=== PATIENT | female | born 1955 | race Caucasian/White ===

== ENCOUNTER → 2017-02-15 | Outpatient (CLI) | payer BC ==
[~2017-02-15] MED LIST: ASPI-586 PO; ASPI-999 PO; CARV3.122 PO; FURO20TA4 PO; FURO40TA4 PO; LISI-552 PO; METO-352 PO; SACU1TAB PO; SPIR25TA3 PO
[2017-02-15 08:55] LABS: ANION GAP 8 MMOL/L (5-14); BLOOD UREA NITROGEN 24 MG/DL (7-18); BUN/CREATININE RATIO 31; CARBON DIOXIDE 25 MMOL/L (21-32); CHLORIDE 101 MMOL/L (98-107); CREATININE SERUM 0.78 MG/DL (0.60-1.30); GFR ESTIMATED > 60; GLUCOSE 87 MG/DL (70-105); MAGNESIUM 1.9 MG/DL (1.8-2.4); POTASSIUM 4.5 MMOL/L (3.6-5.0); SODIUM 134 MMOL/L (135-145)
== END ==
LOC: LAB 08:13
PROVIDERS: ATTEND Internal Medicine Cardiovascular Disease
DX: I42.0 Dilated cardiomyopathy (principal)
CPT/HCPCS: 36415; 80048; 83735

== ENCOUNTER → 2017-02-18 | Outpatient (CLI) | payer BC ==
[2017-02-18 15:27] LABS: ANION GAP 9 MMOL/L (5-14); BLOOD UREA NITROGEN 34 MG/DL (7-18); BUN/CREATININE RATIO 40; CALCIUM 10.1 MG/DL (8.5-10.1); CARBON DIOXIDE 25 MMOL/L (21-32); CHLORIDE 106 MMOL/L (98-107); CREATININE SERUM 0.84 MG/DL (0.60-1.30); GFR ESTIMATED > 60; GLUCOSE 72 MG/DL (70-105); POTASSIUM 4.4 MMOL/L (3.6-5.0); SODIUM 140 MMOL/L (135-145)
== END ==
LOC: LAB 14:32
PROVIDERS: ATTEND Nurse Practitioner Family
DX: I50.21 Acute systolic (congestive) heart failure (principal); I42.0 Dilated cardiomyopathy; R06.00 Dyspnea, unspecified; I34.0 Nonrheumatic mitral (valve) insufficiency; E66.8 Other obesity
CPT/HCPCS: 36415; 80048; 83735

== ENCOUNTER 2017-02-27 20:52 | Outpatient (CLI) | payer BC | END 2017-02-28 06:04 | disposition home or self-care (01) | LOC: SLEEP 20:52 | PROVIDERS: ATTEND Nurse Practitioner Family | DX: G47.33 Obstructive sleep apnea (adult) (pediatric) (principal) | CPT/HCPCS: 95810 ==

== ENCOUNTER → 2017-03-24 | Outpatient (CLI) | payer BC ==
[2017-03-24 17:02] LABS: BASOPHILS # (AUTO) 0.1 10^3/uL (0.0-0.1); BASOPHILS % (AUTO) 1 % (0-10); EOSINOPHILS # (AUTO) 0.4 10^3/uL (0.0-0.3); EOSINOPHILS % (AUTO) 4 % (0-10); LYMPHOCYTES # (AUTO) 3.3 X 10^3 (1.0-4.0); LYMPHOCYTES % (AUTO) 40 % (12-44); MEAN CORPUSCULAR HEMOGLOBIN 23 PG (25-34); MEAN CORPUSCULAR HGB CONC 32 G/DL (32-36); MEAN CORPUSCULAR VOLUME 73 FL (80-99); MEAN PLATELET VOLUME 9.2 FL (7.4-10.4); MONOCYTES # (AUTO) 0.8 X 10^3 (0.0-1.0); MONOCYTES % (AUTO) 9 % (0-12); NEUTROPHILS # (AUTO) 3.9 X 10^3 (1.8-7.8); NEUTROPHILS % (AUTO) 47 % (42-75); PLATELET COUNT 443 10^3/uL (130-400); RED BLOOD COUNT 4.86 10^6/uL (4.35-5.85); RED CELL DISTRIBUTION WIDTH 19.6 % (10.0-14.5); WHITE BLOOD COUNT 8.4 10^3/uL (4.3-11.0)
[2017-03-24 17:16] LABS: ANION GAP 8 MMOL/L (5-14); BLOOD UREA NITROGEN 23 MG/DL (7-18); BUN/CREATININE RATIO 33; CALCIUM 9.8 MG/DL (8.5-10.1); CARBON DIOXIDE 25 MMOL/L (21-32); CHLORIDE 104 MMOL/L (98-107); GFR ESTIMATED > 60; GLUCOSE 78 MG/DL (70-105); MAGNESIUM 1.9 MG/DL (1.8-2.4); POTASSIUM 4.3 MMOL/L (3.6-5.0); SODIUM 137 MMOL/L (135-145)
== END ==
LOC: LAB 16:45
PROVIDERS: ATTEND Internal Medicine Cardiovascular Disease
DX: I50.22 Chronic systolic (congestive) heart failure (principal); I42.0 Dilated cardiomyopathy
CPT/HCPCS: 36415; 80048; 83735; 85025

== ENCOUNTER → 2017-05-06 | Outpatient (CLI) | payer BC | LOC: CARD 09:58 | PROVIDERS: ATTEND Internal Medicine Cardiovascular Disease | DX: I50.22 Chronic systolic (congestive) heart failure (principal); I42.0 Dilated cardiomyopathy; E66.8 Other obesity; G47.33 Obstructive sleep apnea (adult) (pediatric) | CPT/HCPCS: 93306 ==

== ENCOUNTER → 2018-02-18 | Outpatient (CLI) | payer BC ==
[~2018-02-18] MED LIST changes: -SPIR25TA3 PO; +SPIR25TA5 PO
[2018-02-18 08:10] LABS: BUN/CREATININE RATIO 37; CALCIUM 9.8 MG/DL (8.5-10.1); CARBON DIOXIDE 25 MMOL/L (21-32); CHLORIDE 105 MMOL/L (98-107); GFR ESTIMATED > 60; GLUCOSE 92 MG/DL (70-105); MAGNESIUM 1.9 MG/DL (1.8-2.4); SODIUM 138 MMOL/L (135-145)
== END ==
LOC: LAB 07:39
PROVIDERS: ATTEND Nurse Practitioner Family
DX: I42.0 Dilated cardiomyopathy (principal); I34.0 Nonrheumatic mitral (valve) insufficiency; I50.22 Chronic systolic (congestive) heart failure; G47.33 Obstructive sleep apnea (adult) (pediatric)
CPT/HCPCS: 36415; 80048; 83735

== ENCOUNTER → 2018-07-05 | Outpatient (CLI) | payer BC | LOC: CARD 09:07 | PROVIDERS: ATTEND Nurse Practitioner Family | DX: I42.0 Dilated cardiomyopathy (principal); G47.33 Obstructive sleep apnea (adult) (pediatric); I34.0 Nonrheumatic mitral (valve) insufficiency; I50.22 Chronic systolic (congestive) heart failure | CPT/HCPCS: 93306 ==

== ENCOUNTER 2018-11-06 20:04 | Emergency (ER) | payer BC ==
[~2018-11-06] VITALS: Ht 157.5 cm; Wt 81.6 kg
--- NOTE | 2018-11-06 20:07 | NUR ---
SEE TRAUMA FLOW SHEET
[2018-11-06] MEDS ORDERED: NS IV 500 ML 500 ML IV ONE (20:08)
--- OUTSIDE RECORDS SUMMARY | 2018-11-06 20:09 | XMS REPORT | Continuity of Care Document ---
Author Organization Unknown Address Unknown Phone Unavailable Allergies Active Description Code Type Severity Reaction Onset Reported/Identified Relationship to Patient Clinical Status Yes No Known Allergies [id number] Drug Allergy Unknown N/A 02/09/2017 Medications There is no data. Problems Date Dx Coded Attending Type Code Diagnosis Diagnosed By 04/02/2014 PAULA CANTU DO Ot 786.50 08/06/2016 PAULA CANTU DO Ot 786.50 CHEST PAIN NOS 02/05/2017 PAULA CANTU DO Ot 786.50 CHEST PAIN NOS 02/05/2017 PAULA CANTU DO Ot 786.50 CHEST PAIN NOS 02/10/2017 IGNACIO CAN MD, FACCP CCDS Ot E66.9 OBESITY, UNSPECIFIED 02/10/2017 IGNACIO CAN MD, FACCP CCDS Ot I27.20 PULMONARY HYPERTENSION, UNSPECIFIED 02/10/2017 IGNACIO CAN MD, FACCP CCDS Ot I34.0 NONRHEUMATIC MITRAL (VALVE) INSUFFICIENC 02/10/2017 IGNACIO CAN MD, FACC, FACP CCDS Ot I42.0 DILATED CARDIOMYOPATHY 02/10/2017 IGNACIO CAN MD, FACCP CCDS Ot I50.21 ACUTE SYSTOLIC (CONGESTIVE) HEART FAILUR 02/10/2017 IGNACIO CAN MD, FACCP CCDS Ot K21.9 GASTRO-ESOPHAGEAL REFLUX DISEASE WITHOUT 02/10/2017 IGNACIO CAN MD, FACCP CCDS Ot Z68.33 BODY MASS INDEX (BMI) 33.0-33.9, ADULT 02/10/2017 IGNACIO CNA MD, FACC, FACP CCDS Ot 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.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 02/10/2017 IGNACIO CAN MD, FACCP CCDS Ot Z79.899 OTHER INSTRUCTIONAL TECHNOLOGY TEACHER (CURRENT) DRUG THERAPY 02/10/2017 IGNACIO CAN MD, FACCP CCDS Ot Z87.891 PERSONAL HISTORY OF NICOTINE DEPENDENCE 02/24/2017 PAMELLA MD FACC, ALI FACP CCDS Ot I42.0 DILATED CARDIOMYOPATHY 02/28/2017 MERI GODDARD APRN Ot G47.10 HYPERSOMNIA, UNSPECIFIED 02/28/2017 MERI GODDARD APRN Ot G47.33 OBSTRUCTIVE SLEEP APNEA (ADULT) (PEDIATR 03/03/2017 MARCO NATHAN MARKETING PRODUCTION SPECIALIST Ot E66.8 OTHER OBESITY 03/03/2017 BAIMARCO ALEXIS MARKETING PRODUCTION SPECIALIST Ot I34.0 NONRHEUMATIC MITRAL (VALVE) INSUFFICIENC 03/03/2017 BAIMARCO ALEXIS L MARKETING PRODUCTION SPECIALIST Ot I42.0 DILATED CARDIOMYOPATHY 03/03/2017 BAIMARCO ALEXIS L MARKETING PRODUCTION SPECIALIST Ot I50.21 ACUTE SYSTOLIC (CONGESTIVE) HEART FAILUR 03/03/2017 SELVINMARCO ALEXIS MARKETING PRODUCTION SPECIALIST Ot R06.00 DYSPNEA, UNSPECIFIED 03/15/2017 PAMELLA ACKERMAN FACC, ALI FACP CCDS Ot E66.9 OBESITY, UNSPECIFIED 03/15/2017 PAMELLA ACKERMAN FACC, IGNACIO FACP CCDS Ot I27.20 PULMONARY HYPERTENSION, UNSPECIFIED 03/15/2017 PAMELLA ACKERMAN FACC, ALI FACP CCDS Ot I34.0 NONRHEUMATIC MITRAL (VALVE) INSUFFICIENC 03/15/2017 PAMELLA ACKERMAN FACC, IGNACIO FACP CCDS Ot I42.0 DILATED CARDIOMYOPATHY 03/15/2017 PAMELLA ACKERMAN FACC, ALI FACP CCDS Ot I50.21 ACUTE SYSTOLIC (CONGESTIVE) HEART FAILUR 03/15/2017 PAMELLA ACKERMAN FACC, IGNACIO FACP CCDS Ot K21.9 GASTRO-ESOPHAGEAL REFLUX DISEASE WITHOUT 03/15/2017 PAMELLA ACKERMAN FACC, ALI FACP CCDS Ot Z68.33 BODY MASS INDEX (BMI) 33.0-33.9, ADULT 03/15/2017 PAMELLA ACKERMAN FACC, IGNACIO FACP CCDS Ot Z79.82 PRISON (CURRENT) USE OF ASPIRIN 03/15/2017 IGNACIO CAN MD, FACC FACP CCDS Ot Z79.899 OTHER INSTRUCTIONAL TECHNOLOGY TEACHER (CURRENT) DRUG THERAPY 03/15/2017 PAMELLA ACKERMAN FACC, ALI FACP CCDS Ot Z87.891 PERSONAL HISTORY OF NICOTINE DEPENDENCE 04/07/2017 PAMELLA ACKERMAN FACC, IGNACIO FACP CCDS Ot I42.0 DILATED CARDIOMYOPATHY 04/07/2017 PAMELLA ACKERMAN FACC, ALI FACP CCDS Ot I50.22 CHRONIC SYSTOLIC (CONGESTIVE) HEART FAIL 05/07/2017 PAMELLA ACKERMAN FACC, ALI FACP CCDS Ot E66.8 OTHER OBESITY 05/07/2017 PAMELLA ACKERMAN FACC, ALI FACP CCDS Ot G47.33 OBSTRUCTIVE SLEEP APNEA (ADULT) (PEDIATR 05/07/2017 PAMELLA ACKERMAN FACC, ALI FACP CCDS Ot I42.0 DILATED CARDIOMYOPATHY 05/07/2017 PAMELLA ACKERMAN FACC, ALI FACP CCDS Ot I50.22 CHRONIC SYSTOLIC (CONGESTIVE) HEART FAIL 05/19/2017 PAMELLA ACKERMAN FACC, ALI FACP CCDS Ot E66.8 OTHER OBESITY 05/19/2017 PAMELLA ACKERMAN FACC, ALI FACP CCDS Ot G47.33 OBSTRUCTIVE SLEEP APNEA (ADULT) (PEDIATR 05/19/2017 PAMELLA ACKERMAN FACC, ALI FACP CCDS Ot I42.0 DILATED CARDIOMYOPATHY 05/19/2017 PAMELLA ACKERMAN FACC, ALI FACP CCDS Ot I50.22 CHRONIC SYSTOLIC (CONGESTIVE) HEART FAIL 09/21/2017 MERI GODDARD WELLHEAD PUMPER Ot G47.10 HYPERSOMNIA, UNSPECIFIED 09/21/2017 RUPESHMERI CLAYTON E WELLHEAD PUMPER Ot G47.33 OBSTRUCTIVE SLEEP APNEA (ADULT) (PEDIATR 09/23/2017 RUPESHMERI CLAYTON WELLHEAD PUMPER Ot G47.10 HYPERSOMNIA, UNSPECIFIED 09/23/2017 RUPESHMARIFER CLAYTONINE E WELLHEAD PUMPER Ot G47.33 OBSTRUCTIVE SLEEP APNEA (ADULT) (PEDIATR 02/18/2018 PAULA CANTU DO Ot 786.50 CHEST PAIN NOS 02/18/2018 PAMELLA ACKERMAN FACC, IGNACIO FACP CCDS Ot I42.0 DILATED CARDIOMYOPATHY 02/18/2018 MARCO NATHAN MARKETING PRODUCTION SPECIALIST Ot E66.8 OTHER OBESITY 02/18/2018 MARCO NATHAN MARKETING PRODUCTION SPECIALIST Ot I34.0 NONRHEUMATIC MITRAL (VALVE) INSUFFICIENC 02/18/2018 MARCO NATHAN MARKETING PRODUCTION SPECIALIST Ot I42.0 DILATED CARDIOMYOPATHY 02/18/2018 MARCO NATHAN L MARKETING PRODUCTION SPECIALIST Ot I50.21 ACUTE SYSTOLIC (CONGESTIVE) HEART FAILUR 02/18/2018 MARCO NATHAN MARKETING PRODUCTION SPECIALIST Ot R06.00 DYSPNEA, UNSPECIFIED 02/18/2018 PAMELLA ACKERMAN FACC, ALI FACP CCDS Ot I42.0 DILATED CARDIOMYOPATHY 02/18/2018 PAMELLA ACKERMAN FACC, IGNACIO FACP CCDS Ot I50.22 CHRONIC SYSTOLIC (CONGESTIVE) HEART FAIL 02/18/2018 PAMELLA ACKERMAN FACC, ALI FACP CCDS Ot E66.8 OTHER OBESITY 02/18/2018 PAMELLA ACKERMAN FACC, ALI FACP CCDS Ot G47.33 OBSTRUCTIVE SLEEP APNEA (ADULT) (PEDIATR 02/18/2018 PAMELLA ACKERMAN FACC, IGNACIO FACP CCDS Ot I42.0 DILATED CARDIOMYOPATHY 02/18/2018 PAMELLA ACKERMAN FACC, ALI FACP CCDS Ot I50.22 CHRONIC SYSTOLIC (CONGESTIVE) HEART FAIL 02/21/2018 BAIMA MARCO L MARKETING PRODUCTION SPECIALIST Ot G47.33 OBSTRUCTIVE SLEEP APNEA (ADULT) (PEDIATR 02/21/2018 BAIMA, MARCO L MARKETING PRODUCTION SPECIALIST Ot I34.0 NONRHEUMATIC MITRAL (VALVE) INSUFFICIENC 02/21/2018 BAIMA, MARCO L MARKETING PRODUCTION SPECIALIST Ot I42.0 DILATED CARDIOMYOPATHY 02/21/2018 BAIMA MARCO L MARKETING PRODUCTION SPECIALIST Ot I50.22 CHRONIC SYSTOLIC (CONGESTIVE) HEART FAIL 03/25/2018 BAIMA MARCO L MARKETING PRODUCTION SPECIALIST Ot G47.33 OBSTRUCTIVE SLEEP APNEA (ADULT) (PEDIATR 03/25/2018 BAIMA, MARCO L MARKETING PRODUCTION SPECIALIST Ot I34.0 NONRHEUMATIC MITRAL (VALVE) INSUFFICIENC 03/25/2018 BAIMA, MARCO L MARKETING PRODUCTION SPECIALIST Ot I42.0 DILATED CARDIOMYOPATHY 03/25/2018 BAIMA, MARCO L MARKETING PRODUCTION SPECIALIST Ot I50.22 CHRONIC SYSTOLIC (CONGESTIVE) HEART FAIL 06/27/2018 PAULA CANTU DO Ot 786.50 CHEST PAIN NOS 06/27/2018 PAMELLA ACKERMAN FACC, IGNACIO FACP CCDS Ot I42.0 DILATED CARDIOMYOPATHY 06/27/2018 BAIMAMARCO L MARKETING PRODUCTION SPECIALIST Ot E66.8 OTHER OBESITY 06/27/2018 BAIMA, MARCO L MARKETING PRODUCTION SPECIALIST Ot I34.0 NONRHEUMATIC MITRAL (VALVE) INSUFFICIENC 06/27/2018 BAIMA MARCO L MARKETING PRODUCTION SPECIALIST Ot I42.0 DILATED CARDIOMYOPATHY 06/27/2018 BAIMA, MARCO L MARKETING PRODUCTION SPECIALIST Ot I50.21 ACUTE SYSTOLIC (CONGESTIVE) HEART FAILUR 06/27/2018 JUAN NATHANHER L MARKETING PRODUCTION SPECIALIST Ot R06.00 DYSPNEA, UNSPECIFIED 06/27/2018 PAMELLA ACKERMAN FACC, ALI FACP CCDS Ot I42.0 DILATED CARDIOMYOPATHY 06/27/2018 PAMELLA ACKERMAN FACC, ALI FACP CCDS Ot I50.22 CHRONIC SYSTOLIC (CONGESTIVE) HEART FAIL 06/27/2018 PAMELLA ACKERMAN FACC, ALI FACP CCDS Ot E66.8 OTHER OBESITY 06/27/2018 PAMELLA ACKERMAN FACC, ALI FACP CCDS Ot G47.33 OBSTRUCTIVE SLEEP APNEA (ADULT) (PEDIATR 06/27/2018 PAMELLA ACKERMAN FACC, ALI FACP CCDS Ot I42.0 DILATED CARDIOMYOPATHY 06/27/2018 PAMELLA ACKERMAN FACC, ALI FACP CCDS Ot I50.22 CHRONIC SYSTOLIC (CONGESTIVE) HEART FAIL 06/27/2018 MARCO NATHAN MARKETING PRODUCTION SPECIALIST Ot G47.33 OBSTRUCTIVE SLEEP APNEA (ADULT) (PEDIATR 06/27/2018 MARCO NATHAN MARKETING PRODUCTION SPECIALIST Ot I34.0 NONRHEUMATIC MITRAL (VALVE) INSUFFICIENC 06/27/2018 SELVINMAMARCO MARKETING PRODUCTION SPECIALIST Ot I42.0 DILATED CARDIOMYOPATHY 06/27/2018 BAIMAMARCO L MARKETING PRODUCTION SPECIALIST Ot I50.22 CHRONIC SYSTOLIC (CONGESTIVE) HEART FAIL 07/05/2018 PAULA CANTU DO Ot 786.50 CHEST PAIN NOS 07/05/2018 PAMELLA ACKERMAN FACC, ALI FACP CCDS Ot I42.0 DILATED CARDIOMYOPATHY 07/05/2018 MARCO NATHAN MARKETING PRODUCTION SPECIALIST Ot E66.8 OTHER OBESITY 07/05/2018 MARCO NATHAN L MARKETING PRODUCTION SPECIALIST Ot I34.0 NONRHEUMATIC MITRAL (VALVE) INSUFFICIENC 07/05/2018 MARCO NATHAN MARKETING PRODUCTION SPECIALIST Ot I42.0 DILATED CARDIOMYOPATHY 07/05/2018 SELVINMAMARCO L MARKETING PRODUCTION SPECIALIST Ot I50.21 ACUTE SYSTOLIC (CONGESTIVE) HEART FAILUR 07/05/2018 MARCO NATHAN MARKETING PRODUCTION SPECIALIST Ot R06.00 DYSPNEA, UNSPECIFIED 07/05/2018 PAMELLA ACKERMAN FACC, IGNACIO FACP CCDS Ot I42.0 DILATED CARDIOMYOPATHY 07/05/2018 PAMELLA ACKERMAN FACC, ALI FACP CCDS Ot I50.22 CHRONIC SYSTOLIC (CONGESTIVE) HEART FAIL 07/05/2018 PAMELLA ACKERMAN FACC, ALI FACP CCDS Ot E66.8 OTHER OBESITY 07/05/2018 PAMELLA ACKERMAN FACC, ALI FACP CCDS Ot G47.33 OBSTRUCTIVE SLEEP APNEA (ADULT) (PEDIATR 07/05/2018 PAMELLA ACKERMAN FACC, ALI FACMatthew CCDS Ot I42.0 DILATED CARDIOMYOPATHY 07/05/2018 PAMELLA ACKERMAN FACC, ALI FACP CCDS Ot I50.22 CHRONIC SYSTOLIC (CONGESTIVE) HEART FAIL 07/05/2018 BAIMA, MARCO L MARKETING PRODUCTION SPECIALIST Ot G47.33 OBSTRUCTIVE SLEEP APNEA (ADULT) (PEDIATR 07/05/2018 BAIMA, MARCO L MARKETING PRODUCTION SPECIALIST Ot I34.0 NONRHEUMATIC MITRAL (VALVE) INSUFFICIENC 07/05/2018 BAIMA, MACRO L MARKETING PRODUCTION SPECIALIST Ot I42.0 DILATED CARDIOMYOPATHY 07/05/2018 BAIMA, MARCO L MARKETING PRODUCTION SPECIALIST Ot I50.22 CHRONIC SYSTOLIC (CONGESTIVE) HEART FAIL 08/31/2018 SELVINMA, MARCO L MARKETING PRODUCTION SPECIALIST Ot G47.33 OBSTRUCTIVE SLEEP APNEA (ADULT) (PEDIATR 08/31/2018 BAIMA, MARCO L MARKETING PRODUCTION SPECIALIST Ot I34.0 NONRHEUMATIC MITRAL (VALVE) INSUFFICIENC 08/31/2018 BAIMA, MARCO L MARKETING PRODUCTION SPECIALIST Ot I42.0 DILATED CARDIOMYOPATHY 08/31/2018 BAIMA, MARCO L MARKETING PRODUCTION SPECIALIST Ot I50.22 CHRONIC SYSTOLIC (CONGESTIVE) HEART FAIL 10/10/2018 SELVINMA, MARCO L MARKETING PRODUCTION SPECIALIST Ot G47.33 OBSTRUCTIVE SLEEP APNEA (ADULT) (PEDIATR 10/10/2018 BAIMA, MARCO L MARKETING PRODUCTION SPECIALIST Ot I34.0 NONRHEUMATIC MITRAL (VALVE) INSUFFICIENC 10/10/2018 BAIMA, MARCO L MARKETING PRODUCTION SPECIALIST Ot I42.0 DILATED CARDIOMYOPATHY 10/10/2018 BAIMA, MACRO L MARKETING PRODUCTION SPECIALIST Ot I50.22 CHRONIC SYSTOLIC (CONGESTIVE) HEART FAIL 10/10/2018 BAIMA, MARCO L MARKETING PRODUCTION SPECIALIST Ot G47.33 OBSTRUCTIVE SLEEP APNEA (ADULT) (PEDIATR 10/10/2018 BAIMA, MARCO L MARKETING PRODUCTION SPECIALIST Ot I34.0 NONRHEUMATIC MITRAL (VALVE) INSUFFICIENC 10/10/2018 BAIMA, MARCO L MARKETING PRODUCTION SPECIALIST Ot I42.0 DILATED CARDIOMYOPATHY 10/10/2018 BAIMA, MARCO L MARKETING PRODUCTION SPECIALIST Ot I50.22 CHRONIC SYSTOLIC (CONGESTIVE) HEART FAIL Procedures There is no data. Results Test Result Range Automated blood complete blood count (hemogram) panel - 02/09/17 07:40 Blood leukocytes automated count (number/volume) 9.0 10*3/uL 4.3-11.0 Blood erythrocytes automated count (number/volume) 4.73 10*6/uL 4.35-5.85 Venous blood hemoglobin measurement (mass/volume) 10.4 g/dL 11.5-16.0 Blood hematocrit (volume fraction) 34 % 35-52 Automated erythrocyte mean corpuscular volume 72 [foz_us] 80-99 Automated erythrocyte mean corpuscular hemoglobin (mass per erythrocyte) 22 pg 25-34 Automated erythrocyte mean corpuscular hemoglobin concentration measurement (mass/volume) 31 g/dL 32-36 Automated erythrocyte distribution width ratio 17.2 % 10.0- 14.5 Automated blood platelet count (count/volume) 434 10*3/uL 130-400 Automated blood platelet mean volume measurement 9.6 [foz_us] 7.4-10.4 PT panel in platelet poor plasma by coagulation assay - 02/09/17 07:40 Prothrombin time (PT) in platelet poor plasma by coagulation assay 12.8 s 12.2-14.7 INR in platelet poor plasma or blood by coagulation assay 1.0 0.8-1.4 Activated partial thromboplastin time (aPTT) in platelet poor plasma bycoagulation assay - 02/09/17 07:40 Activated partial thromboplastin time (aPTT) in platelet poor plasma bycoagulation assay 27 s 24-35 Comprehensive metabolic panel - 02/09/17 07:40 Serum or plasma sodium measurement (moles/volume) 141 mmol/L 135-145 Serum or plasma potassium measurement (moles/volume) 3.7 mmol/L 3.6-5.0 Serum or plasma chloride measurement (moles/volume) 107 mmol/L 98-107 Carbon dioxide 25 mmol/L 21-32 Serum or plasma anion gap determination (moles/volume) 9 mmol/L 5-14 Serum or plasma urea nitrogen measurement (mass/volume) 26 mg/dL 7-18 Serum or plasma creatinine measurement (mass/volume) 0.72 mg/dL 0.60-1.30 Serum or plasma urea nitrogen/creatinine mass ratio 36 NRG Serum or plasma creatinine measurement with calculation of estimated glomerular filtration rate > NRG Serum or plasma glucose measurement (mass/volume) 84 mg/dL 70-105 Serum or plasma calcium measurement (mass/volume) 9.4 mg/dL 8.5-10.1 Serum or plasma total bilirubin measurement (mass/volume) 0.4 mg/dL 0.1-1.0 Serum or plasma alkaline phosphatase measurement (enzymatic activity/volume) 68 U/L 40-136 Serum or plasma aspartate aminotransferase measurement (enzymatic activity/volume) 16 U/L 5-34 Serum or plasma alanine aminotransferase measurement (enzymatic activity/volume) 16 U/L 0-55 Serum or plasma protein measurement (mass/volume) 7.4 g/dL 6.4-8.2 Serum or plasma albumin measurement (mass/volume) 3.8 g/dL 3.2-4.5 Lipid 1996 panel - 02/09/17 07:40 Serum or plasma triglyceride measurement (mass/volume) 69 mg/dL <150 Serum or plasma cholesterol measurement (mass/volume) 176 mg/dL < 200 Serum or plasma cholesterol in HDL measurement (mass/volume) 72 mg/dL 40-60 Cholesterol in LDL [mass/volume] in serum or plasma by direct assay 98 mg/dL 1-129 Serum or plasma cholesterol in VLDL measurement (mass/volume) 14 mg/dL 5-40 THYROID STIMULATING HORMONE - 02/09/17 07:40 THYROID STIMULATING HORMONE 1.27 u[iU]/mL 0.35-4.94 Methicillin resistant Staphylococcus aureus (MRSA) screening culture - 02/09/17 07:40 Methicillin resistant Staphylococcus aureus (MRSA) screening culture NEG NRG Arterial blood oxygen saturation measurement - 02/09/17 09:06 Arterial blood oxygen saturation measurement 68 % 94-100 Arterial blood oxygen saturation measurement - 02/09/17 09:08 Arterial blood oxygen saturation measurement 66 % 94-100 Arterial blood oxygen saturation measurement - 02/09/17 09:10 Arterial blood oxygen saturation measurement 95 % 94-100 Arterial blood oxygen saturation measurement - 02/09/17 09:13 Arterial blood oxygen saturation measurement 66 % 94-100 Arterial blood oxygen saturation measurement - 02/09/17 09:14 Arterial blood oxygen saturation measurement 64 % 94-100 Automated blood complete blood count (hemogram) panel - 02/10/17 04:20 Blood leukocytes automated count (number/volume) 7.9 10*3/uL 4.3-11.0 Blood erythrocytes automated count (number/volume) 4.78 10*6/uL 4.35-5.85 Venous blood hemoglobin measurement (mass/volume) 10.4 g/dL 11.5-16.0 Blood hematocrit (volume fraction) 34 % 35-52 Automated erythrocyte mean corpuscular volume 71 [foz_us] 80-99 Automated erythrocyte mean corpuscular hemoglobin (mass per erythrocyte) 22 pg 25-34 Automated erythrocyte mean corpuscular hemoglobin concentration measurement (mass/volume) 31 g/dL 32-36 Automated erythrocyte distribution width ratio 17.2 % 10.0- 14.5 Automated blood platelet count (count/volume) 397 10*3/uL 130-400 Automated blood platelet mean volume measurement 10.2 [foz_us] 7.4-10.4 Whole blood basic metabolic panel - 02/10/17 04:20 Serum or plasma sodium measurement (moles/volume) 137 mmol/L 135-145 Serum or plasma potassium measurement (moles/volume) 3.9 mmol/L 3.6-5.0 Serum or plasma chloride measurement (moles/volume) 106 mmol/L 98-107 Carbon dioxide 23 mmol/L 21-32 Serum or plasma anion gap determination (moles/volume) 8 mmol/L 5-14 Serum or plasma urea nitrogen measurement (mass/volume) 23 mg/dL 7-18 Serum or plasma creatinine measurement (mass/volume) 0.63 mg/dL 0.60-1.30 Serum or plasma urea nitrogen/creatinine mass ratio 37 NRG Serum or plasma creatinine measurement with calculation of estimated glomerular filtration rate > NRG Serum or plasma glucose measurement (mass/volume) 91 mg/dL 70-105 Serum or plasma calcium measurement (mass/volume) 9.2 mg/dL 8.5-10.1 Magnesium - 02/10/17 04:20 Magnesium 2.0 mg/dL 1.8-2.4 Complete blood count (CBC) with automated white blood cell (WBC) differential - 03/24/17 16:58 Blood leukocytes automated count (number/volume) 8.4 10*3/uL 4.3-11.0 Blood erythrocytes automated count (number/volume) 4.86 10*6/uL 4.35-5.85 Venous blood hemoglobin measurement (mass/volume) 11.3 g/dL 11.5-16.0 Blood hematocrit (volume fraction) 35 % 35-52 Automated erythrocyte mean corpuscular volume 73 [foz_us] 80-99 Automated erythrocyte mean corpuscular hemoglobin (mass per erythrocyte) 23 pg 25-34 Automated erythrocyte mean corpuscular hemoglobin concentration measurement (mass/volume) 32 g/dL 32-36 Automated erythrocyte distribution width ratio 19.6 % 10.0- 14.5 Automated blood platelet count (count/volume) 443 10*3/uL 130-400 Automated blood platelet mean volume measurement 9.2 [foz_us] 7.4-10.4 Automated blood neutrophils/100 leukocytes 47 % 42-75 Automated blood lymphocytes/100 leukocytes 40 % 12-44 Blood monocytes/100 leukocytes 9 % 0-12 Automated blood eosinophils/100 leukocytes 4 % 0-10 Automated blood basophils/100 leukocytes 1 % 0-10 Blood neutrophils automated count (number/volume) 3.9 10*3 1.8-7.8 Blood lymphocytes automated count (number/volume) 3.3 10*3 1.0-4.0 Blood monocytes automated count (number/volume) 0.8 10*3 0.0- 1.0 Automated eosinophil count 0.4 10*3/uL 0.0-0.3 Automated blood basophil count (count/volume) 0.1 10*3/uL 0.0-0.1 Whole blood basic metabolic panel - 03/24/17 16:58 Serum or plasma sodium measurement (moles/volume) 137 mmol/L 135-145 Serum or plasma potassium measurement (moles/volume) 4.3 mmol/L 3.6-5.0 Serum or plasma chloride measurement (moles/volume) 104 mmol/L 98-107 Carbon dioxide 25 mmol/L 21-32 Serum or plasma anion gap determination (moles/volume) 8 mmol/L 5-14 Serum or plasma urea nitrogen measurement (mass/volume) 23 mg/dL 7-18 Serum or plasma creatinine measurement (mass/volume) 0.70 mg/dL 0.60-1.30 Serum or plasma urea nitrogen/creatinine mass ratio 33 NRG Serum or plasma creatinine measurement with calculation of estimated glomerular filtration rate > NRG Serum or plasma glucose measurement (mass/volume) 78 mg/dL 70-105 Serum or plasma calcium measurement (mass/volume) 9.8 mg/dL 8.5-10.1 Magnesium - 03/24/17 16:58 Magnesium 1.9 mg/dL 1.8-2.4 Encounters ACCT No. Visit Date/Time Discharge Status Pt. Type Provider Facility Loc./Unit Complaint [id number] 07/05/2018 09:07:00 07/05/2018 23:59:59 CLS Outpatient JACMARCO MARKETING PRODUCTION SPECIALIST [facility] CARD DILATED CARDIOMYOPATHY [id number] 02/18/2018 07:39:00 02/18/2018 23:59:59 CLS Outpatient SELVINMARCO ALEXISP [facility] LAB I42.0,G47.33,I34.0 [id number] 05/06/2017 09:58:00 05/06/2017 23:59:59 CLS Outpatient PAMELLA ACKERMAN FACC, ALI FACP CCDS [facility] CARD CHF-CONGESTIVE HEART FAILURE [id number] 03/24/2017 16:45:00 03/24/2017 23:59:59 CLS Outpatient PAMELLA ACKERMAN FACC, ALI FACP CCDS [facility] LAB I50.22 I42.10 [id number] 02/27/2017 20:52:00 02/28/2017 06:04:00 DIS Outpatient MERI GODDARD APRN [facility] SLEEP G47.33,G47.10,G47.50,G47.9,R53.83 [id number] 02/18/2017 14:32:00 02/18/2017 23:59:59 CLS Outpatient JACMARCO MARKETING PRODUCTION SPECIALIST [facility] LAB I50.21, I42.0, R06.00, I34.0, E66.8 [id number] 02/15/2017 08:13:00 02/15/2017 23:59:59 CLS Outpatient PAMELLA ACKERMAN FACC, ALI FACP CCDS [facility] LAB I42.0 [id number] 02/09/2017 07:16:00 02/10/2017 17:00:00 DIS Outpatient PAMELLA ACKERMAN FACC, ALI FACP CCDS [facility] CATH CHF,MITRAL REGURIGITATION,OBESITY [id number] 09/29/2013 07:02:00 09/29/2013 23:59:59 CLS Outpatient PAULA CANTU DO [facility] CARD CHEST PAIN 786.50
[2018-11-06] MEDS ORDERED: fentaNYL INJECTION 100 MCG/2 ML AMP IVP ONE ×2 (20:15→20:45)
[2018-11-06 20:20] LABS: BASOPHILS # (AUTO) 0.1 10^3/uL (0.0-0.1); BASOPHILS % (AUTO) 1 % (0-10); EOSINOPHILS # (AUTO) 0.4 10^3/uL (0.0-0.3); EOSINOPHILS % (AUTO) 4 % (0-10); HEMATOCRIT 34 % (35-52); HEMOGLOBIN 10.6 G/DL (11.5-16.0); LYMPHOCYTES # (AUTO) 3.4 X 10^3 (1.0-4.0); LYMPHOCYTES % (AUTO) 35 % (12-44); MEAN CORPUSCULAR HEMOGLOBIN 22 PG (25-34); MEAN CORPUSCULAR HGB CONC 31 G/DL (32-36); MEAN CORPUSCULAR VOLUME 71 FL (80-99); MEAN PLATELET VOLUME 9.1 FL (7.4-10.4); MONOCYTES # (AUTO) 0.8 X 10^3 (0.0-1.0); MONOCYTES % (AUTO) 8 % (0-12); NEUTROPHILS # (AUTO) 5.1 X 10^3 (1.8-7.8); NEUTROPHILS % (AUTO) 53 % (42-75); PLATELET COUNT 510 10^3/uL (130-400); RED CELL DISTRIBUTION WIDTH 18.3 % (10.0-14.5); WHITE BLOOD COUNT 9.8 10^3/uL (4.3-11.0)
--- NOTE | 2018-11-06 20:23 | ED Trauma-Vehiclar ---
General Stated Complaint: POSSIBLE BROKEN LEG Time Seen by MD: 20:08 Source: patient, family Exam Limitations: no limitations History of Present Illness Date Seen by Provider: Nov 06, 2018 Time Seen by Provider: 20:06 Initial Comments Patient presents to the ER by private conveyance with chief complaint that just prior to arrival she was helping her family get a trailer and fell off the hanna and pinned her left thigh against the vehicle. The remainder get a trailer off her bring her in. She has obvious fracture deformity and superficial abrasion/laceration of her anterior distal one third of her femur. She has feeling in her toes. She is not able to put any weight on that foot. No previous history of fracture in the knee or hip. She has had a gallbladder in the past. Has a history of heart failure but no other significant medical problems. Followed by Dr. Hurt and Dr. Sandoval. She had something to drink about an hour prior to arrival at 1900 and something to eat at 1500. She is over 10 years since her last tetanus shot. Allergies and Home Medications Allergies Coded Allergies: No Known Allergies (Unverified Allergy, Unknown, 02/09/17) Home Medications Aspirin 81 Mg Tab.chew, 81 MG PO DAILY Prescribed by: IGNACIO SANDOVAL on 02/10/17720 Carvedilol 3.125 Mg Tablet, 60 MG PO BID Prescribed by: TISHA CEDILLO on 02/10/17 1017 Furosemide 40 Mg Tablet, 40 MG PO DAILY Prescribed by: IGNACIO SANDOVAL on 02/10/17720 Sacubitril/Valsartan 1 Each Tablet, 1 EACH PO BID Prescribed by: IGNACIO SANDOVAL on 02/10/17720 Spironolactone 25 Mg Tablet, 25 MG PO DAILY Prescribed by: IGNACIO SANDOVAL on 02/10/17720 Patient Home Medication List Home Medication List Reviewed: Yes Review of Systems Review of Systems Constitutional: No chills, No diaphoresis Eyes: Denies Blindness, Denies Blurred Vision Ears: Denies Dizziness, Denies Pain Nose: No Bloody Discharge, No Clear Discharge Mouth: No Bloody Discharge, No Clear Discharge Throat: No Aphonia, No Discharge Respiratory: No cough, No wheezing Cardiovascular: Denies Chest Pain, Denies Edema Past Hooufry-Jmndln-Yrzmow Hx Patient Social History Alcohol Use: Rarely Uses Recreational Drug Use: No Smoking Status: Never a Smoker Past Medical History Chronic Bronchitis Physical Exam Vital Signs Vital Signs - First Documented 11/06/18 20:07 Temp 98.9 Pulse 82 Resp 24 B/P (MAP) 144/80 (101) Pulse Ox 95 O2 Delivery Room Air Capillary Refill : Height, Weight, BMI Height: 5'2.00" Weight: 180lbs. 0.0oz. 81.006212cx; 32.9 BMI Method: General Appearance: WD/WN, moderate distress HEENT: PERRL/EOMI, pharynx normal Neck: full range of motion, normal inspection Cardiovascular: normal peripheral pulses, regular rate, rhythm Respiratory: lungs clear, normal breath sounds, no respiratory distress, no accessory muscle use Peripheral Pulses: 2+ Dorsalis Pedis (R); 1+ Left Dors-Pedis (L); 2+ Radial Pulses (R), 2+ Radial Pulses (L) Gastrointestinal: normal bowel sounds, non tender, soft Neurologic/Psychiatric: no motor/sensory deficits, alert, normal mood/affect, oriented x 3 Procedures/Interventions Progress Lesley splint was placed after giving additional 75 g of fentanyl, end-tidal CO2 monitoring and 60 mg of Norflex. Patient tolerated placement at 15 pounds pressure. Pulse was still dopplerable on the dorsal pedal and oxygen sat probe was placed. Capillary refill right eye 3 seconds. Sensation intact. Patient is comfortable pain 3 out of [address] Progress/Results/Core Measures Results/Orders Lab Results Laboratory Tests Test 11/06/18 20:11 11/06/18 20:27 Range/Units White Blood Count 9.8 4.3-11.0 10^3/uL Red Blood Count 4.75 4.35-5.85 10^6/uL Hemoglobin 10.6 L 11.5-16.0 G/DL Hematocrit 34 L 35-52 % Mean Corpuscular Volume 71 L 80-99 FL Mean Corpuscular Hemoglobin 22 L 25-34 PG Mean Corpuscular Hemoglobin Concent 31 L 32-36 G/DL Red Cell Distribution Width 18.3 H 10.0-14.5 % Platelet Count 510 H 130-400 10^3/uL Mean Platelet Volume 9.1 7.4-10.4 FL Neutrophils (%) (Auto) 53 42-75 % Lymphocytes (%) (Auto) 35 12-44 % Monocytes (%) (Auto) 8 0-12 % Eosinophils (%) (Auto) 4 0-10 % Basophils (%) (Auto) 1 0-10 % Neutrophils # (Auto) 5.1 1.8-7.8 X 10^3 Lymphocytes # (Auto) 3.4 1.0-4.0 X 10^3 Monocytes # (Auto) 0.8 0.0-1.0 X 10^3 Eosinophils # (Auto) 0.4 H 0.0-0.3 10^3/uL Basophils # (Auto) 0.1 0.0-0.1 10^3/uL Sodium Level 140 135-145 MMOL/L Potassium Level 4.3 3.6-5.0 MMOL/L Chloride Level 105 98-107 MMOL/L Carbon Dioxide Level 20 L 21-32 MMOL/L Anion Gap 15 H 5-14 MMOL/L Blood Urea Nitrogen 26 H 7-18 MG/DL Creatinine 0.93 0.60-1.30 MG/DL Estimat Glomerular Filtration Rate > 60 BUN/Creatinine Ratio 28 Glucose Level 110 H 70-105 MG/DL Calcium Level 9.8 8.5-10.1 MG/DL Corrected Calcium 9.9 8.5-10.1 MG/DL Total Bilirubin 0.2 0.1-1.0 MG/DL Aspartate Amino Transf (AST/SGOT) 17 5-34 U/L Alanine Aminotransferase (ALT/SGPT) 18 0-55 U/L Alkaline Phosphatase 74 40-136 U/L Total Creatine Kinase 55 29-168 U/L B-Type Natriuretic Peptide 84.1 <100.0 PG/ML Total Protein 7.7 6.4-8.2 GM/DL Albumin 3.9 3.2-4.5 GM/DL Serum Alcohol < 10 <10 MG/DL Urine Color YELLOW Urine Clarity CLEAR Urine pH 5 5-9 Urine Specific [place] 1.030 H 1.016-1.022 Urine Protein 1+ H NEGATIVE Urine Glucose (UA) NEGATIVE NEGATIVE Urine Ketones 1+ H NEGATIVE Urine Nitrite NEGATIVE NEGATIVE Urine Bilirubin NEGATIVE NEGATIVE Urine Urobilinogen NORMAL NORMAL MG/DL Urine Leukocyte Esterase 1+ H NEGATIVE Urine RBC (Auto) 2+ H NEGATIVE Urine RBC 0-2 /HPF Urine WBC 0-2 /HPF Urine Squamous Epithelial Cells 10-25 H /HPF Urine Renal Epithelial Cells 0-2 /HPF Urine Crystals PRESENT H /LPF Urine Calcium Oxalate Crystals FEW H /LPF Urine Bacteria TRACE /HPF Urine Casts NONE /LPF Urine Mucus MODERATE H /LPF Urine Culture Indicated NO Urine Opiates Screen NEGATIVE NEGATIVE Urine Oxycodone Screen NEGATIVE NEGATIVE Urine Methadone Screen NEGATIVE NEGATIVE Urine Propoxyphene Screen NEGATIVE NEGATIVE Urine Barbiturates Screen NEGATIVE NEGATIVE Ur Tricyclic Antidepressants Screen NEGATIVE NEGATIVE Urine Phencyclidine Screen NEGATIVE NEGATIVE Urine Amphetamines Screen NEGATIVE NEGATIVE Urine Methamphetamines Screen NEGATIVE NEGATIVE Urine Benzodiazepines Screen NEGATIVE NEGATIVE Urine Cocaine Screen NEGATIVE NEGATIVE Urine Cannabinoids Screen NEGATIVE NEGATIVE My Orders Orders - GOPAL CEDEÑO Alcohol (11/06/18 20:08) Cbc With Automated Diff (11/06/18 20:08) Comprehensive Metabolic Panel (11/06/18 20:08) Creatine Kinase (11/06/18 20:08) Drug Screen Stat (Urine) (11/06/18 20:08) Ua Culture If Indicated (11/06/18 20:08) Ed Iv/Invasive Line Start (11/06/18 20:08) Ns Iv 500 Ml (Sodium Chloride 0.9%) (11/06/18 20:08) Fentanyl Injection (Sublimaze Injection (11/06/18 20:15) End Tidal Co2 (11/06/18 20:08) Catheter(Urinary) Insert & Ass 03,15 (11/06/18 20:08) Type And Screen (11/06/18 20:08) Dipht,Pertuss(Acell),Tet Adult (Boostrix (11/06/18 20:30) Fentanyl Injection (Sublimaze Injection (11/06/18 20:45) Orphenadrine Injection (Norflex Injectio (11/06/18 20:45) Orphenadrine Injection (Norflex Injectio (11/06/18 20:31) Cefazolin Injection (Ancef Injection) (11/06/18 20:45) BNP (11/06/18 20:53) Medications Given in ED Current Medications Medications Dose Ordered Sig/Emmy Route Start Time Stop Time Status Last Admin Dose Admin Cefazolin Sodium 1000 mg/Sterile Water 10 ml @ 200 mls/hr ONCE ONCE IV 11/06/18 20:45 11/06/18 20:47 DC 11/06/18 20:49 200 MLS/HR Diphtheria/ Tetanus/Acell Pertussis 0.5 ml ONCE ONCE IM 11/06/18 20:30 11/06/18 20:31 DC 11/06/18 20:50 0.5 ML Fentanyl Citrate 75 mcg ONCE ONCE IVP 11/06/18 20:15 11/06/18 20:16 DC 11/06/18 20:18 75 MCG Fentanyl Citrate 75 mcg ONCE ONCE IVP 11/06/18 20:45 11/06/18 20:46 DC 11/06/18 20:40 75 MCG Orphenadrine Citrate 60 mg ONCE ONCE IV 11/06/18 20:45 11/06/18 20:46 DC 11/06/18 20:41 60 MG Sodium Chloride 500 ml @ 0 mls/hr Q0M ONCE IV 11/06/18 20:08 11/06/18 20:12 DC 11/06/18 20:18 0 MLS/HR Vital Signs/I&O 11/06/18 11/06/18 20:07 20:28 Temp 98.9 Pulse 82 Resp 24 B/P (MAP) 144/80 (101) Pulse Ox 95 94 O2 Delivery Room Air Room Air Progress Progress Note : Time: 20:34 Progress Note X-ray, positioning and a Lesley traction splint placed. Then 75 mcg of fentanyl. Patient says the pains 10 out of 10 with movement or 2 out of 10 at rest in a comfortable position. Diagnostic Imaging Diagonstic Imaging: Xray Plain Films/CT/US/NM/MRI: femur (l) Comments NAME: SAMUEL WHITING [facility] REC#: [id number] PT STATUS: REG ER : 1955 PHYSICIAN: ESTEPHANIE MIGUEL APRN ADMIT DATE: 11/06/18/ER Draft Date of Exam:11/06/18 FEMUR, LEFT, 2 VIEWS EXAMINATION: Left femur, 2 views. 3 images. COMPARISON: None. HISTORY: 63-year-old female, injury. FINDINGS: There is a displaced fracture involving the distal femoral diaphysis. The distal fracture fragment is displaced posteriorly by approximately 7.6 cm. There is override of fracture fragments by an estimated 5.3 cm. The distal femur fracture fragment is abnormally anteriorly angulated. There is prominent lucency within the anterior soft tissues near the level of the fracture site likely relating to soft tissue injury and potentially a penetrating injury. The distal fracture fragment is also laterally angulated. The left hip is not obviously dislocated. IMPRESSION: 1. Displaced and abnormally angulated fracture of the distal left femoral diaphysis. 2. Prominent areas of lucency in the anterior soft tissues near the fracture site which may relate to penetrating type injury and soft tissue injury. Dictated on workstation # [id number] Dict: 11/06/182024 Trans: 11/06/182034 PJSiri [id number] Interpreted by: RAJANI GILL MD Electronically signed by: Reviewed: Reviewed by Me Diagonstic Imaging: Xray Plain Films/CT/US/NM/MRI: femur Comments NAME: SAMUEL WHITING [facility] REC#: [id number] PT STATUS: REG ER : 1955 PHYSICIAN: ESTEPHANIE MIGUEL APRN ADMIT DATE: 11/06/18/ER Signed Date of Exam:11/06/18 FEMUR, LEFT, 2 VIEWS EXAMINATION: Left femur, 2 views. COMPARISON: November 06, 2018 at 2014 hours. HISTORY: 63-year-old female, reduction of left femur fracture. FINDINGS: There is a redemonstrated comminuted displaced fracture of the distal femoral diaphysis. The distal fracture fragment is displaced posteriorly by approximately 3.2 cm. There is no significant override of the fracture fragments. There is significantly less angulation of the fracture site and interval improved bone alignment since the comparison exam. There are areas of abnormal lucency within the soft tissues which may relate to a penetrating type injury. IMPRESSION: Interval improved alignment of the comminuted displaced left distal femoral diaphyseal fracture. Dictated by: Dictated on workstation # [id number] Dict: 11/06/182056 Trans: 11/06/182101 PJE [id number] Interpreted by: RAJANI GILL MD Electronically signed by: RAJANI GILL MD 11/06/182101 Reviewed: Reviewed by Me Departure Impression Primary Impression: Femur fracture, left Disposition: 02 XFER SHT-TRM HOSP Condition: Stable Transfer Time Spoke to Accepting Phy: 20:40 Transfer Progress Notes 2020: Discussed the case with orthopedic surgeon Dr. Bianchi from [facility] who recommended that the fracture looked more complicated than he felt comfortable treating. He recommended transfer to or [place]. 2029: Discussed the case with Dr. Bajwa, orthopedic surgery at [place], [place] and he recommends that he would accept the patient if we transfer them. 2039: Discussed the case with Dr. Cramer, ER and he recommended splint traction and agreed with Ancef for possible open fracture and that he would accept the patient to the ER directly. Transfer Time: 21:41 Transfer Facility: [place], [place]. ER Method of Transfer: EMS Departure-Patient Inst. Referrals: JASMYNE HURT MD (PCP/Family) Primary Care Physician Copy Copies To 1: JASMYNE HURT MD, TITUS J Nov 06, 2018 20:23
[2018-11-06] MEDS ORDERED: TETANUS,DIPTH,PERTUSS P/F (BOOSTRIX) 0.5 ML VIAL IM ONE (20:30)
[2018-11-06] MEDS ORDERED: ORPHENADRINE 60 MG/2 ML (NORFLEX) AMP ONE (20:31)
--- NOTE | 2018-11-06 20:36 | Diagnostic Imaging Report ---
EXAMINATION: Left femur, 2 views. 3 images. COMPARISON: None. HISTORY: 63-year-old female, injury. FINDINGS: There is a displaced fracture involving the distal femoral diaphysis. The distal fracture fragment is displaced posteriorly by approximately 7.6 cm. There is override of fracture fragments by an estimated 5.3 cm. The distal femur fracture fragment is abnormally anteriorly angulated. There is prominent lucency within the anterior soft tissues near the level of the fracture site likely relating to soft tissue injury and potentially a penetrating injury. The distal fracture fragment is also laterally angulated. The left hip is not obviously dislocated. IMPRESSION: 1. Displaced and abnormally angulated fracture of the distal left femoral diaphysis. 2. Prominent areas of lucency in the anterior soft tissues near the fracture site which may relate to penetrating type injury and soft tissue injury. Dictated by: Dictated on workstation # [id number]
[2018-11-06 20:37] LABS: ALANINE AMINOTRANSFERASE 18 U/L (0-55); ALBUMIN 3.9 GM/DL (3.2-4.5); ALKALINE PHOSPHATASE 74 U/L (40-136); BILIRUBIN,TOTAL 0.2 MG/DL (0.1-1.0); BUN/CREATININE RATIO 28; CALCIUM 9.8 MG/DL (8.5-10.1); CARBON DIOXIDE 20 MMOL/L (21-32); CHLORIDE 105 MMOL/L (98-107); CREATINE KINASE 55 U/L (29-168); CREATININE SERUM 0.93 MG/DL (0.60-1.30); GFR ESTIMATED > 60; GLUCOSE 110 MG/DL (70-105); POTASSIUM 4.3 MMOL/L (3.6-5.0); SODIUM 140 MMOL/L (135-145); TOTAL PROTEIN 7.7 GM/DL (6.4-8.2)
[2018-11-06 20:37] LABS: BILIRUBIN,URINE NEGATIVE (NEGATIVE); CLARITY,URINE CLEAR; COLOR,URINE YELLOW; GLUCOSE, URINE (UA) NEGATIVE (NEGATIVE); KETONES,URINE 1+ (NEGATIVE); LEUKOCYTE ESTERASE ,URINE 1+ (NEGATIVE); NITRITE,URINE NEGATIVE (NEGATIVE); PH,URINE 5 (5-9); PROTEIN,URINE 1+ (NEGATIVE); UROBILINOGEN,URINE NORMAL (NORMAL)
[2018-11-06] MEDS ORDERED: ceFAZolin INJECTION 1,000 MG in WATER (STERILE) FOR INJECTION 10 ML IV ONE (20:45)
[2018-11-06] MEDS ORDERED: ORPHENADRINE 60 MG/2 ML (NORFLEX) AMP IV ONE (20:45)
[2018-11-06 20:48] LABS: BACTERIA,URINE TRACE /HPF; CALCIUM OXALATE CRYSTALS,UR FEW /LPF; RBC,URINE 0-2 /HPF; RENAL EPITHELIAL CELLS,URINE 0-2 /HPF; WBC,URINE 0-2 /HPF
[2018-11-06 20:49] LABS: AMPHETAMINE SCREEN, URINE NEGATIVE (NEGATIVE); BARBITURATE SCREEN URINE NEGATIVE (NEGATIVE); BENZODIAZEPINES SCREEN URINE NEGATIVE (NEGATIVE); CANNABINOID SCREEN, URINE NEGATIVE (NEGATIVE); COCAINE SCREEN URINE NEGATIVE (NEGATIVE); METHADONE STAT NEGATIVE (NEGATIVE); METHAMPHETAMINE SCREEN URINE S NEGATIVE (NEGATIVE); OPIATE SCREEN URINE NEGATIVE (NEGATIVE); OXYCODONE STAT NEGATIVE (NEGATIVE); PROPOXYPHENE STAT NEGATIVE (NEGATIVE); TRICYCLIC ANTIDEPRESSANTS SCRE NEGATIVE (NEGATIVE)
--- NOTE | 2018-11-06 21:00 | Diagnostic Imaging Report ---
EXAMINATION: Left femur, 2 views. COMPARISON: November 06, 2018 at 2014 hours. HISTORY: 63-year-old female, reduction of left femur fracture. FINDINGS: There is a redemonstrated comminuted displaced fracture of the distal femoral diaphysis. The distal fracture fragment is displaced posteriorly by approximately 3.2 cm. There is no significant override of the fracture fragments. There is significantly less angulation of the fracture site and interval improved bone alignment since the comparison exam. There are areas of abnormal lucency within the soft tissues which may relate to a penetrating type injury. IMPRESSION: Interval improved alignment of the comminuted displaced left distal femoral diaphyseal fracture. Dictated by: Dictated on workstation # [id number]
--- NOTE | 2018-11-06 21:33 | NUR ---
[facility] HERE FOR PT
[2018-11-06 21:40] VITALS: BP 119/69
== END 2018-11-06 21:42 | disposition short-term general hospital (02) ==
LOC: EDUNIT# 20:04 → ER 20:05
DX: S72.402A Unspecified fracture of lower end of left femur, initial encounter for closed fracture (principal); W23.0XXA Caught, crushed, jammed, or pinched between moving objects, initial encounter
CPT/HCPCS: 36415; 51702; 73552; 80053; 80306; 80320; 81000; 82550; 83880; 85025; 86850; 86900; 86901; 90471; 90715; 96374; 96375

== ENCOUNTER 2018-11-10 09:09 | Inpatient (IN) | payer BC ==
[~2018-11-10] VITALS: Ht 157.5 cm; Wt 90.3 kg
[2018-11-10] MEDS ORDERED: HYDR-3816 PO (09:55)
[2018-11-10] MEDS ORDERED: CARV12.53 PO (09:55)
[2018-11-10] MEDS ORDERED: ASPI-983 PO (09:55)
[2018-11-10] MEDS ORDERED: LOSA50TA63 PO (09:55)
[2018-11-10] MEDS ORDERED: FURO40TA4 PO (09:55)
[2018-11-10] MEDS ORDERED: POTA10CA43 PO (09:55)
--- NOTE | 2018-11-10 09:56 | NUR ---
UPDATED THE MED REC TO THE LIST OF MEDICATIONS ORDERED UPON DISCHARGE FROM [facility]. NOTE THE FOLLOWING CHANGES WERE MADE AT THAT DISCHARGE: START TAKING: HYDROCODONE 7.5-325MG 1-2 TAB PO Q4-6H PRN Addendum: 11/10/18 at 1029 by JESSIE HARMON CPhT RECEIVED ANOTHER DISCHARGE MEDICATION LIST FROM [facility] AT THIS TIME THAT ALSO INCLUDED TO START TAKING LOVENOX 0.4ML DAILY. I ADDED IT TO THE MED REC NOW. I WILL UPDATE THE LIST TO WHAT THE PATIENT WAS TAKING AT HOME PRIOR TO DISCHARGE FROM [facility] AT A LATER TIME FOR PROPER DISCHARGE HOME ORDERS. Addendum: 11/11/18 at 0950 by JESSIE HARMON CPhT REMOVED THE TWO NEW MEDICATIONS ORDERED AT DISCHARGE, HYDROCODONE AND LOVENOX. THE LIST IS NOW BACK TO WHAT THE PATIENT WAS TAKING PRIOR TO DISCHARGE FROM [facility].
[2018-11-10] MEDS ORDERED: ENOX40DI13 SQ (10:23)
[2018-11-10 12:30] VITALS: BP 117/81
--- NOTE | 2018-11-10 12:38 | NUR ---
SAMUEL WHITING admitted to room 223-1, with an admitting diagnosis of LEFT OPEN FEMORAL FX, on 11/10/18 from [facility] via PRIVATE VEHICLE, accompanied by FAMILY. SAMUEL WHITING introduced to surroundings, call light, bed controls, phone, TV, temperature control, lights, meal times, smoking policy, visitor policy, side rail policy, bathrooms and showers. Patient Rights given to patient in the handbook. SAMUEL WHTIING verbalizes understanding that [facility] is not responsible for the loss or damage to any personal effects or valuables that are kept in the patient's possession during their hospitalization. The following Patient Care Plans were discussed with the PATIENT: Discharge Planning, PAIN, IMPAIRED MOBILITY, HIGH RISK: INFECTION, HIGH RISK: IMPAIRED SKIN INTEGRITY, and KNOWLEDGE DEFICIT. SAMUEL WHITING verbalizes understanding of Interdisciplinary Patient Education. Patient received Patient Rights Booklet, which includes Privacy Act Statement and Data Collection Information Summary.
--- NOTE | 2018-11-10 13:18 | Occupational Therapy Eval ---
OT Evaluation-General/PLF Medical Diagnosis Admission Date Nov 10, 2018 at 12:25 Medical Diagnosis: IM Nail left femur Onset Date: Nov 06, 2018 Therapy Diagnosis Therapy Diagnosis: Decreased ADL skills Height/Weight Height (Feet): 5 Height (Inches): 2.00 Weight (Pounds): 180 Weight (Ounces): 0.0 Weight Bear Status Weight Bearing Restriction: Weight Bearing/Tolerated Referral Physician: Dr. Medina Referral Reason: Activity Tolerance, Self Care, Evaluation/Treatment, Strengthening/ROM Medical History Additional Medical History CHF Current History Pt. was changing hitch on tractor trailer. It snapped and fx her left femur. Reviewed History: Yes Social History Home: Single Level Current Living Status: Children Entry Into Home: Stairs Without Railing Steps Into Home: 2 ADL-Prior Level of Function Therapy Code Descriptions/Definitions Functional [place] Measure: 0=Not Assessed/NA 4=Minimal Assistance 1=Total Assistance 5=Supervision or Setup 2=Maximal Assistance 6=Modified [place] 3=Moderate Assistance 7=Complete [place]ingo Therapy Quality Codes: 6 Independent with activity with or without an assistive device 5 Patient requires set up or clean up by helper. Patient completes activity by themselves 4 Supervision or touching assist (CGA). [place] provide cues , steadying assist 3 The helper provides less than half the effort to complete the activity 2 The helper provides more than half the effort to complete the activity 1 Dependent. The helper does all the effort to complete an activity 7 Patient refused to complete or attempt activity 9 The patient did not perform the activity before the current illness or injury 88 Not attempted due to Medical conditions or safety concerns Functional Abilities and Goals: Independent: Patient completed the activities by him/herself, with or without an assistive device, with no assistance from a helper. Needed Some Help: Patient needed partial assistance from another person to complete activities. Dependent: A helper completed the activities for the patient. Unknown: Not Applicable: ADL PLOF Comments Pt. was independent with all basic self care skills. 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 Drive Self: Yes OT Current Status Subjective Pt. does not verbalize pain level. Appearance Pt. up in chair. Agrees to OT eval. Mental Status/Objective Patient Orientation: Person, Place, Time, Situation Current Glasses/Contacts: Yes Upper Extremity ROM WFL ADL-Treatment Lower Body Dressing (FIM): 2 Lower Body Dressing (QC): 2 On/Off Footwear (QC): 2 Transfers (B, C, W/C) (FIM): 3 (Sit-stand) Education OT Patient Education: Correct positioning, Progress toward Goal/Update tx plan, Purpose of tx/functional activities, Reviewed precautions, Rehab process, Transfer techniques Teaching Recipient: Patient Teaching Methods: Demonstration, Discussion Response to Teaching: Verbalize Understanding, Return Demonstration OT Short Term Goals Short Term Goals Time Frame: Nov 17, 2018 Eating(FIM): 7 Grooming(FIM): 5 Bathing(FIM): 4 Upper Body Dressing(FIM): 5 Lower Body Dressing(FIM): 4 Toileting(FIM): 4 Transfers (B,C,W/C) (FIM): 4 Toilet/Commode Transfer(FIM): 4 Shower Transfer(FIM): 4 Additional Short Term Goals: 1-Demonstrate ADL Tasks, 2-Verbalize Understanding, 3-ImproveStrength/Lefty 1=Demonstrate adherence to instructed precautions during ADL tasks. 2=Patient will verbalize/demonstrate understanding of assistive devices/modifications for ADL. 3=Patient will improve strength/tolerance for activity to enable patient to perform ADL's. OT Jail Goals Retail Advisor Goals Time Frame: Nov 24, 2018 Eating (FIM): 7 Eating (QC): 6 Groomin Oral Hygiene (QC): 6 Bathing(FIM): 5 Shower/Bathe Self (QC): 5 Upper Body Dressing(FIM): 6 Upper Body Dressing (QC): 6 Lower Body Dressing(FIM): 6 Lower Body Dressing (QC): 6 On/Off Footwear (QC): 6 Toileting(FIM): 6 Toileting Hygiene (QC): 6 Transfers (B,C,W/C) (FIM): 6 Toilet/Commode Transfer(FIM): 6 Toilet/Commode Transfer (QC): 6 Shower Transfer(FIM): 6 Additional Goals: 1-Demonstrate ADL Tasks, 2-Verbalize Understanding, 3- ImproveStrength/Lefty 1=Demonstrate adherence to instructed precautions during ADL tasks. 2=Patient will verbalize/demonstrate understanding of assistive dev ices/modifications for ADL. 3=Patient will improve strength/tolerance for activity to enable patient to perform ADL's. OT Education/Plan Problem List/Assessment Assessment: Decreased Activ Tolerance, Dependent Transfers, Impaired Bed Mobility, Impaired Funct Balance, Impaired I ADL's, Impaired Self-Care Skills Discharge Recommendations Plan/Recommendations: Continue POC Therapy D/C Recommendations: Home w/ Family Support, Occupational Therapy Home Care Equpiment Recommendations-D/C: Hip Kit Treatment Plan/Plan of Care Treatment,Training & Education: Yes Patient would benefit from OT for education, treatment and training to promote independence in ADL's, mobility, safety and/or upper extremity function for ADL's. Plan of Care: ADL Retraining, Functional Mobility, UE Funct Exercise/Act Treatment Duration: Nov 24, 2018 Frequency: At least 5 of 7 days/Wk (IRF) Estimated Hrs Per Day: 1.5 hours per day Agreement: Yes Rehab Potential: Good Time/GCodes Start Time: 12:35 Stop Time: 12:45 Total Time Billed (hr/min): 10 Billed Treatment Time 1, EDIL HAYDEN OT Nov 10, 2018 13:18
--- NOTE | 2018-11-10 13:38 | Consultation-Cardiology ---
HPI-Cardiology Cardiology Consultation Date of Consultation 11/10/18 Date of Admission Time Seen by Provider: 13:33 Indication: History of CHF HPI Patient is a 63 y/o female, history of nonischemic cardiomyopathy, HTN. Transferred from [place] to [facility] after having open femur fracture and undergoing OR last week. Complaining of some dizziness/lightheadedness upon standing. Denies any chest pain, dyspnea, or syncope. Has not taken any blood pressure medications yet today. 63-year-old lady with history of coronary artery disease, mild nonobstructive disease, nonischemic cardiomyopathy, hypertension, sustained an injury to her femur, had surgery. Still having orthostatic hypotension. No chest pain. No palpitation. Home Medications & Allergies Allergies: Coded Allergies: No Known Allergies (Unverified Allergy, Unknown, 02/09/17) Home Medication List Reviewed: Yes [id number] Hx Patient Social History Alcohol Use: Denies Use Smoking Status: Never a Smoker Recent Hopitalizations: No Past Medical History CHF, MARIO, HTN Family Medical History Significant Family History: No Pertinent Family Hx Review of Systems-General Review of Systems Constitutional: see HPI; No chills, No diaphoresis; dizziness; No fever, No malaise EENTM: see HPI; No blurred vision, No double vision, No vision loss Respiratory: see HPI; No cough, No dyspnea on exertion Cardiovascular: see HPI; No chest pain, No edema, No Hx of Intervention, No palpitations, No vascular heart diseas Gastrointestinal: see HPI; No abdominal pain, No constipation, No diarrhea Genitourinary: see HPI; No dysuria, No frequency, No hematuria Musculoskeletal: see HPI; No back pain, No joint pain Skin: see HPI; No lesions, No lumps Psychiatric/Neurological: See HPI; Denies Anxiety, Denies Depressed Physical Exam Physical Exam Vital Signs Capillary Refill : Height, Weight, BMI Height: 5'2.00" Weight: 180lbs. 0.0oz. [id number]; 28.12 BMI Method:Stated General Appearance: No Apparent Distress, WD/WN HEENT: PERRL/EOMI, Normal ENT Inspection Neck: Non Tender, Supple Respiratory: Chest Non Tender, Lungs Clear, Normal Breath Sounds, No Accessory Muscle Use, No Respiratory Distress Cardiovascular: Regular Rate, Rhythm, No Edema, No Gallop, No JVD, No Murmur Gastrointestinal: Non Tender, Soft Rectal: Deferred Back: No CVA Tenderness Extremity: Non Tender, No Calf Tenderness, Pedal Edema Neurologic/Psychiatric: Alert, Oriented x3, clerical assistant II-XII Norm as Tested Skin: Normal Color, Warm/Dry Lymphatic: No Adenopathy A/P-Cardiology Admission Diagnosis Femur fracture CHF Dizziness HTN Assessment/Plan open femur fracture occurred 11/06/18, s/p repair. Recovering slowly Dizziness/lightheadedness upon standing, I will obtain orthostatic BP's, adjust medications as needed. Instructed to increase fluids. CHF, Dilated cardiomyopathy of undetermined etiology. Echo of 01/28/17 is reported have shown diff hypokinesia of the LV, LVEF 30-35%, dilated LA, mod to severe MR, AoV sclerosis w/o stenosis, PASP approx 25 mmhg. Echocardiogram of July 05, 2018 showed 40-45%. Mild to mod hyokinesis of the interventricular septum. Grade 1 diastolic dysfunction. LA dilated. Mild MR. PASP approx 25- 30mmHg. Maintained on Coreg 12.5mg BID and Losartan 50mg daily. Continue on current medications. History of intolerance to HELENA-I secondary to cough. Obesity with BMI approx 34 Quit smoking in 1984 GERD Sleep apnea - uses CPAP H/O Vertigo Thank you for allowing us to participate in the management of Ms. Fernandez. This is Missy Barrera PA-C, as a scribe for Dr. Erazo. Patient was seen and evaluated with Missy, examined the patient and interviewed the patient, discussed the management plan agree with the current scribed note. In summary 63-year-old lady admitted with femur fracture status post surgical repair, still having orthostatic dizziness and lightheadedness. Continue to monitor blood pressure at this time, restart medication on transfer after reconsideration from [facility], patient has been following with Dr. Sandoval. Continue to monitor. I made few modifications to the note using Italic font MISSY CONTRERAS Nov 10, 2018 13:38 NIDHI ERAZO MD Nov 10, 2018 14:29
--- NOTE | 2018-11-10 13:56 | Physical Therapy Evaluation ---
PT Evaluation-General Medical Diagnosis Admission Date Nov 10, 2018 at 12:25 Medical Diagnosis: IM Nail left femur Onset Date: Nov 06, 2018 Therapy Diagnosis Therapy Diagnosis: abnormal gait Height/Weight Height (Feet): 5 Height (Inches): 2.00 Weight (Pounds): 180 Weight (Ounces): 0.0 Precautions Precautions/Isolations: Standard Precautions Weight Bear Status Right Lower Extremity: Right Full Weight Bearing Left Lower Extremity: Left Weight Bearing/Tolerated Referral Physician: Dr. Medina Reason for Referral: Evaluation/Treatment Medical History Additional Medical History CHF Current History Pt sustained an open femur fx on 11/06/18, she was pinned between a trailer hitch and a bumper. It was repaired with an IM kristie. She was tranferred from [place] to this facility for skilled therapy rehabilitation. Reviewed History: Yes Social History Home: Single Level Current Living Status: Children Entry Into Home: Stairs Without Railing PT Steps Into Home: 2 Prior/Core FIM Prior Level of Function Therapy Code Descriptions/Definitions Functional [place] Measure: 0=Not Assessed/NA 4=Minimal Assistance 1=Total Assistance 5=Supervision or Setup 2=Maximal Assistance 6=Modified [place] 3=Moderate Assistance 7=Complete [place] Therapy Quality Codes: 6 Independent with activity with or without an assistive device 5 Patient requires set up or clean up by helper. Patient completes activity by themselves 4 Supervision or touching assist (CGA). [place] provide cues , steadying assist 3 The helper provides less than half the effort to complete the activity 2 The helper provides more than half the effort to complete the activity 1 Dependent. The helper does all the effort to complete an activity 7 Patient refused to complete or attempt activity 9 The patient did not perform the activity before the current illness or injury 88 Not attempted due to Medical conditions or safety concerns Functional Abilities and Goals: Independent: Patient completed the activities by him/herself, with or without an assistive device, with no assistance from a helper. Needed Some Help: Patient needed partial assistance from another person to complete activities. Dependent: A helper completed the activities for the patient. 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 Independent and active PLOF. PT Evaluation-Current Subjective Agrees to PT. Reports she has had some issues with orthostatic hypotension. Expresses concern when transitioning to a stand. Objective Patient Orientation: Person, Place, Time, Situation Problem Solving: Good ROM/Strength ROM Lower Extremities WFL; left LE moves "stiffly"through ROM Strenght Lower Extremities right LE Strength is 5/5 Left LE strength is grossly 4-/5 Integumentary/Posture Integumentary Intact Bowel Incontinence: No Bladder Incontinence: No Posture normal and symmetrical Neuromuscular (Tone, Coordination, Reflexes) intact and without noted deficit Sensory Vision: Wears Glasses Hearing: Functional Hand Dominance: Right Sensation Right Lower Extremit: Intact Sensation Left Lower Extremity: Intact Transfers Therapy Code Descriptions/Definitions Functional [place] Measure: 0=Not Assessed/NA 4=Minimal Assistance 1=Total Assistance 5=Supervision or Setup 2=Maximal Assistance 6=Modified [place] 3=Moderate Assistance 7=Complete [place] Therapy Quality Codes: 6 Independent with activity with or without an assistive device 5 Patient requires set up or clean up by helper. Patient completes activity by themselves 4 Supervision or touching assist (CGA). [place] provide cues , steadying assist 3 The helper provides less than half the effort to complete the activity 2 The helper provides more than half the effort to complete the activity 1 Dependent. The helper does all the effort to complete an activity 7 Patient refused to complete or attempt activity 9 The patient did not perform the activity before the current illness or injury 88 Not attempted due to Medical conditions or safety concerns Transfers (B, C, W/C) (FIM): 3 Scootin Roll Left to Right (QC): 4 Supine to/from Sit: 3 (assist with both legs; HOB elevated) Sit to/from Stand: 3 (mod assist with come to a stand) Sit to Lying (QC): 3 Lying to Sitting/Side of Bed(Q: 4 (assist to unweight left LE) Sit to Stand (QC): 3 (mod assist with skilled cues for hand placement) Chair/Kqc-ha-Vqzyv Xfer(QC): 4 Car Transfer (QC): 3 pt is guarded when moving her left LE; seems stiff and difficult to move Gait Does the Patient Walk?: Yes Mode of Locomotion: Walk Anticipated Mode of Locomotion: Walk Gait (FIM): 2 Distance (FIM): 1=up to 49 ft Walk 10 feet (QC): 4 Walk 50 ft with 2 Turns(QC): 88 (pt unable to walk this distance) Walk 150 ft (QC): 88 Walking 10ft/uneven surface-QC: 4 Distance: 20 ft x 2 Gait Level of Assist: 4 (close CGA for safety) Gait Assistive Device: FWW Comments/Gait Description slow gait with short steps, guarded with WB on the left LE; decreased speed and decreased foot clearance. Unsafe to ambulate without assist and distance is limited. Wheelchair Training Does the Pt Use a Wheelchair?: No Stairs Stairs (FIM): 1 #of Steps: 1 Level of Assist: 3 1 Step (curb) (QC): 3 (mod assist to step up and to control to lower) 4 Steps (QC): 88 Assistive Device: Walker 12 Steps (QC): 88 Pt required assist to step up safely as well as step down. Balance Sitting Static: Fair Sitting Dynamic: Fair (impaired with functional activities) Standing Static: Fair Standing Dynamic: Fair Picking up an Object (QC): 88 Treatment Functional gait and tranfer training performed for sequencing, task segmentation and completion of task for transfers and gait; skilled cues provided on correct technique as well as assist with the transfer and with ambulation. Co treat with OT performed for parts of the treatment. Skill of 2 clinician required due to the extensive need for care. OT addressed self care tasks such as bathing and dressing as PT addressed functinal balance in sitting and standing; transitional movements such as sit to stand as she was performing self care or transitioning into the shower. OT addressed the skills required to bathe or dress as PT addressed sequencing and hand placement as well as balance while performing the task. Multiple sit to stand transfers performed, static and dynamic balance in sitting and standing addressed and transitions from room to/from bathroom performed. Addressed toileting transfers and technique as welll Assessment/Needs Pt presents post repair of a left femur fracture with noted decreased functional strength and balance that impairs her ability to safely and effectively perform bed mobility, sit to stand or gait without extensive assist. She is unable to care for herself at this time. She will benefit from skilled PT to address her mobility to allow her to discharge home at a mod indep level. Rehab Potential: Good PT Short Term Goals Short Term Goals Time Frame: Nov 17, 2018 Transfers (B,C,W/C) (FIM): 4 Gait (FIM): 4 PT Prison Goals Prison Goals PT Ems Director Goals Time Frame: Nov 24, 2018 Transfers (B,C,W/C) (FIM): 7 Sit to Lying (QC): 6 Lying-Sitting on Side/Bed(QC): 6 Sit to Stand (QC): 6 Roll Left to Right (QC): 6 Chair/Phc-ad-Okitk Xfer(QC): 6 Car Transfer (QC): 6 Does the Patient Walk: Yes Gait (FIM): 6 Gait distance (FIM): 3=150 ft Walk 10 feet (QC): 6 Walk 10ft-Uneven Surface(QC): 6 Walk 50ft with 2 Turns (QC): 6 Walk 150 ft (QC): 6 Gait Assistive Device: FWW Does the Pt use WC or Scooter?: No Stairs (FIM): 5 (household) # of Steps: 4 1 Step (curb) (QC): 6 4 Steps (QC): 6 12 Steps (QC): 88 Stairs Level Of Assist: 6 Picking up an Object (QC): 88 PT Plan Problem List Problem List: Activity Tolerance, Functional Strength, Safety, Balance, Gait, Transfer, Bed Mobility, ROM Treatment/Plan Treatment Plan: Continue Plan of Care Treatment Plan: Bed Mobility, Education, Functional Activity Lefty, Functional Strength, Group Therapy, Gait, Safety, Therapeutic Exercise, Transfers Treatment Duration: Nov 24, 2018 Frequency: At least 5 of 7 days/Wk (IRF) Estimated Hrs Per Day: 1.5 hours per day Patient and/or Family Agrees t: Yes Safety Risks/Education Patient Education: Gait Training, Transfer Techniques Teaching Recipient: Patient Teaching Methods: Demonstration, Discussion Response to Teaching: Reinforcement Needed Discharge Recommendations Therapy D/C Recommendations: Physical Therapy Home Care Equpiment Recommendations-D/C: Front Wheeled Walker Time/GCodes Time In: 1225 Time Out: 1235 ([id number] co [id number] co treat) Total Billed Treatment Time: 80 Total Billed Treatment visit x 3 EVM 10 FA 25 FA 45 DAVINA GIBBS PT Nov 10, 2018 13:56
[2018-11-10 14:15] VITALS: BP 126/71
[2018-11-10 14:16] VITALS: BP 119/77
[2018-11-10 14:17] VITALS: BP 110/76
[2018-11-10] MEDS ORDERED: ENOXAPARIN 40 MG/0.4 ML (LOVENOX) SYR SC SCH (15:00)
--- NOTE | 2018-11-10 15:16 | Occupational Ther Daily Note ---
OT Current Status-Daily Note Subjective Pt alert, sitting in w/c. Pt agrees to therapy. Pt c/o pain, nrsg working on getting pt pain pills. Mental Status/Objective Patient Orientation: Person, Place, Time, Situation Therapy Code Descriptions/Definitions Functional [place] Measure: 0=Not Assessed/NA 4=Minimal Assistance 1=Total Assistance 5=Supervision or Setup 2=Maximal Assistance 6=Modified [place] 3=Moderate Assistance 7=Complete [place] ADL-Treatment Co-treat with PT, skills of 2 clinicians required for positioning body properly for functional transfers and ambulation, decreased mobility due to increased pain and positioning body during tom care. Pt able to set own self up to eat and uses regular utensils to eat. Mod A for sit <--> stand and supine <--> EOB. Assist x2 to scoot up in bed, pt able to roll with min A using bed rails. Mod A for toilet transfer using FWW and grabbars. Max A for toileting, assist to manipulate clothing and pt unable to reach buttocks to cleanse self after BM. Mod A using FWW, grabbars and shower bench to transfer into shower. Min A for bathing, assist to bathe and dry L lower leg and buttocks. Max A for lower body dressing, AE placed in room to use for lower body dressing. Pt wanted to don hospital gown, gown was tied at neck to pt could don gown as a shirt, completed by self. Pt stated that she has used sock aide to don socks and irrigation system operator to don lower body clothing at previous hospital. Pt able to brush hair though due to increase pain and decreased activity tolerance pt declined to complete grooming at this time. After therapy, pt lying in bed with call light/phone in reach. All needs met in room. Therapy Code Descriptions/Definitions Functional [place] Measure: 0=Not Assessed/NA 4=Minimal Assistance 1=Total Assistance 5=Supervision or Setup 2=Maximal Assistance 6=Modified [place] 3=Moderate Assistance 7=Complete [place] Therapy Quality Codes: 6 Independent with activity with or without an assistive device 5 Patient requires set up or clean up by helper. Patient completes activity by themselves 4 Supervision or touching assist (CGA). [place] provide cues , steadying assist 3 The helper provides less than half the effort to complete the activity 2 The helper provides more than half the effort to complete the activity 1 Dependent. The helper does all the effort to complete an activity 7 Patient refused to complete or attempt activity 9 The patient did not perform the activity before the current illness or injury 88 Not attempted due to Medical conditions or safety concerns Eating (FIM): 7 Eating (QC): 6 Bathing (FIM): 4 Bathing Location: L Arm, R Arm, L Upper Leg, R Upper Leg, R Lower Leg (including foot), Chest, Abdomen, Perineal Area Shower/Bathe Self (QC): 3 Lower Body Dressing (FIM): 2 Lower Body Dressing (QC): 2 On/Off Footwear (QC): 2 Toileting (FIM): 2 Toileting Hygiene (QC): 2 Transfers (B, C, W/C) (FIM): 3 Toilet/Commode Transfer (FIM): 3 Toilet Transfer (QC): 3 Shower Transfer(FIM): 3 OT Short Term Goals Short Term Goals Time Frame: Nov 17, 2018 Eating(FIM): 7 Grooming(FIM): 5 Bathing(FIM): 4 Upper Body Dressing(FIM): 5 Lower Body Dressing(FIM): 4 Toileting(FIM): 4 Transfers (B,C,W/C) (FIM): 4 Toilet/Commode Transfer(FIM): 4 Shower Transfer(FIM): 4 Additional Short Term Goals: 1-Demonstrate ADL Tasks, 2-Verbalize Understanding, 3-ImproveStrength/Lefty 1=Demonstrate adherence to instructed precautions during ADL tasks. 2=Patient will verbalize/demonstrate understanding of assistive devices/modifications for ADL. 3=Patient will improve strength/tolerance for activity to enable patient to perform ADL's. OT Half-Way Goals Plant Technician/Control Room Operator Goals Time Frame: Nov 24, 2018 Eating (FIM): 7 Eating (QC): 6 Groomin Oral Hygiene (QC): 6 Bathing(FIM): 5 Shower/Bathe Self (QC): 5 Upper Body Dressing(FIM): 6 Upper Body Dressing (QC): 6 Lower Body Dressing(FIM): 6 Lower Body Dressing (QC): 6 On/Off Footwear (QC): 6 Toileting(FIM): 6 Toileting Hygiene (QC): 6 Transfers (B,C,W/C) (FIM): 6 Toilet/Commode Transfer(FIM): 6 Toilet/Commode Transfer (QC): 6 Shower Transfer(FIM): 6 Additional Goals: 1-Demonstrate ADL Tasks, 2-Verbalize Understanding, 3- ImproveStrength/Lefty 1=Demonstrate adherence to instructed precautions during ADL tasks. 2=Patient will verbalize/demonstrate understanding of assistive devices/modifications for ADL. 3=Patient will improve strength/tolerance for activity to enable patient to perform ADL's. OT Education/Plan Problem List/Assessment Assessment: Decreased Activ Tolerance, Decreased UE Strength, Impaired Bed Mobility, Impaired Coordination, Impaired Funct Balance, Impaired Self-Care Skills, Restricted Funct UE ROM Discharge Recommendations Plan/Recommendations: Continue POC Treatment Plan/Plan of Care Patient would benefit from OT for education, treatment and training to promote independence in ADL's, mobility, safety and/or upper extremity function for ADL's. Plan of Care: ADL Retraining, Functional Mobility, UE Funct Exercise/Act Treatment Duration: Nov 24, 2018 Frequency: At least 5 of 7 days/Wk (IRF) Estimated Hrs Per Day: 1.5 hours per day Agreement: Yes Rehab Potential: Good Time/GCodes Start Time: 13:25 Stop Time: 15:00 Total Time Billed (hr/min): 80 Billed Treatment Time Individual treatment: [id number], [id number] (35 min) Co-treatment: [id number], [id number] (45 min) 1 visit-ADL 5 (80 min) DAVINA RAMIREZ Nov 10, 2018 15:16
[2018-11-10] MEDS ORDERED: DOCUSATE SODIUM 100 MG (COLACE) CAP PO PRN (15:30)
[2018-11-10] MEDS ORDERED: LOPERAMIDE 2 MG (IMODIUM) TABLET PO PRN (15:30)
[2018-11-10] MEDS ORDERED: diphenhydrAMINE 25 MG TAB (BENADRYL) PO PRN (15:30)
[2018-11-10] MEDS ORDERED: CALCIUM CARBONATE 500 MG (TUMS) TAB.CHEW PO PRN (15:30)
[2018-11-10] MEDS ORDERED: ALPRAZolam 0.25 MG (XANAX) TAB PO PRN (15:30)
[2018-11-10] MEDS ORDERED: ONDANSETRON 4 MG (ZOFRAN) ORAL DISSOLVE TAB PO PRN (15:30)
[2018-11-10 15:34] VITALS: BP 110/76
--- NOTE | 2018-11-10 15:38 | Progress Note - Hospitalist ---
[facility] 11/10/18 1538: Progress Note CC: Fractured Left Femur HPI: Diane Fernandez, Preferred name Arleen, is a 63 yo woman who was transferred from [facility] after sustaining a fractured left femur. She was changing a tire Wednesday evening when the trailer fell off the hanna and pinned her between the truck. The truck had to be moved to remove her from the situation. She had little pain, but now with increasing activities she states the pain is now a 5/1 0. She does complain of lightheartedness/dizziness when moving from a supine to seated position or seated to standing position. She asked to be transferred to [facility] so she can be close to home. PMH: Acute Pancreatitis (Hospitalized for 6 days), CHF PSH: Cholecystectomy (due to gallstones and pancreatitis), and Tonsillectomy. ALL: NKA, Meds: Aspirin (81 mg daily), Carvedilol (125 mg BID), Furosemide (40 mg daily), valsartan (1 tablet BID), Spironolactone (25 mg tablet daily). Occasional Tums, Occasional OTC Medication for Acid reflux, Occasional OTC for Allergies SH: 1-2 beers a month, no recreation drugs, quit smoking 35 yrs ago. Works at the [employer] for 19 yrs in [place], [place]. FH: Father (: Non - Hodgkin Lymphoma), Mother ( at 89: significant for hypothyroidism) ROS: + tinnitus, - SOB, chest pain, palpitations, fevers, chills, numbness or tingling in extremities, changes in vision, hot or cold intolerance. Exam: Vitals:Temp 99.8, HR 99,, RR 14, BP 126/71 supine, 110/76 standing, PO2 96 General: A&Ox3, obese, no distress, Pleasant mood Skin: slight ecchymosis over the left femur. Heart: RRR, no murmurs Lungs: CTAB, no rhonchi, rales or wheezes. Abdomen: Bowel sounds Within Normal Limits, not TTP, no gaurding, no hepat osplenomegaly, Vascular: 2/4 radial and dorsalis pedis pulse bilaterally. Neuro: sensation intact bilaterally over the LE. Labs: 11/06 BUN 26, Glucose 110, Anion Gap 15, Hgb 10.6, MCV 71 Imaging: X-ray significant for left distal fracture of femur with soft tissue injuries. laborer vineyard showed Dilated Cardiomyopathy. Assessment: Left femur fracture Ligament strain in left knee Deep femoral artery Vascular compromise Infection Dilated Cardiomyopathy Microcytic anemia Medication induced RTA Orthostatic hypotension BPPV Pre-renal azotemia due to low cardiac output stress induced hyperglycemia Acid reflux Seasonal allergies Plan: Dressing and wound care ABG and BMP for RTA work-up CBC Oral Iron supplementation TID Antibiotics Glucometer testing Ultrasound of vasculature Review medication Assistance with Standing OMM for BPPV YUDI SIERRA DO 11/10/18 2100: Supervisory-Addendum Brief Verification & Attestation Time: Verification & Attestat.: 13:00 Participated in pt care: history, MDM, physical Personally performed: exam, history, MDM, supervision of care Care discussed with: Medical Student Procedures: n/a Results interpretation: Verified all documentation Verification and Attestation of Medical Student E/M Service A medical student performed and documented this service in my presence. I reviewed and verified all information documented by the medical student and made modifications to such information, when appropriate. I personally performed the physical exam and medical decision making. Yudi Sierra, Nov 10, 2018,21:01 ALEXEI [facility] Nov 10, 2018 15:38 YUDI SIERRA DO Nov 10, 2018 21:00
--- NOTE | 2018-11-10 16:20 | NUR ---
Pt is Religious but has not been active for 20 years. Visual Basic .Net Developer offered prayer.
--- NOTE | 2018-11-10 16:20 | ST Cognitive Linguistic Eval ---
Speech Evaluation-General Medical Diagnosis IM Nail left femur Onset Date: Nov 06, 2018 Therapy Diagnosis Therapy Diagnosis: Cognitive-communication Precautions Precautions: Fall Precautions/Isolations: Fall Prevention, Standard Precautions Referral Referring Physician: Dr. Medina Reason for Referral: Evaluation/Treatment Medical History Pertinent Medical History: Heart Failure CHF, Diverticulitis Current History IM Nail left femur Reviewed History: Yes Social History Home: Single Level Current Living Status: Children Speech PLF-Current Status Prior Level of Function Patient lives with her grown children. She is still employed with the [employer]. Prior to the accident she was independent for her daily needs. Subjective The patient was pleasant and cooperative with the cognitive evaluation. Language Eval: Auditory Comprehends Simple Yes/No Ques: Functional Indent/Objects Multiple Qureshi: Functional Ident/Pics in Multiple Qureshi: Functional Follows 1-Step Commands: Functional Follows Complex Directions: Functional Follows General Conversations: Functional Language Eval: Verbal Language Completes Spontaneous Greeting: Functional Produces Auto, Serial Info: Functional Imitates Simple Words/Phrases: Functional Word Finding: Functional Requests Basic Needs: Functional States Basic Personal Info: Functional Expresses Complex Ideas: Functional Cognitive Patient Orientation Patient is oriented to all concepts Objective Cognitive Domain Attention: WNL Memory: WNL Problem Solving: Functional Executive Functions: WNL Visuospatial Skills: WNL Composite Severity Rating: WNL Clock Drawing Severity Rating: WNL Score: Normal range Range: 30/30 Objective Formal/Standardized Tests [facility] Mental Status ([facility]) Results 30/30 within the normal range Oral Motor/Speech Production Within Functional Limits Impression The patient is a very pleasant 63 year old female who was admitted to the ARU from a [facility]. She had an accident which resulted in a femur fracture. She had surgery and was transferred to our ARU for skilled therapy in order to safely return home. She was given the SLUMS with a score of 30/30 which falls in the normal range. The patient does not require skilled ST services at this time. Communication/Social Cognition Comprehension: 7 Expression: 7 Social Interaction: 7 Problem Solvin Memory: 7 Speech Patient Assess Expression of Ideas/Wants: Expression (4) Understanding Verbal Content: Understands (4) Brief Interview-Mental Status: Yes Repetition of Three Words: Three (3) Temporal Orientation: Year: Correct (3) Temporal Orientation: Month: Accurate within 5 days(2) Temporal Orientation: Day: Correct (1) Recall : Wear to say "Sock": Yes, no cue required (2) Recall : Color: Yes, no cue required (2) Recall : Bed: Yes, no cue required (2) Add-Enter 99 if pt cannot comp: 99 Memory/Recall Ability: Location of own room, Staff names and faces, That he or she is in a hsp/hsp unit Speech-Plan Patient/Family Goals Patient/Family Goals: The patient plans on returning home where she lives with her grown children post rehab. Treatment Plan Speech Therapy Treatment Plan: Discontinue ST The patient does not require skilled ST at this time. Treatment Duration: Nov 10, 2018 Frequency: 1 time per week Estimated Hrs Per Day: .25 hour per day Rehab Potential: Good Barriers to Learning: None identified Pt/Family Agrees to Plan: Yes Safety Risks/Education Teaching Recipient: Patient Teaching Methods: Discussion Response to Teaching: Verbalize Understanding Education Topics Provided: Safety within her room Time Speech Therapy Time In: 13:10 Speech Therapy Time Out: 13:25 Total Billed Time: 15 Billed Treatment Time 1, LILLI Mejia Nov 10, 2018 16:20
[2018-11-10 16:23] VITALS: BP 117/73
[2018-11-10] MEDS: KCL 10 MEQ TAB (MICRO K) PO SCH ×2 (16:27→16:29)
[2018-11-10] MEDS: ACETAMINOPHEN 500 MG TAB (TYLENOL) PO PRN ×2 (16:28→21:54)
--- NOTE | 2018-11-10 16:30 | NUR ---
COMPLAIN HEADACHE AND MEDICATED WITH TYLENOL. SEE ORTHOSTATIC BP INTERVENTION. THESE VITALS WERE REPORTED TO ISAAC SEATER ASSEMBLER. VOICE IS CROAKY. STATES "IT GETS THIS WAY WHEN I'M SICK".
--- NOTE | 2018-11-10 21:07 | PM&R H&P / Post Admit Assess ---
History of Present Illness HPI/Chief Complaint Chief complaint: Debility following open left femur fracture History of present illness: This is a 63-year-old white female clinic patient of Dr. Hurt at [facility] who presents to the inpatient rehab unit following an open left femur fracture when she was trying to put the camper on the trailer hitch when she became pinned in between the camper and the truck and sustained the injury. She had an uncomplicated repair at [facility] and now she presents for recovery in order to regain independence and return living at home and returning to work at the [employer] office in [facility]. She quit smoking many years ago and she sees cardiology Dr. Sandoval for nonischemic dilated cardiomyopathy of uncertain etiology and was at 10% on echocardiogram it is improved to 45% on the most recent echo July 2018. She also has a history of acute pancreatitis due to gallbladder disease status post cholecystectomy and occasional GERD. I reviewed labs from [facility] and I have ordered repeat tomorrow and she reports that her bowels are moving very well after multiple laxatives given prior to discharge at [facility]. She reports pain is tolerable takes hydrocodone and Tylenol with good results. Prior level of functioning was completely independent without the use of assistive devices and completely independent with ADLs. Barriers to returning home will include the need to ambulate at least with a walker to get around the house and be able to regain the ability to shower and perform activities of daily living in order to return home. She does have a recent onset of orthostatic hypotension and because of that I will provide a slower paced rehab process with 17/10 in order to assure she can be successful in this unit. I have consulted Dr. Erazo on-call for Dr. Sandoval and his help is much appreciated. Source: patient Exam Limitations: no limitations Date Seen 11/10/18 Time Seen by a Provider: 13:00 Attending Physician Yudi Sierra DO PCP Shayla Hurt MD Referring Physician Date of Admission Nov 10, 2018 at 12:25 Home Medications & Allergies Home Medications Reviewed patient Home Medication Reconciliation performed by pharmacy medication reconciliations manufacturing quality technician and/or nursing. Patients Allergies have been reviewed. Allergies Allergies Coded Allergies No Known Allergies (Unverified Allergy, Unknown, 02/09/17) Past Dynmyvs-Urzagj-Sqqmvf Hx Past Med/Social Hx: Reviewed Nursing Past Med/Soc Hx, Reviewed and Corrections made Patient Social History Employed/Student: employed Alcohol Use: Denies Use Smoking Status: Former Smoker Recent Foreign Travel: No Contact w/other who traveled: No Recent Hopitalizations: No Recent Infectious Disease Expo: No Past Medical History Surgeries: Adenoidectomy, Gallbladder, Tonsillectomy Currently Using CPAP: Yes Cardiac: Cardiomyopathy, Hypertension Gastrointestinal: Gastroesophageal Reflux, Pancreatitis Musculoskeletal: Arthritis History of Blood Disorders: No Family History No Pertinent Family Hx Review of Systems Constitutional: see HPI, weakness EENTM: no symptoms reported Respiratory: no symptoms reported Cardiovascular: no symptoms reported Gastrointestinal: no symptoms reported Genitourinary: no symptoms reported Musculoskeletal: back pain, joint pain Skin: no symptoms reported Psychiatric/Neurological: No Symptoms Reported All Other Systems Reviewed Negative Unless Noted: Yes Physical Exam Exam Vital Signs Vital Signs Date Time Temp Pulse Resp B/P (MAP) Pulse Ox O2 Delivery O2 Flow Rate FiO2 11/10/18 17:33 Room Air 11/10/18 16:23 99.5 86 18 117/73 (88) 97 Capillary Refill : Less Than 3 Seconds General Appearance: No Apparent Distress, WD/WN, Chronically ill HEENT: PERRL/EOMI, Normal ENT Inspection Neck: Full Range of Motion, Normal Inspection, Non Tender, Supple Respiratory: Chest Non Tender, Lungs Clear, Normal Breath Sounds, No Accessory Muscle Use, No Respiratory Distress Cardiovascular: Regular Rate, Rhythm, No Gallop, No JVD, No Murmur Gastrointestinal: Normal Bowel Sounds, Non Tender, Soft Rectal: Deferred Back: No CVA Tenderness Extremity: Normal Capillary Refill, Normal Inspection, Non Tender, No Calf Tenderness, Pedal Edema, Other (limited ROM left leg) Neurologic/Psychiatric: Alert, Oriented x3, No Motor/Sensory Deficits, Normal Mood/Affect, chief deputy II-XII Norm as Tested, Motor Weakness (left leg) Skin: Normal Color, Warm/Dry Lymphatic: No Adenopathy Results Results/Procedures Labs Patient resulted labs reviewed. Assessment/Plan Assessment and Plan Assess & Plan/Chief Complaint Assessment: Left femur fracture open type s/p repair Ligament strain in left knee with left knee pain and restricted ROM Deep femoral artery vascular compromise Dilated Cardiomyopathy nonischemic type Dr Sandoval follows Microcytic anemia Medication induced RTA Orthostatic hypotension BPPV Pre-renal azotemia due to low cardiac output Stress induced hyperglycemia Acid reflux Seasonal allergies Plan: Dressing and wound care ABG and BMP for RTA work-up if worsens CBC CMP in am Oral Iron supplementation TID Antibiotics Glucometer testing Ultrasound of vasculature if atypical symptoms occur Review medication Assistance with Standing OMM for BPPV (1) Femur fracture, left Status: Acute (2) GERD without esophagitis Status: Chronic (3) History of pancreatitis Status: Chronic (4) Postoperative anemia Status: Acute (5) DVT prophylaxis Status: Acute (6) Hypotension Status: Acute Qualifiers: Hypotension type: orthostatic hypotension Qualified Codes: I95.1 - Orthostatic hypotension (7) Orthostasis Status: Acute (8) Dilated cardiomyopathy Status: Chronic Post Admission Physician Asses Date seen by provider: Nov 10, 2018 Time seen by provider: 13:00 Admisison Dx: (1) Femur fracture The preadmission screen agrees with the post admission assessment that the patient is a good candidate for inpatient rehabilitation. The patient will have a comprehensive program of inpatient rehabilitation with a goal of maximizing level of functional independence prior to discharge home with family. The patient will have PT/OT ninety minutes per day, each discipline, five days a week for gait, strengthening, conditioning, balance, ADLs, any patient/family/caregiver training as necessary. Speech therapy to do cognitive assessment and treat as indicated. Rehabilitation nursing to assist with bowel, bladder, skin, wound care, medication administration, pain management. Loader Helper Sorting Yard to assist with discharge planning, community reentry. SCD's for DVT prophylaxis. She appears to be well motivated to participate in three hours of therapy a day. She should be able to tolerate three hours of therapy a day from a medical richelle dpoint. She should benefit from the three hours of therapy a day. She has a reasonable discharge plan, reasonable discharge rehabilitation goals and a supportive family. She has various comorbidities that need to be closely monitored with medications and treatments adjusted on a daily basis as needed. These include: see list Barriers to discharge for this patient who had been independent prior to this are for her to be modified independent to supervision for ADLs and mobility skills prior to discharge home with family, so as to lessen the burden of the caregivers. Risks for this patient include: 1. Fall 2. Fracture 3. DVT 4. Pulmonary embolism 5. Wound infection 6. Skin breakdown 7. Contractures 8. Poorly controlled pain 9. Urinary retention 10. UTI 11. Respiratory infection 12. Aspiration Estimated Length of Stay: 14 days Prognosis: Rehab prognosis appears good for goal of discharge home with family modified independent to supervision for ADLs and mobility skills. YUDI SIERRA DO Nov 10, 2018 21:07
--- NOTE | 2018-11-10 21:48 | NUR ---
Late note (948p)-AIR DEFENSE ARTILLERY SENIOR SERGEANT met with patient and daughter, Idalmis to complete initial assessment. Patient was alert and oriented and agreeable to assessment. Patient admitted to ARU from [facility] for rehabilitation following a left open femoral fracture. Patient's leg was caught between a trailer hitch and truck causing the fracture. Prior to current hospitalization patient and adult children resided in a one level home in [place], [place]. The home has 3 steps at the entrance without railing. 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 Patient intends to return to work when able. Patient identifies children, Idalmis at [phone] and Aleksey at [phone], as primary contacts. Both work pet ambassador days, but are able to assist in the evenings as needed. PCP identified as Dr. Shayla Hurt, stock clerk self service store as Dr. Sandoval and ENT as Dr. Castillo of [place]. Patient is scheduled for an appointment with Dr. Castillo at the end of November for tinnitus. insurance verified as [employer] through patient's employer with weekly clinical updates required. She has active prescription coverage and utilizes [facility] for local pharmacy needs.AIR DEFENSE ARTILLERY SENIOR SERGEANT reviewed typical ARU length of stay and weekly team conferences. Patient expresses no questions or concerns at this time. AIR DEFENSE ARTILLERY SENIOR SERGEANT will continue to follow.
[2018-11-10] MEDS: POLYETHYLENE GLYCOL 17 GM (MIRALAX) PACK PO SCH (21:53)
[2018-11-10] MEDS: CARVEDILOL 12.5 MG (COREG) TABLET PO SCH (21:53)
[2018-11-10] MEDS: SENNA W/DOCUSATE (SENOKOT S) TABLET PO SCH (21:55)
--- OUTSIDE RECORDS SUMMARY | 2018-11-10 23:57 | XMS REPORT | Continuity of Care Document ---
Author Organization Unknown Address Unknown Phone Unavailable Allergies Active Description Code Type Severity Reaction Onset Reported/Identified Relationship to Patient Clinical Status Yes No Known Allergies [id number] Drug Allergy Unknown N/A 02/09/2017 Medications There [...] MASS INDEX (BMI) 33.0-33.9, ADULT 02/10/2017 IGNACIO CAN MD, FACC, FACP CCDS Ot Z79.82 GTA (CURRENT) USE OF ASPIRIN 02/10/2017 IGNACIO CAN MD, FACCP CCDS Ot Z79.899 OTHER GTA (CURRENT) DRUG THERAPY 02/10/2017 IGNACIO CAN MD, FACCP CCDS Ot Z87.891 PERSONAL HISTORY OF NICOTINE DEPENDENCE 02/24/2017 PAMELLA MD FACC, ALI FACP CCDS Ot I42.0 DILATED CARDIOMYOPATHY 02/28/2017 MERI GODDARD APRN Ot G47.10 HYPERSOMNIA, UNSPECIFIED 02/28/2017 MERI GODDARD APRN Ot G47.33 OBSTRUCTIVE SLEEP APNEA (ADULT) (PEDIATR 03/03/2017 MARCO NATHAN ASSISTANT FACILITY MANAGER Ot E66.8 OTHER OBESITY 03/03/2017 BAIMARCO ALEXIS ASSISTANT FACILITY MANAGER Ot I34.0 NONRHEUMATIC MITRAL (VALVE) INSUFFICIENC 03/03/2017 BAIMARCO ALEXIS L ASSISTANT FACILITY MANAGER Ot I42.0 DILATED CARDIOMYOPATHY 03/03/2017 BAIMARCO ALEXIS L ASSISTANT FACILITY MANAGER Ot I50.21 ACUTE SYSTOLIC (CONGESTIVE) HEART FAILUR 03/03/2017 SELVINMARCO ALEXIS ASSISTANT FACILITY MANAGER Ot R06.00 DYSPNEA, UNSPECIFIED 03/15/2017 PAMELLA ACKERMAN [...] ACKERMAN FACC, IGNACIO FACP CCDS Ot Z79.82 CARE HOME (CURRENT) USE OF ASPIRIN 03/15/2017 IGNACIO CAN MD, FACC FACP CCDS Ot Z79.899 OTHER GTA (CURRENT) DRUG THERAPY 03/15/2017 PAMELLA ACKERMAN FACC, [...] SYSTOLIC (CONGESTIVE) HEART FAIL 09/21/2017 MERI GODDARD GAS MAKER Ot G47.10 HYPERSOMNIA, UNSPECIFIED 09/21/2017 RUPESHMERI CLAYTON E GAS MAKER Ot G47.33 OBSTRUCTIVE SLEEP APNEA (ADULT) (PEDIATR 09/23/2017 RUPESHMERI CLAYTON GAS MAKER Ot G47.10 HYPERSOMNIA, UNSPECIFIED 09/23/2017 RUPESHMARIFER CLAYTONINE E GAS MAKER Ot G47.33 OBSTRUCTIVE SLEEP APNEA (ADULT) (PEDIATR 02/18/2018 PAULA CANTU DO Ot 786.50 CHEST PAIN NOS 02/18/2018 PAMELLA ACKERMAN FACC, IGNACIO FACP CCDS Ot I42.0 DILATED CARDIOMYOPATHY 02/18/2018 MARCO NATHAN ASSISTANT FACILITY MANAGER Ot E66.8 OTHER OBESITY 02/18/2018 MARCO NATHAN ASSISTANT FACILITY MANAGER Ot I34.0 NONRHEUMATIC MITRAL (VALVE) INSUFFICIENC 02/18/2018 MARCO NATHAN ASSISTANT FACILITY MANAGER Ot I42.0 DILATED CARDIOMYOPATHY 02/18/2018 MARCO NATHAN L ASSISTANT FACILITY MANAGER Ot I50.21 ACUTE SYSTOLIC (CONGESTIVE) HEART FAILUR 02/18/2018 MARCO NATHAN ASSISTANT FACILITY MANAGER Ot R06.00 DYSPNEA, UNSPECIFIED 02/18/2018 PAMELLA ACKERMAN [...] (CONGESTIVE) HEART FAIL 02/21/2018 BAIMA MARCO L ASSISTANT FACILITY MANAGER Ot G47.33 OBSTRUCTIVE SLEEP APNEA (ADULT) (PEDIATR 02/21/2018 BAIMA, MARCO L ASSISTANT FACILITY MANAGER Ot I34.0 NONRHEUMATIC MITRAL (VALVE) INSUFFICIENC 02/21/2018 BAIMA, MARCO L ASSISTANT FACILITY MANAGER Ot I42.0 DILATED CARDIOMYOPATHY 02/21/2018 BAIMA MARCO L ASSISTANT FACILITY MANAGER Ot I50.22 CHRONIC SYSTOLIC (CONGESTIVE) HEART FAIL 03/25/2018 BAIMA MARCO L ASSISTANT FACILITY MANAGER Ot G47.33 OBSTRUCTIVE SLEEP APNEA (ADULT) (PEDIATR 03/25/2018 BAIMA, MARCO L ASSISTANT FACILITY MANAGER Ot I34.0 NONRHEUMATIC MITRAL (VALVE) INSUFFICIENC 03/25/2018 BAIMA, MARCO L ASSISTANT FACILITY MANAGER Ot I42.0 DILATED CARDIOMYOPATHY 03/25/2018 BAIMA, MARCO L ASSISTANT FACILITY MANAGER Ot I50.22 CHRONIC SYSTOLIC (CONGESTIVE) HEART FAIL 06/27/2018 PAULA CANTU DO Ot 786.50 CHEST PAIN NOS 06/27/2018 PAMELLA ACKERMAN FACC, IGNACIO FACP CCDS Ot I42.0 DILATED CARDIOMYOPATHY 06/27/2018 BAIMAMARCO L ASSISTANT FACILITY MANAGER Ot E66.8 OTHER OBESITY 06/27/2018 BAIMA, MARCO L ASSISTANT FACILITY MANAGER Ot I34.0 NONRHEUMATIC MITRAL (VALVE) INSUFFICIENC 06/27/2018 BAIMA MARCO L ASSISTANT FACILITY MANAGER Ot I42.0 DILATED CARDIOMYOPATHY 06/27/2018 BAIMA, MARCO L ASSISTANT FACILITY MANAGER Ot I50.21 ACUTE SYSTOLIC (CONGESTIVE) HEART FAILUR 06/27/2018 JUAN NATHANHER L ASSISTANT FACILITY MANAGER Ot R06.00 DYSPNEA, UNSPECIFIED 06/27/2018 PAMELLA ACKERMAN [...] SYSTOLIC (CONGESTIVE) HEART FAIL 06/27/2018 MARCO NATHAN ASSISTANT FACILITY MANAGER Ot G47.33 OBSTRUCTIVE SLEEP APNEA (ADULT) (PEDIATR 06/27/2018 MARCO NATHAN ASSISTANT FACILITY MANAGER Ot I34.0 NONRHEUMATIC MITRAL (VALVE) INSUFFICIENC 06/27/2018 SELVINMAMARCO ASSISTANT FACILITY MANAGER Ot I42.0 DILATED CARDIOMYOPATHY 06/27/2018 BAIMAMARCO L ASSISTANT FACILITY MANAGER Ot I50.22 CHRONIC SYSTOLIC (CONGESTIVE) HEART FAIL 07/05/2018 PAULA CANTU DO Ot 786.50 CHEST PAIN NOS 07/05/2018 PAMELLA ACKERMAN FACC, ALI FACP CCDS Ot I42.0 DILATED CARDIOMYOPATHY 07/05/2018 MARCO NATHAN ASSISTANT FACILITY MANAGER Ot E66.8 OTHER OBESITY 07/05/2018 MARCO NATHAN L ASSISTANT FACILITY MANAGER Ot I34.0 NONRHEUMATIC MITRAL (VALVE) INSUFFICIENC 07/05/2018 MARCO NATHAN ASSISTANT FACILITY MANAGER Ot I42.0 DILATED CARDIOMYOPATHY 07/05/2018 SELVINMAMARCO L ASSISTANT FACILITY MANAGER Ot I50.21 ACUTE SYSTOLIC (CONGESTIVE) HEART FAILUR 07/05/2018 MARCO NATHAN ASSISTANT FACILITY MANAGER Ot R06.00 DYSPNEA, UNSPECIFIED 07/05/2018 PAMELLA ACKERMAN [...] (CONGESTIVE) HEART FAIL 07/05/2018 BAIMA, MARCO L ASSISTANT FACILITY MANAGER Ot G47.33 OBSTRUCTIVE SLEEP APNEA (ADULT) (PEDIATR 07/05/2018 BAIMA, MARCO L ASSISTANT FACILITY MANAGER Ot I34.0 NONRHEUMATIC MITRAL (VALVE) INSUFFICIENC 07/05/2018 BAIMA, MARCO L ASSISTANT FACILITY MANAGER Ot I42.0 DILATED CARDIOMYOPATHY 07/05/2018 BAIMA, MARCO L ASSISTANT FACILITY MANAGER Ot I50.22 CHRONIC SYSTOLIC (CONGESTIVE) HEART FAIL 08/31/2018 SELVINMA, MARCO L ASSISTANT FACILITY MANAGER Ot G47.33 OBSTRUCTIVE SLEEP APNEA (ADULT) (PEDIATR 08/31/2018 BAIMA, MARCO L ASSISTANT FACILITY MANAGER Ot I34.0 NONRHEUMATIC MITRAL (VALVE) INSUFFICIENC 08/31/2018 BAIMA, MARCO L ASSISTANT FACILITY MANAGER Ot I42.0 DILATED CARDIOMYOPATHY 08/31/2018 BAIMA, MARCO L ASSISTANT FACILITY MANAGER Ot I50.22 CHRONIC SYSTOLIC (CONGESTIVE) HEART FAIL 10/10/2018 SELVINMA, MARCO L ASSISTANT FACILITY MANAGER Ot G47.33 OBSTRUCTIVE SLEEP APNEA (ADULT) (PEDIATR 10/10/2018 BAIMA, MARCO L ASSISTANT FACILITY MANAGER Ot I34.0 NONRHEUMATIC MITRAL (VALVE) INSUFFICIENC 10/10/2018 BAIMA, MARCO L ASSISTANT FACILITY MANAGER Ot I42.0 DILATED CARDIOMYOPATHY 10/10/2018 BAIMA, MARCO L ASSISTANT FACILITY MANAGER Ot I50.22 CHRONIC SYSTOLIC (CONGESTIVE) HEART FAIL 10/10/2018 BAIMA, MARCO L ASSISTANT FACILITY MANAGER Ot G47.33 OBSTRUCTIVE SLEEP APNEA (ADULT) (PEDIATR 10/10/2018 BAIMA, MARCO L ASSISTANT FACILITY MANAGER Ot I34.0 NONRHEUMATIC MITRAL (VALVE) INSUFFICIENC 10/10/2018 BAIMA, MARCO L ASSISTANT FACILITY MANAGER Ot I42.0 DILATED CARDIOMYOPATHY 10/10/2018 BAIMA, MARCO L ASSISTANT FACILITY MANAGER Ot I50.22 CHRONIC SYSTOLIC (CONGESTIVE) HEART FAIL [...] - 03/24/17 16:58 Magnesium 1.9 mg/dL 1.8-2.4 Complete blood count (CBC) with automated white blood cell (WBC) differential - 11/06/18 20:11 Blood leukocytes automated count (number/volume) 9.8 10*3/uL 4.3-11.0 Blood erythrocytes automated count (number/volume) 4.75 10*6/uL 4.35-5.85 Venous blood hemoglobin measurement (mass/volume) 10.6 g/dL 11.5-16.0 Blood hematocrit (volume fraction) 34 % 35-52 Automated erythrocyte mean corpuscular volume 71 [foz_us] 80-99 Automated erythrocyte mean corpuscular hemoglobin (mass per erythrocyte) 22 pg 25-34 Automated erythrocyte mean corpuscular hemoglobin concentration measurement (mass/volume) 31 g/dL 32-36 Automated erythrocyte distribution width ratio 18.3 % 10.0- 14.5 Automated blood platelet count (count/volume) 510 10*3/uL 130-400 Automated blood platelet mean volume measurement 9.1 [foz_us] 7.4-10.4 Automated blood neutrophils/100 leukocytes 53 % 42-75 Automated blood lymphocytes/100 leukocytes 35 % 12-44 Blood monocytes/100 leukocytes 8 % 0-12 Automated blood eosinophils/100 leukocytes 4 % 0-10 Automated blood basophils/100 leukocytes 1 % 0-10 Blood neutrophils automated count (number/volume) 5.1 10*3 1.8-7.8 Blood lymphocytes automated count (number/volume) 3.4 10*3 1.0-4.0 Blood monocytes automated count (number/volume) 0.8 10*3 0.0- 1.0 Automated eosinophil count 0.4 10*3/uL 0.0-0.3 Automated blood basophil count (count/volume) 0.1 10*3/uL 0.0-0.1 Comprehensive metabolic panel - 11/06/18 20:11 Serum or plasma sodium measurement (moles/volume) 140 mmol/L 135-145 Serum or plasma potassium measurement (moles/volume) 4.3 mmol/L 3.6-5.0 Serum or plasma chloride measurement (moles/volume) 105 mmol/L 98-107 Carbon dioxide 20 mmol/L 21-32 Serum or plasma anion gap determination (moles/volume) 15 mmol/L 5-14 Serum or plasma urea nitrogen measurement (mass/volume) 26 mg/dL 7-18 Serum or plasma creatinine measurement (mass/volume) 0.93 mg/dL 0.60-1.30 Serum or plasma urea nitrogen/creatinine mass ratio 28 NRG Serum or plasma creatinine measurement with calculation of estimated glomerular filtration rate > NRG Serum or plasma glucose measurement (mass/volume) 110 mg/dL 70-105 Serum or plasma calcium measurement (mass/volume) 9.8 mg/dL 8.5-10.1 Serum or plasma total bilirubin measurement (mass/volume) 0.2 mg/dL 0.1-1.0 Serum or plasma alkaline phosphatase measurement (enzymatic activity/volume) 74 U/L 40-136 Serum or plasma aspartate aminotransferase measurement (enzymatic activity/volume) 17 U/L 5-34 Serum or plasma alanine aminotransferase measurement (enzymatic activity/volume) 18 U/L 0-55 Serum or plasma protein measurement (mass/volume) 7.7 g/dL 6.4-8.2 Serum or plasma albumin measurement (mass/volume) 3.9 g/dL 3.2-4.5 CALCIUM CORRECTED 9.9 mg/dL 8.5-10.1 Serum or plasma creatine kinase measurement (enzymatic activity/volume) - 11/06/18 20:11 Serum or plasma creatine kinase measurement (enzymatic activity/volume) 55 U/L 29-168 Serum or plasma ethanol measurement (mass/volume) - 11/06/18 20:11 Serum or plasma ethanol measurement (mass/volume) < mg/dL <10 Blood type T Indirect antibody screen panel - 11/06/18 20:11 WRISTBAND NUMBER [id number] NRG ABO+Rh group BP NRG Blood group antibody screen NEGATIVE NRG Serum or plasma lithium measurement (moles/volume) - 11/06/18 20:11 BNP PT 84.1 pg/mL <100.0 Complete urinalysis with reflex to culture - 11/06/18 20:27 Urine color determination YELLOW NRG Urine clarity determination CLEAR NRG Urine pH measurement by test strip 5 5-9 Specific gravity of urine by test strip 1.030 1.016-1.022 Urine protein assay by test strip, semi-quantitative 1+ NEGATIVE Urine glucose detection by automated test strip NEGATIVE NEGATIVE Erythrocytes detection in urine sediment by light microscopy 2+ NEGATIVE Urine ketones detection by automated test strip 1+ NEGATIVE Urine nitrite detection by test strip NEGATIVE NEGATIVE Urine total bilirubin detection by test strip NEGATIVE NEGATIVE Urine urobilinogen measurement by automated test strip (mass/volume) NORMAL NORMAL Urine leukocyte esterase detection by dipstick 1+ NEGATIVE Automated urine sediment erythrocyte count by microscopy (number/high power field) [HPF] NRG Automated urine sediment leukocyte count by microscopy (number/high power field) [HPF] NRG Bacteria detection in urine sediment by light microscopy TRACE NRG Squamous epithelial cells detection in urine sediment by light microscopy 10-25 NRG Crystals detection in urine sediment by light microscopy PRESENT NRG Casts detection in urine sediment by light microscopy NONE NRG Mucus detection in urine sediment by light microscopy MODERATE NRG Complete urinalysis with reflex to culture NO NRG Renal epithelial cells detection in urine sediment by light microscopy 0-2 NRG Calcium oxalate crystals detection in urine sediment by light microscopy FEW NRG Urine drug screening test - 11/06/18 20:27 Urine phencyclidine detection by screening method NEGATIVE NEGATIVE Urine benzodiazepines detection by screening method NEGATIVE NEGATIVE Urine cocaine detection NEGATIVE NEGATIVE Urine amphetamines detection by screening method NEGATIVE NEGATIVE Urine methamphetamine detection by screening method NEGATIVE NEGATIVE Urine cannabinoids detection by screening method NEGATIVE NEGATIVE Urine opiates detection by screening method NEGATIVE NEGATIVE Urine barbiturates detection NEGATIVE NEGATIVE Screening urine tricyclic antidepressants detection NEGATIVE NEGATIVE Urine methadone detection by screening method NEGATIVE NEGATIVE Urine oxycodone detection NEGATIVE NEGATIVE Urine propoxyphene detection NEGATIVE NEGATIVE Encounters ACCT No. Visit Date/Time Discharge Status Pt. Type Provider Facility Loc./Unit Complaint [id number] 11/06/2018 20:05:00 11/06/2018 21:42:00 DIS Emergency GOPAL CEDEÑO MD [facility] ER POSSIBLE BROKEN LEG [id number] 07/05/2018 09:07:00 07/05/2018 23:59:59 CLS Outpatient MARCO NATHAN [facility] CARD DILATED CARDIOMYOPATHY [id number] 02/18/2018 07:39:00 02/18/2018 23:59:59 CLS Outpatient MARCO NATHAN [facility] LAB I42.0,G47.33,I34.0 [id number] 05/06/2017 09:58:00 05/06/2017 23:59:59 CLS Outpatient PAMELLA ACKERMAN FACC, IGNACIO GREENWOOD CCDS [facility] CARD CHF-CONGESTIVE HEART FAILURE [id number] 03/24/2017 16:45:00 03/24/2017 23:59:59 CLS Outpatient IGNACIO CAN MD, FACC, FACP CCDS [facility] LAB I50.22 I42.10 [id number] 02/27/2017 20:52:00 02/28/2017 06:04:00 DIS Outpatient MERI GODDARD APRN [facility] SLEEP G47.33,G47.10,G47.50,G47.9,R53.83 [id number] 02/18/2017 14:32:00 02/18/2017 23:59:59 CLS Outpatient MARCO NATHAN [facility] LAB I50.21, I42.0, R06.00, I34.0, E66.8 [id number] 02/15/2017 08:13:00 02/15/2017 23:59:59 CLS Outpatient IGNACIO CAN MD, FACC, FACP CCDS [facility] LAB I42.0 [id number] 02/09/2017 07:16:00 02/10/2017 17:00:00 DIS Outpatient IGNACIO CAN MD, FACC, FACP CCDS [facility] CATH CHF,MITRAL REGURIGITATION,OBESITY [id number] 09/29/2013 07:02:00 09/29/2013 23:59:59 CLS Outpatient PAULA CANTU DO [facility] CARD CHEST PAIN 786.50 [id number] 11/10/2018 09:09:00 PEN Preadmit CHITRA SIERRA DO LEFT OPEN FEMORAL FX
[2018-11-11 06:00] VITALS: BP 138/64
[2018-11-11 06:30] LABS: BASOPHILS # (AUTO) 0.1 10^3/uL (0.0-0.1); BASOPHILS % (AUTO) 1 % (0-10); EOSINOPHILS # (AUTO) 0.5 10^3/uL (0.0-0.3); EOSINOPHILS % (AUTO) 5 % (0-10); HEMATOCRIT 28 % (35-52); HEMOGLOBIN 8.9 G/DL (11.5-16.0); LYMPHOCYTES # (AUTO) 2.2 X 10^3 (1.0-4.0); LYMPHOCYTES % (AUTO) 21 % (12-44); MEAN CORPUSCULAR HEMOGLOBIN 25 PG (25-34); MEAN CORPUSCULAR HGB CONC 32 G/DL (32-36); MEAN CORPUSCULAR VOLUME 78 FL (80-99); MEAN PLATELET VOLUME 9.6 FL (7.4-10.4); MONOCYTES # (AUTO) 0.9 X 10^3 (0.0-1.0); MONOCYTES % (AUTO) 9 % (0-12); NEUTROPHILS # (AUTO) 6.4 X 10^3 (1.8-7.8); NEUTROPHILS % (AUTO) 64 % (42-75); PLATELET COUNT 349 10^3/uL (130-400); RED CELL DISTRIBUTION WIDTH 20.5 % (10.0-14.5); WHITE BLOOD COUNT 10.1 10^3/uL (4.3-11.0)
[2018-11-11] MEDS: KCL 10 MEQ TAB (MICRO K) PO SCH (06:40)
[2018-11-11 06:51] LABS: ALANINE AMINOTRANSFERASE 37 U/L (0-55); ALKALINE PHOSPHATASE 88 U/L (40-136); BILIRUBIN,TOTAL 0.6 MG/DL (0.1-1.0); BUN/CREATININE RATIO 21; CALCIUM 9.6 MG/DL (8.5-10.1); CARBON DIOXIDE 25 MMOL/L (21-32); CHLORIDE 104 MMOL/L (98-107); CREATININE SERUM 0.61 MG/DL (0.60-1.30); GFR ESTIMATED > 60; GLUCOSE 103 MG/DL (70-105); SODIUM 136 MMOL/L (135-145); TOTAL PROTEIN 6.1 GM/DL (6.4-8.2)
[2018-11-11 08:00] VITALS: BP_SYST 117; BP_SYST 125; BP_SYST 127; BP_DIAS 69; BP_DIAS 76; BP_DIAS 77
--- NOTE | 2018-11-11 08:30 | NUR ---
REQUESTED PAIN MED PRIOR TO THERAPY. MEDICATED WITH LORTAB. REQUESTED LASIX AND POTASSIUM BE CHANGED TO PRN AND ORDER RECEIVED. ORTHOSTATIC BP CHECKS DONE - SEE INTERVENTION. ADMITS TO MILD DIZZINESS WHEN UP.
[2018-11-11] MEDS: HYDROcodone/APAP 5 MG/325 MG (LORTAB) TAB PO PRN (08:32)
--- NOTE | 2018-11-11 08:32 | Progress Note - Hospitalist ---
[facility] 11/11/18 0832: Progress Note 11/11/18 @ 7:23 Arlene voice was noticeably hoarse when I walked in the room but got better throughout the interview. With no movement her pain was a 3/10 Had a headache this morning, but has not had a coffee yet Her lightheadedness has improved. Appeared anxious about her lab work Had bowel movement yesterday, but none this morning Is urinating well. she appeared Worried about the pain with rehab Some tingling around the wound Denied Fevers, chills, chest pain, palpitations, SOB, numbness, tingling, Hot or cold intolerance General: A&Ox3, awake, slightly anxious Skin: Slight ecchymosis and swelling around knee Heart: RRR, no murmurs Lungs: CTAB, no rhonchi, rales or wheezes. Abdomen: Bowel sounds WNL, Not TTP Vascular: Dorsalis pedis 2/4 bilaterally, Radial Bilaterally 2/4 Neuro: Sensation intact bilaterally in lower extremities Labs: decrease in her hgb to 8.9 with a hematocrit of 28. BUN has decreased Assessment: Left femur fracture Ligament strain in left knee Deep femoral artery Vascular compromise Infection Dilated Cardiomyopathy Microcytic anemia Medication induced RTA Orthostatic hypotension BPPV Pre-renal azotemia due to low cardiac output Acid reflux Seasonal allergies Plan: Dressing and wound care ABG and BMP for RTA work-up CBC Oral Iron supplementation TID Antibiotics Ultrasound of vasculature Review medication Assistance with Standing OMM for BPPV YUDI SIERRA DO 11/11/18 1653: Supervisory-Addendum Brief Verification & Attestation Time: Verification & Attestat.: 09:00 Participated in pt care: history, MDM, physical Personally performed: exam, history, MDM, supervision of care Care discussed with: Medical Student Procedures: n/a Results interpretation: Verified all documentation Verification and Attestation of Medical Student E/M Service A medical student performed and documented this service in my presence. I reviewed and verified all information documented by the medical student and made modifications to such information, when appropriate. I personally performed the physical exam and medical decision making. Yudi Sierra Nov 11, 2018,16:53 [facility] Nov 11, 2018 08:32 YUDI SIERRA DO Nov 11, 2018 16:53
[2018-11-11] MEDS: ENOXAPARIN 40 MG/0.4 ML (LOVENOX) SYR SC SCH (08:34)
[2018-11-11] MEDS ORDERED: LOSARTAN 50 MG (COZAAR) TAB PO SCH (09:00)
[2018-11-11] MEDS ORDERED: FUROSEMIDE 40 MG (LASIX) TAB PO SCH (09:00)
--- NOTE | 2018-11-11 09:25 | Individualized Plan of Care ---
Individualized Plan of Care Rehab Nursing IPOC Order Admission Date Nov 10, 2018 at 12:25 Current Orders Orders Admission Order(Inpt,Obs,Sdc) (11/10/18 09:36) Vital Signs: Per Unit Policy ( ,16,00 (11/10/18 09:36) Alterations Expert-Inpt Rehab Con (11/10/18 09:36) Rehab Nursing Orders-Ipoc (11/10/18 09:36) Physical Therapy Rehab Orders (11/10/18 09:36) Occupational Therapy Rehab Ord (11/10/18 09:36) Speech Therapy Rehab Orders (11/10/18 09:36) Intake & Output 06,14,22 (11/10/18 09:36) Precautions (Aru) (11/10/18 09:36) Weekly Weight (Lbs) WEEK (11/10/18 09:36) Rehab-Intensity Of Therapy (11/10/18 09:36) Initiate Admission Nursing Pro .admission (11/10/18 09:36) Follow-Up Appointment (11/10/18 12:36) General/Regular (11/10/18 Lunch) Aspirin Enteric Coated Tablet (Ecotrin T (11/11/18 09:00) Carvedilol Tablet (Coreg Tablet) (11/10/18 21:00) Furosemide Tablet (Lasix Tablet) (11/11/18 09:00) Hydrocodone/Apap 5/325 Tablet (Lortab 5 (11/10/18 14:45) Losartan Tablet (Cozaar Tablet) (11/11/18 09:00) Potassium Chloride (Tablet) (Klor Con Ta (11/10/18 17:00) Enoxaparin Injection (Lovenox Injection) (11/10/18 15:00) Enoxaparin Injection (Lovenox Injection) (11/11/18 09:00) Consult Cardiology (11/10/18 15:12) Acetaminophen Tablet (Tylenol Tablet) (11/10/18 15:30) Alprazolam Tablet (Xanax Tablet) (11/10/18 15:30) Calcium Carbonate Chew Tablet (Antacid C (11/10/18 15:30) Diphenhydramine Tablet (Benadryl Tablet) (11/10/18 15:30) Docusate Sodium Capsule (Colace Capsule) (11/10/18 15:30) Loperamide Tablet (Imodium Tablet) (11/10/18 15:30) Polyethylene Glycol Powder Pkt (Miralax (11/10/18 21:00) Melatonin Tablet (Melatonin Tablet) (11/10/18 15:30) Ondansetron Oral Dissolve Tab (Zofran (11/10/18 15:30) Senna S Tablet (Senokot S Tablet) (11/10/18 21:00) Patient Visit (11/10/18 ) Functional Activities, Ea 15 (11/10/18 ) Ambulate 08,12,20 (11/10/18 16:06) Sequential Compression Device 08,20 (11/10/18 16:06) Dvt/Vte Risk - Notifiy Physici .ONCE (11/10/18 16:06) Patient Visit (11/10/18 ) Speech Sound Lang Comp (11/10/18 ) Cbc With Automated Diff (11/11/18 06:00) Comprehensive Metabolic Panel (11/11/18 06:00) Furosemide Tablet (Lasix Tablet) (11/11/18 09:45) Potassium Chloride (Tablet) (Klor Con Ta (11/11/18 09:45) Adolfo Aj (11/11/18 09:42) Consult General Surgery (11/11/18 11:11) Dressing Order (Intervention) BID (11/11/18 11:25) Nursing Communication (Order) (11/11/18 11:29) Losartan Tablet (Cozaar Tablet) (11/11/18 21:00) Rehab Nursing Orders: Ongoing Assess. of Function Status, Bladder Training, Bowel Management, Disease Management & Educaiton, DVT Prophylaxis, Fall Prevention, Fluid/Electrolyte/Nutrition Mgmt, Infection Prevention, Medication Management & Education, Management of Risks & Complications, Management of Skin Intergrity, Nutrition Management, Pain Management, Patient/Family Support, Safety Management Intensity of Therapy to be met Patient to be seen: 15 hrs over 7 cons. days PT IPOC Problem List: Activity Tolerance, Functional Strength, Safety, Balance, Gait, Transfer, Bed Mobility, ROM Treatment Plan: Continue Plan of Care Bed Mobility, Education, Functional Activity Lefty, Functional Strength, Group Therapy, Gait, Safety, Therapeutic Exercise, Transfers Treatment Duration: Nov 24, 2018 Frequency: At least 5 of 7 days/Wk (IRF) Estimated Hrs Per Day: 1.5 hours per day OT IPOC Problems: Decreased Activ Tolerance, Decreased UE Strength, Impaired Bed Mobility, Impaired Coordination, Impaired Funct Balance, Impaired Self-Care Skills, Restricted Funct UE ROM OT Treatment, Training and Edu: Yes Plan of Care: ADL Retraining, Functional Mobility, UE Funct Exercise/Act Treatment Duration: Nov 24, 2018 Frequency: At least 5 of 7 days/Wk (IRF) Estimated Hrs Per Day: 1.[address] IPOC Speech Therapy Treatment Plan: Discontinue ST Treatment Duration: Nov 10, 2018 Frequency: 1 time per week Estimated Hrs Per Day: .25 hour per day Alterations Expert/Case Mgmt Alterations Expert/Case Managemen: Discharge Planning Dietitian/Horticultural Services Supervisor Dietitian/Horticultural Services Supervisor to monitor nutritional status and make changes and/or recommendations as needed and work with speech pathology on dietary upgrades as the occur. Physician IPOC Medical Issues being managed closely and that require the 24 hour availability of a physician: Nonischemic cardiomyopathy will require cardiology consultation and close monitoring of orthostatic hypotension and monitor for any volume overload or dehydration with diuretics Medical Issues: Bowel/Bladder Function, Falls Precautions, Fluid/Electrolyte/Nutrition Balance, Infection Protection, Pain Management, Weight Bearing Precautions Brief Synthesis of Preadmission Screen, Post-Admission Evaluation, and Therapy Evaluations: Physical therapy will focus on ambulation with assistive devices and fall risk prevention Occupational Therapy will help regain independent ADL activity Medical Prognosis: Good Anticipated Length of Stay: 14 days CHITRA SIERRA DO Nov 11, 2018 09:25
--- NOTE | 2018-11-11 09:25 | PM&R Progress Note ---
Subjective HPI/CC On Admission Date Seen by Provider: Nov 11, 2018 Time Seen by Provider: 09:00 Chief complaint: Debility following open left femur fracture History of present illness: This is a 63-year-old white female clinic patient of Dr. Hurt at [facility] who presents to the inpatient rehab unit following an open left femur fracture when she was trying to put the camper on the trailer hitch when she became pinned in between the camper and the truck and sustained the injury. She had an uncomplicated repair at [facility] and now she presents for recovery in order to regain independence and return living at home and returning to work at the [employer] office in [facility]. She quit smoking many years ago and she sees cardiology Dr. Sandoval for nonischemic dilated cardiomyopathy of uncertain etiology and was at 10% on echocardiogram it is improved to 45% on the most recent echo July 2018. She also has a history of acute pancreatitis due to gallbladder disease status post cholecystectomy and occasional GERD. I reviewed labs from [facility] and I have ordered repeat tomorrow and she reports that her bowels are moving very well after multiple laxatives given prior to discharge at [facility]. She reports pain is tolerable takes hydrocodone and Tylenol with good results. Prior level of functioning was completely independent without the use of assistive devices and completely independent with ADLs. Barriers to returning home will include the need to ambulate at least with a walker to get around the house and be able to regain the ability to shower and perform activities of daily living in order to return home. She does have a recent onset of orthostatic hypotension and because of that I will provide a slower paced rehab process with 17/10 in order to assure she can be successful in this unit. I have consulted Dr. Erazo on-call for Dr. Sandoval and his help is much appreciated. Subjective/Events-last exam Having some very mild orthostatic issues but otherwise doing very well MARCIA hose maintain thigh-high for edema Aspirin or Lovenox still has to be decided but she is maintained on Lovenox Using her polar pack ice which really helps her pain Hemoglobin at 8.[address] Albarado to evaluate incision sites Takes Tylenol most of the time but also has Lortab to take before therapy Having a little bit hoarseness today Pain is 3/10 Worried about when the pain increases with therapy Denies any headache Had 2 bowel movements yesterday Conferred with RN Reviewed therapy notes Check meds and labs Review of Systems General: Fatigue Musculoskeletal: leg pain Objective Exam Vital Signs Vital Signs Date Time Temp Pulse Resp B/P (MAP) Pulse Ox O2 Delivery O2 Flow Rate FiO2 11/11/18 09:00 Room Air 11/11/18 08:00 106 125/77 (93) 91 127/69 (88) 111 117/76 (90) 11/11/18 06:00 99.0 21 97 Capillary Refill : Less Than 3 Seconds General Appearance: No Apparent Distress, WD/WN, Chronically ill HEENT: PERRL/EOMI, Normal ENT Inspection, Pharynx Normal Neck: Full Range of Motion, Normal Inspection, Non Tender, Supple Respiratory: Chest Non Tender, Lungs Clear, Normal Breath Sounds, No Accessory Muscle Use, No Respiratory Distress Cardiovascular: Regular Rate, Rhythm, No Gallop, No JVD, No Murmur Gastrointestinal: Normal Bowel Sounds, Non Tender, Soft Rectal: Deferred Back: No CVA Tenderness Extremity: Normal Capillary Refill, Normal Inspection, Non Tender, No Calf Tenderness, Pedal Edema, Other (limited ROM left leg) Neurologic/Psychiatric: Alert, Oriented x3, No Motor/Sensory Deficits, Normal Mood/Affect, school psychologist II-XII Norm as Tested, Motor Weakness (left leg) Skin: Normal Color, Warm/Dry Lymphatic: No Adenopathy Results/Procedures Lab Laboratory Tests 11/11/18 05:50 Patient resulted labs reviewed. FIM Transfers Therapy Code Descriptions/Definitions Functional [place] Measure: 0=Not Assessed/NA 4=Minimal Assistance 1=Total Assistance 5=Supervision or Setup 2=Maximal Assistance 6=Modified [place] 3=Moderate Assistance 7=Complete [place] Therapy Quality Codes: 6 Independent with activity with or without an assistive device 5 Patient requires set up or clean up by helper. Patient completes activity by themselves 4 Supervision or touching assist (CGA). [place] provide cues , steadying assist 3 The helper provides less than half the effort to complete the activity 2 The helper provides more than half the effort to complete the activity 1 Dependent. The helper does all the effort to complete an activity 7 Patient refused to complete or attempt activity 9 The patient did not perform the activity before the current illness or injury 88 Not attempted due to Medical conditions or safety concerns Transfers (B, C, W/C) (FIM): 3 Scootin Roll Left to Right (QC): 4 Supine to/from Sit: 3 (assist with both legs; HOB elevated) Sit to/from Stand: 3 (mod assist with come to a stand) Sit to Lying (QC): 3 Sit to Stand (QC): 3 (mod assist with skilled cues for hand placement) Chair/Uys-dg-Cgiet Xfer(QC): 4 Car Transfer (QC): 3 Gait Training Does the Patient Walk?: Yes Gait (FIM): 2 Distance (FIM): 1=up to 49 ft Walk 10 feet (QC): 4 Walk 50 ft with 2 Turns(QC): 88 (pt unable to walk this distance) Walk 150 ft (QC): 88 Walking 10ft/uneven surface-QC: 4 Gait Level of Assist: 4 (close CGA for safety) Gait Assistive Device: FWW Wheelchair Training Does the Pt Use a Wheelchair?: No Stair Training Stairs (FIM): 1 #of Steps: 1 1 Step (curb) (QC): 3 (mod assist to step up and to control to lower) 4 Steps (QC): 88 12 Steps (QC): 88 Level of Assist: 3 Balance Picking up an Object (QC): 88 Mental Status/Objective Comprehension: 7 Expression: 7 Social Interaction: 7 Problem Solvin Memory: 7 ADL-Treatment Feedin Eating (QC): 6 Bathin Bathing Location: L Arm, R Arm, L Upper Leg, R Upper Leg, R Lower Leg (including foot), Chest, Abdomen, Perineal Area Shower/Bathe Self (QC): 3 Lower Extremity Dressin Lower Body Dressing (QC): 2 On/Off Footwear (QC): 2 Toiletin Toileting Hygiene (QC): 2 Toilet/Commode Transfer: 3 Toilet Transfer (QC): 3 Shower: 3 Assessment/Plan Assessment and Plan Assess & Plan/Chief Complaint Assessment: Left femur fracture open type s/p repair Ligament strain in left knee with left knee pain and restricted ROM Deep femoral artery vascular compromise Dilated Cardiomyopathy nonischemic type Dr Sandoval follows Microcytic anemia Medication induced RTA Orthostatic hypotension BPPV Pre-renal azotemia due to low cardiac output Stress induced hyperglycemia Acid reflux Seasonal allergies Plan: Dressing and wound care ABG and BMP for RTA work-up if worsens CBC CMP prn Oral Iron supplementation TID Antibiotics Glucometer testing Ultrasound of vasculature if atypical symptoms occur Review medication Assistance with Standing OMM for BPPV (1) Femur fracture (2) Hypotension Status: Acute Qualifiers: Hypotension type: orthostatic hypotension Qualified Codes: I95.1 - Orthostatic hypotension (3) History of pancreatitis Status: Chronic (4) GERD without esophagitis Status: Chronic (5) Postoperative anemia Status: Acute (6) DVT prophylaxis Status: Acute (7) Dilated cardiomyopathy Status: Chronic (8) Orthostasis Status: Acute CHITRA SIERRA DO Nov 11, 2018 09:25
[2018-11-11] MEDS: SENNA W/DOCUSATE (SENOKOT S) TABLET PO SCH ×2 (09:28→21:40)
[2018-11-11] MEDS: POLYETHYLENE GLYCOL 17 GM (MIRALAX) PACK PO SCH ×2 (09:28→21:40)
--- NOTE | 2018-11-11 09:39 | Physical Therapy Daily Note ---
PT Daily Note-Current Subjective Pt. explains that she has had poor strength in right shoulder for quite some time secondary to RCT. Pt. c/o pain in left leg at 5/10 and also discomfort and fatigue in her right arm from attempting to alleviate weight from her arm. Pain Numeric Pain Scale: 5-Moderate Pain Location: Left Location Body Site: Knee Pain Description: Pressure Mental Status Patient Orientation: Normal For Age Transfers Therapy Code Descriptions/Definitions Functional [place] Measure: 0=Not Assessed/NA 4=Minimal Assistance 1=Total Assistance 5=Supervision or Setup 2=Maximal Assistance 6=Modified [place] 3=Moderate Assistance 7=Complete [place] Therapy Quality Codes: 6 Independent with activity with or without an assistive device 5 Patient requires set up or clean up by helper. Patient completes activity by themselves 4 Supervision or touching assist (CGA). [place] provide cues , steadying assist 3 The helper provides less than half the effort to complete the activity 2 The helper provides more than half the effort to complete the activity 1 Dependent. The helper does all the effort to complete an activity 7 Patient refused to complete or attempt activity 9 The patient did not perform the activity before the current illness or injury 88 Not attempted due to Medical conditions or safety concerns Transfers (B, C, W/C) (FIM): 4 Supine to/from Sit: 4 Sit to/from Stand: 4 Bed to/from Chair: 4 Weight Bearing Right Lower Extremity: Right Full Weight Bearing Left Lower Extremity: Left Weight Bearing/Tolerated Gait Training Does the Patient Walk?: Yes Gait (FIM): 1 Distance (FIM): 1=up to 49 ft (25ftx4) Gait Level of Assist: 4 Gait Persons Needed: 1 Gait Assistive Device: FWW slow with min to CGA , small step length , heavy wt bearing on UEs on FWW Exercises Supine Ex: Ankle pumps, Quad Set, Glut sets, Heel Slides, Short Arc Quads, Scooting (up in chiar , up in bed), Straight leg raise (assist LLE), Hip abd/add Supine Reps: 15 (x2) Seated Therapy Exercises: Ankle pumps, Sit to stand, Long arc quads, Hip flexion, Hip abd/add Seated Reps: 15 (x2) Treatments toileted with min assist to manage the tongs cleansing. pt. taught to use the lift recline for comfort and how to position in it and pull self up etc Assessment Current Status: Good Progress PT Short Term Goals Short Term Goals Time Frame: Nov 17, 2018 Transfers (B,C,W/C) (FIM): 4 Gait (FIM): 4 PT Patternmaker Hand Goals Usp Goals PT Usp Goals Time Frame: Nov 24, 2018 Transfers (B,C,W/C) (FIM): 7 Sit to Lying (QC): 6 Lying-Sitting on Side/Bed(QC): 6 Sit to Stand (QC): 6 Roll Left to Right (QC): 6 Chair/Deu-ng-Dlsbp Xfer(QC): 6 Car Transfer (QC): 6 Does the Patient Walk: Yes Gait (FIM): 6 Gait distance (FIM): 3=150 ft Walk 10 feet (QC): 6 Walk 10ft-Uneven Surface(QC): 6 Walk 50ft with 2 Turns (QC): 6 Walk 150 ft (QC): 6 Gait Assistive Device: FWW Does the Pt use WC or Scooter?: No Stairs (FIM): 5 (household) # of Steps: 4 1 Step (curb) (QC): 6 4 Steps (QC): 6 12 Steps (QC): 88 Stairs Level Of Assist: 6 Picking up an Object (QC): 88 PT Plan Treatment/Plan Treatment Plan: Continue Plan of Care Treatment Plan: Bed Mobility, Education, Functional Activity Lefty, Functional Strength, Group Therapy, Gait, Safety, Therapeutic Exercise, Transfers Treatment Duration: Nov 24, 2018 Frequency: At least 5 of 7 days/Wk (IRF) Estimated Hrs Per Day: 1.5 hours per day Patient and/or Family Agrees t: Yes Safety Risks/Education Patient Education: Gait Training, Transfer Techniques, Correct Positioning, Disease Process, Safety Issues Teaching Recipient: Patient Teaching Methods: Demonstration, Discussion Response to Teaching: Verbalize Understanding, Return Demonstration, Reinforcement Needed Time/GCodes Time In: 800 Time Out: 930 Total Billed Treatment Time: 90 Total Billed Treatment 1,EX35m,GT25m,FA20m G Codes Necessary: CURT Fowler WAREHOUSE ENGINEER Nov 11, 2018 09:39
[2018-11-11] MEDS: CARVEDILOL 12.5 MG (COREG) TABLET PO SCH ×2 (09:40→21:39)
[2018-11-11] MEDS ORDERED: KCL 10 MEQ TAB (MICRO K) PO PRN (09:45)
[2018-11-11] MEDS ORDERED: FUROSEMIDE 40 MG (LASIX) TAB PO PRN (09:45)
--- NOTE | 2018-11-11 11:00 | NUR ---
DR. REYES HERE TO SEE PATIENT. LARGE AMOUNT OF YELLOW DRAINAGE LEFT HIP INCISION. ORDER TO CHANGE DRESSING BID AND PRN.
--- NOTE | 2018-11-11 11:29 | NUR ---
DR. PARKS HERE TO SEE PATIENT. ORDER TO CONTINUE BOTH LOVENOX AND ASA.
[2018-11-11] MEDS: ASPIRIN E.C. 81 MG (ECOTRIN) TAB PO SCH (11:39)
--- NOTE | 2018-11-11 11:40 | NUR ---
RAZA CHANGED TO HS PER PATIENT REQUEST - STATES IT MAKES HER DIZZY SOMETIMES AND LIKES TO TAKE IT BEFORE SLEEP.
--- NOTE | 2018-11-11 12:24 | CONSULTATION REPORT ---
DATE OF SERVICE: 11/11/2018 ATTENDING PRIMARY CARE PHYSICIAN: Shayla Hurt MD. ADMITTING PHYSICIAN: Yudi Medina DO. INDICATIONS: The patient is a 63-year-old female involved in a trauma to the left distal femur and encompassing a heavy trailer hitch, which caused a distal femur fracture. She was initially seen at [facility] Emergency [facility]; however, due to the type of fracture, she was transferred to [facility] for intramedullary kristie placement. This was approximately 5 days ago. She has done well; however, was transferred to inpatient rehabilitation here in [facility] [place] due to proximity to home. She is doing well; however, does have significant pain of the left lower extremity, especially upon ambulation. We were consulted to evaluate her wound to the left hip. [place] are intact. Skin edges are clean. There is mild amount of serosanguineous drainage. There were no signs of infection. She is otherwise eating well and does not have any systemic symptoms of fever nor chills. PAST MEDICAL HISTORY: Congestive heart failure and COPD. PAST SURGERIES: Laparoscopic cholecystectomy, tonsillectomy and left intramedullary kristie placement. ALLERGIES: No known drug allergies. MEDICATIONS: Aspirin 81 mg daily, Cozaar daily and Lasix 20 mg daily. SOCIAL HISTORY: Negative smoke and negative alcohol. FAMILY HISTORY: Noncontributory. REVIEW OF SYSTEMS: Well-nourished female, in no acute distress. She is not experiencing any shortness of breath or difficulty in breathing. No cough or sputum production. No chest pain, palpitations or diaphoresis. No nausea, vomiting, diarrhea or constipation. She has distal pulses bilaterally and is able to ambulate; however, does have significant pain in the left lower extremity. There is a mild amount of serosanguineous drainage from the left hip incision; however, the bella are intact. There is no surrounding redness or erythema as well as no purulence. No fever, chills and no recent inadvertent weight loss. All other review of systems are negative. PHYSICAL EXAMINATION: VITAL SIGNS: Temperature 99.0, blood pressure 125/77, pulse 91, respirations 18 and pulse ox 97% on room air. CHEST: Clear. Good breath sounds bilaterally. HEART: Regular, no murmurs. EXTREMITIES: A +1/3 bilateral lower extremity edema. Negative Homans sign. HEENT: No scleral icterus and no cervical lymphadenopathy. ABDOMEN: Soft, nontender and nondistended. SKIN: Warm and dry. The incision along the left hip is intact with no surrounding redness, erythema and no fluctuance as well as no purulent drainage. ASSESSMENT AND PLAN: A 63-year-old female with distal femur fracture status post intramedullary kristie placement. Upon examination of her wounds, they are clean, dry and intact and healing appropriately. The wound of the left hip does have some serous drainage; however, it is most likely due to the higher concentration of adipose tissue in the region; however, the drainage is normal appearing. There is no redness or erythema to indicate any infection as well as no fluctuance to indicate any abscess. We will have her continue with her current regimen in the inpatient rehabilitation. Job ID: [id number] DocumentID: [id number] Dictated Date: 11/11/2018 11:50:54 Strip Mill Operator Date: 11/11/2018 12:24:01 Dictated By: GULSHAN REYES MD
--- NOTE | 2018-11-11 12:43 | Occupational Ther Daily Note ---
OT Current Status-Daily Note Subjective Pt seen in room, up in recliner, agreeable to OT. No pain mentioned. Appearance Alert, cooperative Mental Status/Objective Therapy Code Descriptions/Definitions Functional [place] Measure: 0=Not Assessed/NA 4=Minimal Assistance 1=Total Assistance 5=Supervision or Setup 2=Maximal Assistance 6=Modified [place] 3=Moderate Assistance 7=Complete [place] ADL-Treatment Pt did not want to shower but did want to go to the sink and wash up a little and brush her teeth. She used the lift chair to assist with getting up and stood with min assist. She walked CGA, FWW a few steps to the w/c and sat with CGA and some cues for hand placement. She propelled the w/c to the bathroom and positioned it at the sink. Pt educ to lock brakes when sitting and doing ADLs. She washed her face and hands and underarms at the sink with setup. She repositioned w/c and got up from w/c with min assist (difficulty leaning far enough forward) and walked to toilet. Toilet transfer with CGA, BSC over toilet. Pt educ for hand placement sit to stand after toileting. Pt managed clothing and hygiene with CGA, FWW. One time brief LOB with pt self-correcting. Pt dressed upper body with setup. Dressed lower body with pt educ use of dressing stick and modified techniques, min assist getting L foot into pants, min assist sit to stand and CGA to maintain to pull pants up. Therapy Code Descriptions/Definitions Functional [place] Measure: 0=Not Assessed/NA 4=Minimal Assistance 1=Total Assistance 5=Supervision or Setup 2=Maximal Assistance 6=Modified [place] 3=Moderate Assistance 7=Complete [place] Therapy Quality Codes: 6 Independent with activity with or without an assistive device 5 Patient requires set up or clean up by helper. Patient completes activity by themselves 4 Supervision or touching assist (CGA). [place] provide cues , steadying assist 3 The helper provides less than half the effort to complete the activity 2 The helper provides more than half the effort to complete the activity 1 Dependent. The helper does all the effort to complete an activity 7 Patient refused to complete or attempt activity 9 The patient did not perform the activity before the current illness or inju ry 88 Not attempted due to Medical conditions or safety concerns Grooming (FIM): 5 (setup, w/c level at sink) Oral Hygiene (QC): 5 Upper Body (FIM): 5 (setup, w/c level) Upper Body Dressing (QC): 5 Lower Body Dressing (FIM): 3 (Help with getting pants on L foot, sit to stand. FWW) Toileting (FIM): 4 (CGA) Toilet/Commode Transfer (FIM): 4 (CGA to sit, min assist to stand) Other Treatment Pt propelled w/c to gym and positioned chair at table. Completed 12 minutes bilat UE exercise with arm bike set at 15W resistance, taking one brief recovery break midway through. Also completed graded clothespins, arc activity x 3 sets and nuts/bolts, all with 1# weight on each arm. All to strengthen arms to help with transfers and ADLs. Pt propelled w/c back to room, recalled to lock the breaks, stood with min assist, walked CGA, FWW to bed, sat CGA, lifted both legs and got into bed SBA. Pt left up in bed, 3 rails up, all needs met. Education OT Patient Education: Modified ADL techniques, Progress toward Goal/Update tx plan, Purpose of tx/functional activities, Safety issues, Transfer techniques, Use of adapted equipment Teaching Recipient: Patient Teaching Methods: Demonstration, Discussion Response to Teaching: Verbalize Understanding, Return Demonstration, Reinforcement Needed OT Short Term Goals Short Term Goals Time Frame: Nov 17, 2018 Eating(FIM): 7 Grooming(FIM): 5 Bathing(FIM): 4 Upper Body Dressing(FIM): 5 Lower Body Dressing(FIM): 4 Toileting(FIM): 4 Transfers (B,C,W/C) (FIM): 4 Toilet/Commode Transfer(FIM): 4 Shower Transfer(FIM): 4 Additional Short Term Goals: 1-Demonstrate ADL Tasks, 2-Verbalize Understanding , 3-ImproveStrength/Lefty 1=Demonstrate adherence to instructed precautions during ADL tasks. 2=Patient will verbalize/demonstrate understanding of assistive devices/modifications for ADL. 3=Patient will improve strength/tolerance for activity to enable patient to perform ADL's. OT Income Tax Preparer Goals Income Tax Preparer Goals Time Frame: Nov 24, 2018 Eating (FIM): 7 Eating (QC): 6 Groomin Oral Hygiene (QC): 6 Bathing(FIM): 5 Shower/Bathe Self (QC): 5 Upper Body Dressing(FIM): 6 Upper Body Dressing (QC): 6 Lower Body Dressing(FIM): 6 Lower Body Dressing (QC): 6 On/Off Footwear (QC): 6 Toileting(FIM): 6 Toileting Hygiene (QC): 6 Transfers (B,C,W/C) (FIM): 6 Toilet/Commode Transfer(FIM): 6 Toilet/Commode Transfer (QC): 6 Shower Transfer(FIM): 6 Additional Goals: 1-Demonstrate ADL Tasks, 2-Verbalize Understanding, 3- ImproveStrength/[place]ef[place] 1=Demonstrate adherence to instructed precautions during ADL tasks. 2=Patient will verbalize/demonstrate understanding of assistive devices/modifications for ADL. 3=Patient will improve strength/tolerance for activity to enable patient to perform ADL's. OT Education/Plan Discharge Recommendations Plan/Recommendations: Continue POC Treatment Plan/Plan of Care Patient would benefit from OT for education, treatment and training to promote independence in ADL's, mobility, safety and/or upper extremity function for ADL's. Plan of Care: ADL Retraining, Functional Mobility, UE Funct Exercise/Act Treatment Duration: Nov 24, 2018 Frequency: At least 5 of 7 days/Wk (IRF) Estimated Hrs Per Day: 1.5 hours per day Agreement: Yes Rehab Potential: Good Time/GCodes Start Time: 09:30 Stop Time: 11:00 Total Time Billed (hr/min): 90 Billed Treatment Time visit, 40 minutes ADL, 50 minutes exercise JUNIE LOPEZ OT Nov 11, 2018 12:43
--- NOTE | 2018-11-11 15:00 | NUR ---
MEDICATED WITH TYLENOL FOR HEADACHE. UP IN CHAIR ALL DAY.
[2018-11-11] MEDS: ACETAMINOPHEN 500 MG TAB (TYLENOL) PO PRN (15:01)
[2018-11-11 18:00] VITALS: BP 104/71
[2018-11-11] MEDS: LOSARTAN 50 MG (COZAAR) TAB PO SCH (21:39)
[2018-11-12 05:53] VITALS: BP 117/75
[2018-11-12 08:00] VITALS: BP 106/62
--- NOTE | 2018-11-12 08:28 | Physical Therapy Daily Note ---
PT Daily Note-Current Subjective Patient in bed pre tx, agrees to PT, has 5/10 pain in left leg. Needs to use the restroom. Appearance Patient in recliner post tx with nurse call, phone, tray, all needs met. Mental Status Patient Orientation: Person, Place, Situation Transfers Therapy Code Descriptions/Definitions Functional [place] Measure: 0=Not Assessed/NA 4=Minimal Assistance 1=Total Assistance 5=Supervision or Setup 2=Maximal Assistance 6=Modified [place] 3=Moderate Assistance 7=Complete [place] Therapy Quality Codes: 6 Independent with activity with or without an assistive device 5 Patient requires set up or clean up by helper. Patient completes activity by themselves 4 Supervision or touching assist (CGA). [place] provide cues , steadying assist 3 The helper provides less than half the effort to complete the activity 2 The helper provides more than half the effort to complete the activity 1 Dependent. The helper does all the effort to complete an activity 7 Patient refused to complete or attempt activity 9 The patient did not perform the activity before the current illness or injury 88 Not attempted due to Medical conditions or safety concerns Transfers (B, C, W/C) (FIM): 4 Scootin Rollin Supine to/from Sit: 4 Sit to/from Stand: 4 Bed to/from Chair: 4 Min assist supine to sit, CGA for transfers Weight Bearing Right Lower Extremity: Right Full Weight Bearing Left Lower Extremity: Left Weight Bearing/Tolerated Gait Training Gait (FIM): 1 Distance: 10', 20' Gait Level of Assist: 4 Gait Persons Needed: 1 Gait Assistive Device: FWW slow, antalgic, CGA, poor step-through on the right side. 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 PT Concrete Mixer Operator Helper Goals Time Frame: Nov 24, 2018 Transfers (B,C,W/C) (FIM): 7 Sit to Lying (QC): 6 Lying-Sitting on Side/Bed(QC): 6 Sit to Stand (QC): 6 Roll Left to Right (QC): 6 Chair/Bem-mk-Ycajo Xfer(QC): 6 Car Transfer (QC): 6 Does the Patient Walk: Yes Gait (FIM): 6 Gait distance (FIM): 3=150 ft Walk 10 feet (QC): 6 Walk 10ft-Uneven Surface(QC): 6 Walk 50ft with 2 Turns (QC): 6 Walk 150 ft (QC): 6 Gait Assistive Device: FWW Does the Pt use WC or Scooter?: No Stairs (FIM): 5 (household) # of Steps: 4 1 Step (curb) (QC): 6 4 Steps (QC): 6 12 Steps (QC): 88 Stairs Level Of Assist: 6 Picking up an Object (QC): 88 PT Plan Problem List Problem List: Activity Tolerance, Functional Strength, Safety, Balance, Gait, Transfer, Bed Mobility, ROM Treatment/Plan Treatment Plan: Continue Plan of Care Treatment Plan: Bed Mobility, Education, Functional Activity [place], Functional Strength, Group Therapy, Gait, Safety, Therapeutic Exercise, Transfers Treatment Duration: Nov 24, 2018 Frequency: At least 5 of 7 days/Wk (IRF) Estimated Hrs Per Day: 1.5 hours per day Patient and/or Family Agrees t: Yes Safety Risks/Education Patient Education: Gait Training, Transfer Techniques, Correct Positioning, Safety Issues Teaching Recipient: Patient Teaching Methods: Demonstration, Discussion Response to Teaching: Reinforcement Needed Time/GCodes Time In: 0808 Time Out: 08 Total Billed Treatment Time: 17 Total Billed Treatment 1 visit GT PIPER ESPITIA PT Nov 12, 2018 08:28
[2018-11-12] MEDS: ASPIRIN E.C. 81 MG (ECOTRIN) TAB PO SCH (08:29)
[2018-11-12] MEDS: CARVEDILOL 12.5 MG (COREG) TABLET PO SCH ×2 (08:29→21:12)
[2018-11-12] MEDS: HYDROcodone/APAP 5 MG/325 MG (LORTAB) TAB PO PRN (08:30)
--- NOTE | 2018-11-12 08:30 | NUR ---
MEDICATED REQUESTED WITH [facility] FOR THERAPY. PROGRESSING WELL WITH THERAPY. STATES NOT DIZZY WHEN UP ANYMORE.
[2018-11-12] MEDS: POLYETHYLENE GLYCOL 17 GM (MIRALAX) PACK PO SCH ×2 (08:31→21:13)
[2018-11-12] MEDS: ENOXAPARIN 40 MG/0.4 ML (LOVENOX) SYR SC SCH (08:31)
[2018-11-12] MEDS: SENNA W/DOCUSATE (SENOKOT S) TABLET PO SCH ×2 (08:32→21:13)
--- NOTE | 2018-11-12 11:26 | Cardiology Progress Note ---
Subjective Date Seen by Provider: Nov 12, 2018 Time Seen by Provider: 11:19 Subjective/Events-last exam Patient is sitting in a chair, feeling better, having less dizziness Review of Systems General: No Chills, No Night Sweats, No Fatigue, No Malaise, No Appetite, No Other HEENT: No Head Aches, No Visual Changes, No Eye Pain, No Ear Pain, No Dysphasia, No Sinus Congestion, No Post Nasal Drip, No Sore Throat, No Other Pulmonary: No Dyspnea, No Cough, No Pleuritic Chest Pain, No Other Cardiovascular: No: Chest Pain, Palpitations, Orthopnea, Paroxysmal Noc. Dyspnea, Edema, Lt Headedness, Other Objective-Cardiology Exam Last Set of Vital Signs Vital Signs 11/12/18 11/12/18 05:53 09:00 Temp 99.2 Pulse 91 Resp 18 B/P (MAP) 117/75 (89) Pulse Ox 95 O2 Delivery Room Air Capillary Refill : Less Than 3 Seconds I&O Intake and Output 11/12/18 00:00 Intake Total 1440 ml Balance 1440 ml Intake Oral 1440 ml # Voids 5 # Bowel Movements 1 General: Alert, Oriented X3, Cooperative, No Acute Distress HEENT: Atraumatic, PERRLA Neck: Supple, No JVD, No Thyromegaly Lungs: Clear to Auscultation, Normal Air Movement Heart: Regular Rate, Normal S1, Normal S2, No Murmurs Abdomen: Normal Bowel Sounds, Soft, No Tenderness, No Hepatosplenomegaly, No Masses Extremities: No Clubbing, No Cyanosis, Normal Pulses, Other (trace edema) Skin: No Rashes, No Breakdown, No Significant Lesion Neuro: Normal Speech, Normal Tone, Sensation Intact Psych/Mental Status: Mental Status NL, Mood NL A/P-Cardiology Admission Diagnosis Femur fracture CHF Dizziness HTN Assessment/Plan Open femur fracture occurred 11/06/18, s/p repair. Recovering slowly Dizziness/lightheadedness, mild occasional orthostatic dizziness, reporting improvement after adjustment to her meds, continue to monitor CHF, chronic compensated dilated cardiomyopathy of undetermined etiology. Echo of 01/28/17 is reported have shown diff hypokinesia of the LV, LVEF 30-35%, dilated LA, mod to severe MR, AoV sclerosis w/o stenosis, PASP approx 25 mmhg. Echocardiogram of July 05, 2018 showed 40-45%. Mild to mod hyokinesis of the interventricular septum. Grade 1 diastolic dysfunction. LA dilated. Mild MR. PASP approx 25-30mmHg. Maintained on Coreg 12.5mg BID and Losartan 50mg daily. Continue on current medications. History of intolerance to HELENA-I secondary to cough. Obesity with BMI approx 35 Quit smoking in 1984 GERD Sleep apnea - uses CPAP H/O Vertigo Clinical Quality Measures DVT/VTE Risk/Contraindication: Risk Factor Score Per Nursin RFS Level Per Nursing on Admit: 4+=Very High NIDHI PARKS MD Nov 12, 2018 11:26
--- NOTE | 2018-11-12 12:59 | PM&R Progress Note ---
Subjective HPI/CC On Admission Date Seen by Provider: Nov 12, 2018 Time Seen by Provider: 12:30 Chief complaint: Debility following open left femur fracture History of present illness: This is a 63-year-old white female clinic patient of Dr. Hurt at [facility] who presents to the inpatient rehab unit following an open left femur fracture when she was trying to put the camper on the trailer hitch when she became pinned in between the camper and the truck and sustained the injury. She had an uncomplicated repair at [facility] and now she presents for recovery in order to regain independence and return living at home and returning to work at the [employer] office in [facility]. She quit smoking many years ago and she sees cardiology Dr. Sandoval for nonischemic dilated cardiomyopathy of uncertain etiology and was at 10% on echocardiogram it is improved to 45% on the most recent echo July 2018. She also has a history of acute pancreatitis due to gallbladder disease status post cholecystectomy and occasional GERD. I reviewed labs from [facility] and I have ordered repeat tomorrow and she reports that her bowels are moving very well after multiple laxatives given prior to discharge at [facility]. She reports pain is tolerable takes hydrocodone and Tylenol with good results. Prior level of functioning was completely independent without the use of assistive devices and completely independent with ADLs. Barriers to returning home will include the need to ambulate at least with a walker to get around the house and be able to regain the ability to shower and perform activities of daily living in order to return home. She does have a recent onset of orthostatic hypotension and because of that I will provide a slower paced rehab process with 17/10 in order to assure she can be successful in this unit. I have consulted Dr. Erazo on-call for Dr. Sandoval and his help is much appreciated. Subjective/Events-last exam Much improved today Very grateful for the services that are provided here in inpatient rehabilitation she really could not go home at the state she was in She was a 2 person transfer now she is doing extremely well Takes Lortab before therapy and relies on Tylenol the other times Thigh-high MARCIA hose will be changed to knee-high and that's more comfortable for her Minimal orthostasis Appreciate cardiology management Conferred with RN Reviewed therapy notes Check meds and labs Review of Systems Musculoskeletal: leg pain Objective Exam Vital Signs Vital Signs Date Time Temp Pulse Resp B/P (MAP) Pulse Ox O2 Delivery O2 Flow Rate FiO2 11/12/18 09:00 Room Air 11/12/18 05:53 99.2 91 18 117/75 (89) 95 Capillary Refill : Less Than 3 Seconds General Appearance: No Apparent Distress, WD/WN, Chronically ill HEENT: PERRL/EOMI, Normal ENT Inspection, Pharynx Normal Neck: Full Range of Motion, Normal Inspection, Non Tender, Supple Respiratory: Chest Non Tender, Lungs Clear, Normal Breath Sounds, No Accessory Muscle Use, No Respiratory Distress Cardiovascular: Regular Rate, Rhythm, No Gallop, No JVD, No Murmur Gastrointestinal: Normal Bowel Sounds, Non Tender, Soft Rectal: Deferred Back: No CVA Tenderness Extremity: Normal Capillary Refill, Normal Inspection, Non Tender, No Calf Tenderness, Pedal Edema, Other (limited ROM left leg) Neurologic/Psychiatric: Alert, Oriented x3, No Motor/Sensory Deficits, Normal Mood/Affect, 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 FIM Transfers Therapy Code Descriptions/Definitions Functional [place] Measure: 0=Not Assessed/NA 4=Minimal Assistance 1=Total Assistance 5=Supervision or Setup 2=Maximal Assistance 6=Modified [place] 3=Moderate Assistance 7=Complete [place] Therapy Quality Codes: 6 Independent with activity with or without an assistive device 5 Patient requires set up or clean up by helper. Patient completes activity by themselves 4 Supervision or touching assist (CGA). [place] provide cues , steadying a ssist 3 The helper provides less than half the effort to complete the activity 2 The helper provides more than half the effort to complete the activity 1 Dependent. The helper does all the effort to complete an activity 7 Patient refused to complete or attempt activity 9 The patient did not perform the activity before the current illness or injury 88 Not attempted due to Medical conditions or safety concerns Transfers (B, C, W/C) (FIM): 4 Scootin Rollin Roll Left to Right (QC): 4 Supine to/from Sit: 4 Sit to/from Stand: 4 Sit to Lying (QC): 3 Sit to Stand (QC): 3 (mod assist with skilled cues for hand placement) Chair/Shf-ss-Jgqua Xfer(QC): 4 Bed to/from Chair: 4 Car Transfer (QC): 3 Gait Training Does the Patient Walk?: Yes Gait (FIM): 1 Distance (FIM): 1=up to 49 ft (25ftx4) Distance: 10', 20' Walk 10 feet (QC): 4 Walk 50 ft with 2 Turns(QC): 88 (pt unable to walk this distance) Walk 150 ft (QC): 88 Walking 10ft/uneven surface-QC: 4 Gait Level of Assist: 4 Gait Persons Needed: 1 Gait Assistive Device: FWW Wheelchair Training Does the Pt Use a Wheelchair?: No Stair Training Stairs (FIM): 1 #of Steps: 1 1 Step (curb) (QC): 3 (mod assist to step up and to control to lower) 4 Steps (QC): 88 12 Steps (QC): 88 Level of Assist: 3 Balance Picking up an Object (QC): 88 Mental Status/Objective Comprehension: 7 Expression: 7 Social Interaction: 7 Problem Solvin Memory: 7 ADL-Treatment Feedin Eating (QC): 6 Groomin (setup, w/c level at sink) Oral Hygiene (QC): 5 Bathin Bathing Location: L Arm, R Arm, L Upper Leg, R Upper Leg, R Lower Leg (including foot), Chest, Abdomen, Perineal Area Shower/Bathe Self (QC): 3 Upper Extremity Dressin (setup, w/c level) Upper Body Dressing (QC): 5 Lower Extremity Dressin (Help with getting pants on L foot, sit to stand. FWW) Lower Body Dressing (QC): 2 On/Off Footwear (QC): 2 Toiletin (CGA) Toileting Hygiene (QC): 2 Toilet/Commode Transfer: 4 (CGA to sit, min assist to stand) Toilet Transfer (QC): 3 Shower: 3 Assessment/Plan Assessment and Plan Assess & Plan/Chief Complaint Assessment: Left femur fracture open type s/p repair Ligament strain in left knee with left knee pain and restricted ROM Deep femoral artery vascular compromise Dilated Cardiomyopathy nonischemic type Dr Sandoval follows appreciate Dr. Erazo following while Dr. Sandoval is out of town Microcytic anemia Medication induced RTA Orthostatic hypotension BPPV Pre-renal azotemia due to low cardiac output Stress induced hyperglycemia Acid reflux Seasonal allergies Plan: Dressing and wound care ABG and BMP for RTA work-up if worsens CBC CMP prn Glucometer testing Review medication Assistance with Standing (1) Femur fracture (2) Hypotension Status: Acute Qualifiers: Hypotension type: orthostatic hypotension Qualified Codes: I95.1 - Orthostatic hypotension (3) History of pancreatitis Status: Chronic (4) GERD without esophagitis Status: Chronic (5) Postoperative anemia Status: Acute (6) DVT prophylaxis Status: Acute (7) Dilated cardiomyopathy Status: Chronic (8) Orthostasis Status: Acute CHITRA SIERRA DO Nov 12, 2018 12:59
[2018-11-12 17:06] VITALS: BP 108/73
--- NOTE | 2018-11-12 19:14 | NUR ---
bedside report received from DEBORA RUBI, assume care of pt
[2018-11-12 21:10] VITALS: BP 113/73
[2018-11-12] MEDS: LOSARTAN 50 MG (COZAAR) TAB PO SCH (21:11)
--- NOTE | 2018-11-12 21:13 | NUR ---
refused edward & Kurt, states had BM this evening
--- NOTE | 2018-11-12 21:25 | NUR ---
assessments & interventions completed, states they just changed dressing at 1630 can we wait until needs it
[2018-11-13 06:00] VITALS: BP 96/54
--- NOTE | 2018-11-13 07:14 | NUR ---
bedside report given to WILLY RUBI
[2018-11-13 08:26] VITALS: BP 111/75
[2018-11-13] MEDS: POLYETHYLENE GLYCOL 17 GM (MIRALAX) PACK PO SCH ×2 (08:28→20:47)
[2018-11-13] MEDS: CARVEDILOL 12.5 MG (COREG) TABLET PO SCH (08:28)
[2018-11-13] MEDS: ENOXAPARIN 40 MG/0.4 ML (LOVENOX) SYR SC SCH (08:28)
[2018-11-13] MEDS: SENNA W/DOCUSATE (SENOKOT S) TABLET PO SCH ×2 (08:28→20:47)
[2018-11-13] MEDS: ASPIRIN E.C. 81 MG (ECOTRIN) TAB PO SCH (08:28)
--- NOTE | 2018-11-13 11:37 | Cardiology Progress Note ---
Subjective Date Seen by Provider: Nov 13, 2018 Time Seen by Provider: 11:35 Subjective/Events-last exam Patient is in bed, feeling better, no new complaint, was borderline hypotensive Review of Systems General: No Chills, No Night Sweats, No Fatigue, No Malaise, No Appetite, No Other HEENT: No Head Aches, No Visual Changes, No Eye Pain, No Ear Pain, No Dysphasia, No Sinus Congestion, No Post Nasal Drip, No Sore Throat, No Other Pulmonary: No Dyspnea, No Cough, No Pleuritic Chest Pain, No Other Cardiovascular: No: Chest Pain, Palpitations, Orthopnea, Paroxysmal Noc. Dyspnea, Edema, Lt Headedness, Other Objective-Cardiology Exam Last Set of Vital Signs Vital Signs 11/13/18 11/13/18 11/13/18 06:00 08:26 09:43 Temp 99.2 Pulse 98 Resp 18 B/P (MAP) 111/75 (87) Pulse Ox 94 O2 Delivery Room Air Capillary Refill : Less Than 3 Seconds I&O Intake and Output 11/13/18 00:00 Intake Total 1420 ml Balance 1420 ml Intake Oral 1420 ml # Voids 3 General: Alert, Oriented X3, Cooperative, No Acute Distress HEENT: Atraumatic, PERRLA Neck: Supple, No JVD, No Thyromegaly Lungs: Clear to Auscultation, Normal Air Movement Heart: Regular Rate, Normal S1, Normal S2, No Murmurs Abdomen: Normal Bowel Sounds, Soft, No Tenderness, No Hepatosplenomegaly, No Masses Extremities: No Clubbing, No Cyanosis, Normal Pulses, Other (trace edema) Skin: No Rashes, No Breakdown, No Significant Lesion Neuro: Normal Speech, Normal Tone, Sensation Intact Psych/Mental Status: Mental Status NL, Mood NL A/P-Cardiology Admission Diagnosis Femur fracture CHF Dizziness HTN Assessment/Plan Open femur fracture occurred 11/06/18, s/p repair. Recovering slowly Dizziness/lightheadedness, mild occasional orthostatic dizziness, still borderline hypotensive, I will decrease coreg and monitor tolerance CHF, chronic compensated dilated cardiomyopathy of undetermined etiology. Echo of 01/28/17 is reported have shown diff hypokinesia of the LV, LVEF 30-35%, dilated LA, mod to severe MR, AoV sclerosis w/o stenosis, PASP approx 25 mmhg. Echocardiogram of July 05, 2018 showed 40-45%. Mild to mod hyokinesis of the interventricular septum. Grade 1 diastolic dysfunction. LA dilated. Mild MR. PASP approx 25-30mmHg. Maintained on Coreg 12.5mg BID and Losartan 50mg daily. Continue on current medications. History of intolerance to HELENA-I secondary to cough. Obesity with BMI approx 35 Quit smoking in 1984 GERD Sleep apnea - uses CPAP H/O Vertigo Clinical Quality Measures DVT/VTE Risk/Contraindication: Risk Factor Score Per Nursin RFS Level Per Nursing on Admit: 4+=Very High NIDHI PARKS MD Nov 13, 2018 11:37
--- NOTE | 2018-11-13 12:15 | PM&R Progress Note ---
Subjective HPI/CC On Admission Date Seen by Provider: Nov 13, 2018 Time Seen by Provider: 12:00 Chief complaint: Debility following open left femur fracture History of present illness: This is a 63-year-old white female clinic patient of Dr. Hurt at [facility] who presents to the inpatient rehab unit following an open left femur fracture when she was trying to put the camper on the trailer hitch when she became pinned in between the camper and the truck and sustained the injury. She had an uncomplicated repair at [facility] and now she presents for recovery in order to regain independence and return living at home and returning to work at the [employer] office in [facility]. She quit smoking many years ago and she sees cardiology Dr. Sandoval for nonischemic dilated cardiomyopathy of uncertain etiology and was at 10% on echocardiogram it is improved to 45% on the most recent echo July 2018. She also has a history of acute pancreatitis due to gallbladder disease status post cholecystectomy and occasional GERD. I reviewed labs from [facility] and I have ordered repeat tomorrow and she reports that her bowels are moving very well after multiple laxatives given prior to discharge at [facility]. She reports pain is tolerable takes hydrocodone and Tylenol with good results. Prior level of functioning was completely independent without the use of assistive devices and completely independent with ADLs. Barriers to returning home will include the need to ambulate at least with a walker to get around the house and be able to regain the ability to shower and perform activities of daily living in order to return home. She does have a recent onset of orthostatic hypotension and because of that I will provide a slower paced rehab process with 17/10 in order to assure she can be successful in this unit. I have consulted Dr. Erazo on-call for Dr. Sandoval and his help is much appreciated. Subjective/Events-last exam Much improved today Very grateful for the services that are provided here in inpatient rehabilitation she really could not go home at the state she was in Dr Erazo and I conferred and he has held the Coreg and Cozaar for the mild hyp otension Takes Lortab before therapy and relies on Tylenol the other times Thigh-high MARCIA hose maintained Minimal orthostasis noted but will monitor closely Appreciate cardiology management Had BM Blisters around the tape on incisions Conferred with RN Reviewed therapy notes Check meds and labs Review of Systems Musculoskeletal: leg pain Objective Exam Vital Signs Vital Signs Date Time Temp Pulse Resp B/P (MAP) Pulse Ox O2 Delivery O2 Flow Rate FiO2 11/13/18 09:43 Room Air 11/13/18 08:26 98 111/75 (87) 11/13/18 06:00 99.2 18 94 Capillary Refill : Less Than 3 Seconds General Appearance: No Apparent Distress, WD/WN, Chronically ill HEENT: PERRL/EOMI, Normal ENT Inspection, Pharynx Normal Neck: Full Range of Motion, Normal Inspection, Non Tender, Supple Respiratory: Chest Non Tender, Lungs Clear, Normal Breath Sounds, No Accessory Muscle Use, No Respiratory Distress Cardiovascular: Regular Rate, Rhythm, No Gallop, No JVD, No Murmur Gastrointestinal: Normal Bowel Sounds, Non Tender, Soft Rectal: Deferred Back: No CVA Tenderness Extremity: Normal Capillary Refill, Normal Inspection, Non Tender, No Calf Tenderness, Pedal Edema, Other (limited ROM left leg) Neurologic/Psychiatric: Alert, Oriented x3, No Motor/Sensory Deficits, Normal 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 FIM Transfers Therapy Code Descriptions/Definitions Functional [place] Measure: 0=Not Assessed/NA 4=Minimal Assistance 1=Total Assistance 5=Supervision or Setup 2=Maximal Assistance 6=Modified [place] 3=Moderate Assistance 7=Complete [place] Therapy Quality Codes: 6 Independent with activity with or without an assistive device 5 Patient requires set up or clean up by helper. Patient completes activity by themselves 4 Supervision or touching assist (CGA). [place] provide cues , steadying assist 3 The helper provides less than half the effort to complete the activity 2 The helper provides more than half the effort to complete the activity 1 Dependent. The helper does all the effort to complete an activity 7 Patient refused to complete or attempt activity 9 The patient did not perform the activity before the current illness or injury 88 Not attempted due to Medical conditions or safety concerns Transfers (B, C, W/C) (FIM): 4 Scootin Rollin Roll Left to Right (QC): 4 Supine to/from Sit: 4 Sit to/from Stand: 4 Sit to Lying (QC): 3 Sit to Stand (QC): 3 (mod assist with skilled cues for hand placement) Chair/[id number]-Zdyfz Xfer(QC): 4 Bed to/from Chair: 4 Car Transfer (QC): 3 Gait Training Does the Patient Walk?: Yes Gait (FIM): 1 Distance (FIM): 1=up to 49 ft (25ftx4) Distance: 10', 20' Walk 10 feet (QC): 4 Walk 50 ft with 2 Turns(QC): 88 (pt unable to walk this distance) Walk 150 ft (QC): 88 Walking 10ft/uneven surface-QC: 4 Gait Level of Assist: 4 Gait Persons Needed: 1 Gait Assistive Device: FWW Wheelchair Training Does the Pt Use a Wheelchair?: No Stair Training Stairs (FIM): 1 #of Steps: 1 1 Step (curb) (QC): 3 (mod assist to step up and to control to lower) 4 Steps (QC): 88 12 Steps (QC): 88 Level of Assist: 3 Balance Picking up an Object (QC): 88 Mental Status/Objective Comprehension: 7 Expression: 7 Social Interaction: 7 Problem Solvin Memory: 7 ADL-Treatment Feedin Eating (QC): 6 Groomin (setup, w/c level at sink) Oral Hygiene (QC): 5 Bathin Bathing Location: L Arm, R Arm, L Upper Leg, R Upper Leg, R Lower Leg (including foot), Chest, Abdomen, Perineal Area Shower/Bathe Self (QC): 3 Upper Extremity Dressin (setup, w/c level) Upper Body Dressing (QC): 5 Lower Extremity Dressin (Help with getting pants on L foot, sit to stand. FWW) Lower Body Dressing (QC): 2 On/Off Footwear (QC): 2 Toiletin (CGA) Toileting Hygiene (QC): 2 Toilet/Commode Transfer: 4 (CGA to sit, min assist to stand) Toilet Transfer (QC): 3 Shower: 3 Assessment/Plan Assessment and Plan Assess & Plan/Chief Complaint Assessment: Left femur fracture open type s/p repair Ligament strain in left knee with left knee pain and restricted ROM Deep femoral artery vascular compromise Dilated Cardiomyopathy nonischemic type Dr Sandoval follows appreciate Dr. Erazo following while Dr. Sandoval is out of town Microcytic anemia Medication induced RTA Orthostatic hypotension BPPV Pre-renal azotemia due to low cardiac output Stress induced hyperglycemia Acid reflux Seasonal allergies Plan: Dressing and wound care Hold Cozaar and Coreg CBC CMP prn Glucometer testing and monitor Reviewed medication Assistance with therapy until regains independence (1) Femur fracture (2) Hypotension Status: Acute Qualifiers: Hypotension type: orthostatic hypotension Qualified Codes: I95.1 - Orthostatic hypotension (3) History of pancreatitis Status: Chronic (4) GERD without esophagitis Status: Chronic (5) Postoperative anemia Status: Acute (6) DVT prophylaxis Status: Acute (7) Dilated cardiomyopathy Status: Chronic (8) Orthostasis Status: Acute CHITRA SIERRA DO Nov 13, 2018 12:15
[2018-11-13] MEDS: ACETAMINOPHEN 500 MG TAB (TYLENOL) PO PRN (13:51)
[2018-11-13 17:07] VITALS: BP 100/61
[2018-11-13 20:48] VITALS: BP 103/71
[2018-11-13] MEDS: CARVEDILOL 6.25 MG (COREG) TAB PO SCH (20:48)
--- NOTE | 2018-11-13 21:00 | NUR ---
PATIENT REFUSED SENNA AND MIRALAX . STATES HER BOWELS ARE REGULAR AND 'FAIRLY SOFT' . PATIENT REFUSES SCD, EDUCATION GIVEN AND ENCOURAGED TO FOLLOW MD ORDER, RIGHT TO REFUSE SUPPORTED. DENIES NEEDS OR C/O AT THIS TIME.
--- NOTE | 2018-11-14 04:07 | NUR ---
PATIENT UP TO BATHROOM, FWW, GAIT BELT FOR SAFETY, CONTACT GUARD. EVEN, STEADY GAIT. PATIENT MANEUVERED OWN CLOTHING AND BEKA CARE. INCISION DRESSING CHANGED AT THIS TIME. SEROUS DRAINAGE, MOD AMOUNT. DENIES C/O OR NEEDS AT THIS TIME. TO BED , CALL LIGHT IN REACH. CONT TO MONITOR.
[2018-11-14 06:50] VITALS: BP 107/70
[2018-11-14] MEDS: HYDROcodone/APAP 5 MG/325 MG (LORTAB) TAB PO PRN ×2 (07:06→20:46)
--- NOTE | 2018-11-14 07:58 | Occupational Ther Daily Note ---
OT Current Status-Daily Note Subjective Pt alert, lying in bed. Pt agrees to therapy. Pt states that she is in pain and wants a pain pill prior to starting therapy. Reported to nrsg and nrsg brought pain meds. Mental Status/Objective Patient Orientation: Person, Place, Time, Situation Therapy Code Descriptions/Definitions Functional [place] Measure: 0=Not Assessed/NA 4=Minimal Assistance 1=Total Assistance 5=Supervision or Setup 2=Maximal Assistance 6=Modified [place] 3=Moderate Assistance 7=Complete [place] ADL-Treatment Pt declines shower at this time. Pt agrees to change clothing and sponge bath. Pt was set up for sponge bath while sitting on EOB. Pt able to complete upper body dressing after set up by self. Lower body completed using AE after set up. Pt ambulated to bathroom and transferred to toilet using FWW with SBA. Completed hygiene after voiding and clothing manipulation with SBA. Pt stood at sink to completed grooming, SBA using FWW. After therapy, pt sitting in recliner with call light/phone in reach. All needs met in room. Therapy Code Descriptions/Definitions Functional [place] Measure: 0=Not Assessed/NA 4=Minimal Assistance 1=Total Assistance 5=Supervision or Setup 2=Maximal Assistance 6=Modified [place] 3=Moderate Assistance 7=Complete [place] Therapy Quality Codes: 6 Independent with activity with or without an assistive device 5 Patient requires set up or clean up by helper. Patient completes activity by themselves 4 Supervision or touching assist (CGA). [place] provide cues , steadying assist 3 The helper provides less than half the effort to complete the activity 2 The helper provides more than half the effort to complete the activity 1 Dependent. The helper does all the effort to complete an activity 7 Patient refused to complete or attempt activity 9 The patient did not perform the activity before the current illness or injury 88 Not attempted due to Medical conditions or safety concerns Grooming (FIM): 5 Oral Hygiene (QC): 4 Bathing (FIM): 5 Bathing Location: L Arm, R Arm, L Upper Leg, R Upper Leg, L Lower Leg (including foot) (LH sponge), R Lower Leg (including foot) (LH sponge), Chest, Abdomen, Buttocks, Perineal Area Shower/Bathe Self (QC): 4 Upper Body (FIM): 5 Upper Body Dressing (QC): 5 Lower Body Dressing (FIM): 5 Lower Body Dressing (QC): 4 On/Off Footwear (QC): 4 Toileting (FIM): 5 Toileting Hygiene (QC): 4 Transfers (B, C, W/C) (FIM): 5 Toilet/Commode Transfer (FIM): 5 Toilet Transfer (QC): 4 OT Short Term Goals Short Term Goals Time Frame: Nov 17, 2018 Eating(FIM): 7 Grooming(FIM): 5 Bathing(FIM): 4 Upper Body Dressing(FIM): 5 Lower Body Dressing(FIM): 4 Toileting(FIM): 4 Transfers (B,C,W/C) (FIM): 4 Toilet/Commode Transfer(FIM): 4 Shower Transfer(FIM): 4 Additional Short Term Goals: 1-Demonstrate ADL Tasks, 2-Verbalize Understanding, 3-ImproveStrength/[place] 1=Demonstrate adherence to instructed precautions during ADL tasks. 2=Patient will verbalize/demonstrate understanding of assistive devices/modifications for ADL. 3=Patient will improve strength/tolerance for activity to enable patient to perform ADL's. 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 2=Patient will verbalize/demonstrate understanding of assistive devices/modifications for ADL. 3=Patient will improve strength/tolerance for activity to enable patient to perform ADL's. OT Education/Plan Problem List/Assessment Assessment: Impaired Self-Care Skills Discharge Recommendations Plan/Recommendations: Continue POC Treatment Plan/Plan of Care Patient would benefit from OT for education, treatment and training to promote independence in ADL's, mobility, safety and/or upper extremity function for ADL's. Plan of Care: ADL Retraining, Functional Mobility, UE Funct Exercise/Act Treatment Duration: Nov 24, 2018 Frequency: At least 5 of 7 days/Wk (IRF) Estimated Hrs Per Day: 1.5 hours per day Agreement: Yes Rehab Potential: Good Time/GCodes Start Time: 07:00 Stop Time: 08:00 Total Time Billed (hr/min): 60 Billed Treatment Time 1 visit-ADL 4 (60 min) DAVINA RAMIREZ Nov 14, 2018 07:58
--- NOTE | 2018-11-14 08:12 | PM&R Progress Note ---
Subjective HPI/CC On Admission Date Seen by Provider: Nov 14, 2018 Time Seen by Provider: 08:15 Chief complaint: Debility following open left femur fracture History of present illness: This is a 63-year-old white female clinic patient of Dr. Hurt at [facility] who presents to the inpatient rehab unit following an open left femur fracture when she was trying to put the camper on the trailer hitch when she became pinned in between the camper and the truck and sustained the injury. She had an uncomplicated repair at [facility] and now she presents for recovery in order to regain independence and return living at home and returning to work at the [employer] office in [facility]. She quit smoking many years ago and she sees cardiology Dr. Sandoval for nonischemic dilated cardiomyopathy of uncertain etiology and was at 10% on echocardiogram it is improved to 45% on the most recent echo July 2018. She also has a history of acute pancreatitis due to gallbladder disease status post cholecystectomy and occasional GERD. I reviewed labs from [facility] and I have ordered repeat tomorrow and she reports that her bowels are moving very well after multiple laxatives given prior to discharge at [facility]. She reports pain is tolerable takes hydrocodone and Tylenol with good results. Prior level of functioning was completely independent without the use of assistive devices and completely independent with ADLs. Barriers to returning home will include the need to ambulate at least with a walker to get around the house and be able to regain the ability to shower and perform activities of daily living in order to return home. She does have a recent onset of orthostatic hypotension and because of that I will provide a slower paced rehab process with 17/10 in order to assure she can be successful in this unit. I have consulted Dr. Erazo on-call for Dr. Sandoval and his help is much appreciated. Subjective/Events-last exam Pain pill at night will be recommended because she didn't sleep well because of the pain Doesn't like to take pain medication but it may need to be necessary short term to aid in her recovery BP remains low so BP meds will continue to be held Appreciate cardiology consultation Conferred with RN Reviewed therapy notes Check meds and labs Review of Systems General: Fatigue Musculoskeletal: leg pain Objective Exam Vital Signs Vital Signs Date Time Temp Pulse Resp B/P (MAP) Pulse Ox O2 Delivery O2 Flow Rate FiO2 11/14/18 17:55 98.9 81 18 131/85 (100) 97 11/14/18 09:00 Room Air Capillary Refill : Less Than 3 Seconds General Appearance: No Apparent Distress, WD/WN, Chronically ill HEENT: PERRL/EOMI, Normal ENT Inspection, Pharynx Normal Neck: Full Range of Motion, Normal Inspection, Non Tender, Supple Respiratory: Chest Non Tender, Lungs Clear, Normal Breath Sounds, No Accessory Muscle Use, No Respiratory Distress Cardiovascular: Regular Rate, Rhythm, No Gallop, No JVD, No Murmur Gastrointestinal: Normal Bowel Sounds, Non Tender, Soft Rectal: Deferred Back: No CVA Tenderness Extremity: Normal Capillary Refill, Normal Inspection, Non Tender, No Calf Tenderness, Pedal Edema, Other (limited ROM left leg) Neurologic/Psychiatric: Alert, Oriented x3, No Motor/Sensory Deficits, Normal 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 FIM Transfers Therapy Code Descriptions/Definitions Functional [place] Measure: 0=Not Assessed/NA 4=Minimal Assistance 1=Total Assistance 5=Supervision or Setup 2=Maximal Assistance 6=Modified [place] 3=Moderate Assistance 7=Complete [place] Therapy Quality Codes: 6 Independent with activity with or without an assistive device 5 Patient requires set up or clean up by helper. Patient completes activity by themselves 4 Supervision or touching assist (CGA). [place] provide cues , steadying assist 3 The helper provides less than half the effort to complete the activity 2 The helper provides more than half the effort to complete the activity 1 Dependent. The helper does all the effort to complete an activity 7 Patient refused to complete or attempt activity 9 The patient did not perform the activity before the current illness or injury 88 Not attempted due to Medical conditions or safety concerns Transfers (B, C, W/C) (FIM): 4 Scootin Rollin Roll Left to Right (QC): 4 Supine to/from Sit: 4 Sit to/from Stand: 4 Sit to Lying (QC): 3 Sit to Stand (QC): 3 (mod assist with skilled cues for hand placement) Chair/Yfk-qs-Wbzel Xfer(QC): 4 Bed to/from Chair: 4 Car Transfer (QC): 3 Gait Training Does the Patient Walk?: Yes Gait (FIM): 1 Distance (FIM): 1=up to 49 ft (25ftx4) Distance: 10', 20' Walk 10 feet (QC): 4 Walk 50 ft with 2 Turns(QC): 88 (pt unable to walk this distance) Walk 150 ft (QC): 88 Walking 10ft/uneven surface-QC: 4 Gait Level of Assist: 4 Gait Persons Needed: 1 Gait Assistive Device: FWW Wheelchair Training Does the Pt Use a Wheelchair?: No Stair Training Stairs (FIM): 1 #of Steps: 1 1 Step (curb) (QC): 3 (mod assist to step up and to control to lower) 4 Steps (QC): 88 12 Steps (QC): 88 Level of Assist: 3 Balance Picking up an Object (QC): 88 Mental Status/Objective Comprehension: 7 Expression: 7 Social Interaction: 7 Problem Solvin Memory: 7 ADL-Treatment Feedin Eating (QC): 6 Groomin (setup, w/c level at sink) Oral Hygiene (QC): 5 Bathin Bathing Location: L Arm, R Arm, L Upper Leg, R Upper Leg, R Lower Leg (including foot), Chest, Abdomen, Perineal Area Shower/Bathe Self (QC): 3 Upper Extremity Dressin (setup, w/c level) Upper Body Dressing (QC): 5 Lower Extremity Dressin (Help with getting pants on L foot, sit to stand. FWW) Lower Body Dressing (QC): 2 On/Off Footwear (QC): 2 Toiletin (CGA) Toileting Hygiene (QC): 2 Toilet/Commode Transfer: 4 (CGA to sit, min assist to stand) Toilet Transfer (QC): 3 Shower: 3 Assessment/Plan Assessment and Plan Assess & Plan/Chief Complaint Assessment: Left femur fracture open type s/p repair Ligament strain in left knee with left knee pain and restricted ROM Deep femoral artery vascular compromise Dilated Cardiomyopathy nonischemic type Dr Sandoval follows appreciate Dr. Erazo following while Dr. Sandoval is out of town Microcytic anemia Medication induced RTA Orthostatic hypotension BPPV Pre-renal azotemia due to low cardiac output Stress induced hyperglycemia Acid reflux Seasonal allergies Plan: Dressing and wound care Hold Cozaar and Coreg CBC CMP prn Glucometer testing and monitor Reviewed medication Assistance with therapy until regains independence Appreciate Cardiology (1) Femur fracture (2) Hypotension Status: Acute Qualifiers: Hypotension type: orthostatic hypotension Qualified Codes: I95.1 - Orthostatic hypotension (3) History of pancreatitis Status: Chronic (4) GERD without esophagitis Status: Chronic (5) Postoperative anemia Status: Acute (6) DVT prophylaxis Status: Acute (7) Dilated cardiomyopathy Status: Chronic (8) Orthostasis Status: Acute CHITRA SIERRA DO Nov 14, 2018 08:11
[2018-11-14] MEDS: ASPIRIN E.C. 81 MG (ECOTRIN) TAB PO SCH (08:17)
[2018-11-14] MEDS: ENOXAPARIN 40 MG/0.4 ML (LOVENOX) SYR SC SCH (08:17)
[2018-11-14] MEDS: CARVEDILOL 6.25 MG (COREG) TAB PO SCH ×2 (08:17→20:45)
--- NOTE | 2018-11-14 08:27 | Cardiology Progress Note ---
Subjective Date Seen by Provider: Nov 14, 2018 Time Seen by Provider: 08:20 Subjective/Events-last exam Patient is sitting up in chair, no new complaints. Denies any further episode of dizziness. Denies any chest pain. Objective-Cardiology Exam Last Set of Vital Signs Vital Signs 11/14/18 06:50 Temp 98.0 Pulse 86 Resp 18 B/P (MAP) 107/70 (82) Pulse Ox 95 O2 Delivery Room Air Capillary Refill : Less Than 3 Seconds I&O Intake and Output 11/14/18 00:00 Intake Total 1320 ml Balance 1320 ml Intake Oral 1320 ml # Voids 4 # Bowel Movements 1 General: Alert, Oriented X3, Cooperative, No Acute Distress HEENT: Atraumatic, PERRLA Neck: Supple, No JVD, No Thyromegaly Lungs: Clear to Auscultation, Normal Air Movement Heart: Regular Rate, Normal S1, Normal S2, No Murmurs Abdomen: Normal Bowel Sounds, Soft, No Tenderness, No Hepatosplenomegaly, No Masses Extremities: No Clubbing, No Cyanosis, Normal Pulses, Other (trace edema) Skin: No Rashes, No Breakdown, No Significant Lesion Neuro: Normal Speech, Normal Tone, Sensation Intact Psych/Mental Status: Mental Status NL, Mood NL A/P-Cardiology Admission Diagnosis Femur fracture CHF Dizziness HTN Assessment/Plan Open femur fracture occurred 11/06/18, s/p repair. Recovering slowly Dizziness/lightheadedness, mild occasional orthostatic dizziness, reports improvement since decreasing Coreg. Continue to monitor. CHF, chronic compensated dilated cardiomyopathy of undetermined etiology. Echo of 01/28/17 is reported have shown diff hypokinesia of the LV, LVEF 30-35%, di lated LA, mod to severe MR, AoV sclerosis w/o stenosis, PASP approx 25 mmhg. Echocardiogram of July 05, 2018 showed 40-45%. Mild to mod hyokinesis of the interventricular septum. Grade 1 diastolic dysfunction. LA dilated. Mild MR. PASP approx 25-30mmHg. Maintained on Coreg 12.5mg BID and Losartan 50mg daily. Continue on current medications. History of intolerance to HELENA-I secondary to cough. Obesity with BMI approx 35 Quit smoking in 1984 GERD Sleep apnea - uses CPAP H/O Vertigo Clinical Quality Measures DVT/VTE Risk/Contraindication: Risk Factor Score Per Nursin RFS Level Per Nursing on Admit: 4+=Very High LUCRETIA CONTRERAS Nov 14, 2018 08:27
[2018-11-14] MEDS ORDERED: LOSARTAN 50 MG (COZAAR) TAB PO SCH ×2 (09:00→21:00)
[2018-11-14] MEDS: POLYETHYLENE GLYCOL 17 GM (MIRALAX) PACK PO SCH ×2 (09:00→20:52)
[2018-11-14] MEDS: SENNA W/DOCUSATE (SENOKOT S) TABLET PO SCH ×2 (09:00→20:46)
--- NOTE | 2018-11-14 10:09 | Physical Therapy Daily Note ---
PT Daily Note-Current Subjective Pt. states she feels she is making progress but has some left knee and hip pain, took pain meds already. Pain Numeric Pain Scale: 6 Location: Left Location Body Site: Knee Pain Description: Stabbing Mental Status Patient Orientation: Normal For Age Transfers Therapy Code Descriptions/Definitions Functional [place] Measure: 0=Not Assessed/NA 4=Minimal Assistance 1=Total Assistance 5=Supervision or Setup 2=Maximal Assistance 6=Modified [place] 3=Moderate Assistance 7=Complete [place] Therapy Quality Codes: 6 Independent with activity with or without an assistive device 5 Patient requires set up or clean up by helper. Patient completes activity by themselves 4 Supervision or touching assist (CGA). [place] provide cues , steadying assist 3 The helper provides less than half the effort to complete the activity 2 The helper provides more than half the effort to complete the activity 1 Dependent. The helper does all the effort to complete an activity 7 Patient refused to complete or attempt activity 9 The patient did not perform the activity before the current illness or injury 88 Not attempted due to Medical conditions or safety concerns Transfers (B, C, W/C) (FIM): 5 Scootin Rollin Supine to/from Sit: 6 Sit to/from Stand: 6 Bed to/from Chair: 5 Weight Bearing Right Lower Extremity: Right Full Weight Bearing Left Lower Extremity: Left Weight Bearing/Tolerated Gait Training Does the Patient Walk?: Yes Gait (FIM): 3 Distance (FIM): 3=150 ft (150x2) Gait Level of Assist: 5 Gait Persons Needed: 1 Gait Assistive Device: FWW education and instruction in step length and extension in left hip. Exercises Supine Ex: Ankle pumps, Quad Set, Rolling, Glut sets, Heel Slides, Short Arc Quads, Scooting, Straight leg raise, Hip abd/add Supine Reps: 15 Seated Therapy Exercises: Ankle pumps, Sit to stand, Long arc quads, Hip flexion Seated Reps: 15 NuStep Minutes: 8 NuStep Workload: 5 Treatments pt. with limited knee flexion to 40 to 45 degrees , hip extension limited as well, educated pt. 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 PT Longterm Goals Time Frame: Nov 24, 2018 Transfers (B,C,W/C) (FIM): 7 Sit to Lying (QC): 6 Lying-Sitting on Side/Bed(QC): 6 Sit to Stand (QC): 6 Rollin Roll Left to Right (QC): 6 Chair/[id number]-[id number] Xfer(QC): 6 Car Transfer (QC): 6 Does the Patient Walk: Yes Gait (FIM): 6 Gait distance (FIM): 3=150 ft Walk 10 feet (QC): 6 Walk 10ft-Uneven Surface(QC): 6 Walk 50ft with 2 Turns (QC): 6 Walk 150 ft (QC): 6 Gait Assistive Device: FWW Does the Pt use WC or Scooter?: No Stairs (FIM): 5 (household) # of Steps: 4 1 Step (curb) (QC): 6 4 Steps (QC): 6 12 Steps (QC): 88 Stairs Level Of Assist: 6 Picking up an Object (QC): 88 PT Plan Treatment/Plan Treatment Plan: Continue Plan of Care Treatment Plan: Bed Mobility, Education, Functional Activity Lef[place], Functional Strength, Group Therapy, Gait, Safety, Therapeutic Exercise, Transfers Treatment Duration: Nov 24, 2018 Frequency: At least 5 of 7 days/Wk (IRF) Estimated Hrs Per Day: 1.5 hours per day Patient and/or Family Agrees t: Yes Safety Risks/Education Patient Education: Gait Training, Transfer Techniques, Correct Positioning, Disease Process, Safety Issues Teaching Recipient: Patient Teaching Methods: Demonstration, Discussion Response to Teaching: Verbalize Understanding, Return Demonstration, Reinforcement Needed Time/GCodes Time In: 900 Time Out: 1000 Total Billed Treatment Time: 60 Total Billed Treatment 1,EX30m,FA10m,GT20m G Codes Necessary: No CURT HERNDON DIGITIZER Nov 14, 2018 10:09
--- NOTE | 2018-11-14 14:55 | Therapy Group Daily Note ---
Therapy Daily Group Note Patient Education Topic Other List Below (transfers (bed/car)) Exercises LE Seated Exercise, UE Exercise Session Ratio (pt:therapist): 3:1 Goal of Session: Education on ARU Expectations, UE/LE Strengthing, Safety with Transfers Goal Met for this Session: Yes Pt Benefit of Group: Contributions to Others, Increased Functional Safety, Increased Functional Strength, Improved Cognition, Recognition of Peers, Socialization Other/Notes Pt ambulated using FWW with CGA to ARU commons area for OT/PT group. Group consisted of introductions (name, place living, hottest day memory), socialization, seated UE/LE exercises, bed transfers/mobility, car transfers and description of ARU. Pt introduced self appropriately and actively listened to peers. Pt rolled dice for amount of reps needed for seated exercises that are led by pt. Pt verbalized understanding of educational topics by own personal stories and strategies. After therapy, pt sitting in recliner with call light/phone in reach. All needs met in room. Start Time: 13:00 Stop Time: 14:05 Total Billed Treatment Time: 65 Total Billed Treatment 1-GRP DAVINA RAMIREZ Nov 14, 2018 14:55
[2018-11-14 17:55] VITALS: BP 131/85
--- NOTE | 2018-11-14 19:17 | NUR ---
bedside report received from SHRUTI RUBI, assume care of pt
[2018-11-14 20:30] VITALS: BP 126/80
--- NOTE | 2018-11-14 20:46 | NUR ---
c/o lt hip pain level 5/10 on numeric scale, Lortab 5 1 tab po given, took Senokot 1 tab & refused miralax
--- NOTE | 2018-11-14 21:00 | NUR ---
assessments & interventions completed, see assessments & interventions, remains up in the chair
--- NOTE | 2018-11-14 21:30 | NUR ---
rates pain at 2/10 on numeric scale
--- NOTE | 2018-11-14 22:20 | NUR ---
back to bed with 1 person assist & walker, refused scd, forest hose off for night
[2018-11-15 06:00] VITALS: BP 107/70
--- NOTE | 2018-11-15 07:20 | NUR ---
bedside report given to SHRUTI RUBI
--- NOTE | 2018-11-15 08:45 | PM&R Progress Note ---
Subjective HPI/CC On Admission Date Seen by Provider: Nov 15, 2018 Time Seen by Provider: 08:30 Chief complaint: Debility following open left femur fracture History of present illness: This is a 63-year-old white female clinic patient of Dr. Hurt at [facility] who presents to the inpatient rehab unit following an open left femur fracture when she was trying to put the camper on the trailer hitch when she became pinned in between the camper and the truck and sustained the injury. She had an uncomplicated repair at [facility] and now she presents for recovery in order to regain independence and return living at home and returning to work at the [employer] office in [place]. She quit smoking many years ago and she sees cardiology Dr. Sandoval for nonischemic dilated cardiomyopathy of uncertain etiology and was at 10% on echocardiogram it is improved to 45% on the most recent echo July 2018. She also has a history of acute pancreatitis due to gallbladder disease status post cholecystectomy and occasional GERD. I reviewed labs from [facility] and I have ordered repeat tomorrow and she reports that her bowels are moving very well after multiple laxatives given prior to discharge at [facility]. She reports pain is tolerable takes hydrocodone and Tylenol with good results. Prior level of functioning was completely independent without the use of assistive devices and completely independent with ADLs. Barriers to returning home will include the need to ambulate at least with a walker to get around the house and be able to regain the ability to shower and perform activities of daily living in order to return home. She does have a recent onset of orthostatic hypotension and because of that I will provide a slower paced rehab process with 17/10 in order to assure she can be successful in this unit. I have consulted Dr. Erazo on-call for Dr. Sandoval and his help is much appreciated. Subjective/Events-last exam Improved drainage of the incision sites. Pain is well controlled. Took pain pill last night and really rested well. Working with therapy. Regaining independence in her ADLs. Denies any chest pain or SOB. Orthostatic hypotension improved. Checked meds and labs. Appreciate cardiology consultation Conferred with RN Reviewed therapy notes Check meds and labs Review of Systems General: Fatigue Musculoskeletal: leg pain Objective Exam Vital Signs Vital Signs Date Time Temp Pulse Resp B/P (MAP) Pulse Ox O2 Delivery O2 Flow Rate FiO2 11/15/18 17:07 99.0 73 18 126/80 (95) 96 Room Air Capillary Refill : Less Than 3 Seconds General Appearance: No Apparent Distress, WD/WN, Chronically ill HEENT: PERRL/EOMI, Normal ENT Inspection, Pharynx Normal Neck: Full Range of Motion, Normal Inspection, Non Tender, Supple Respiratory: Chest Non Tender, Lungs Clear, Normal Breath Sounds, No Accessory Muscle Use, No Respiratory Distress Cardiovascular: Regular Rate, Rhythm, No Gallop, No JVD, No Murmur Gastrointestinal: Normal Bowel Sounds, Non Tender, Soft Rectal: Deferred Back: No CVA Tenderness Extremity: Normal Capillary Refill, Normal Inspection, Non Tender, No Calf Tenderness, Pedal Edema, Other (limited ROM left leg) Neurologic/Psychiatric: Alert, Oriented x3, No Motor/Sensory Deficits, Normal Mood/Affect, senior engineering tech II-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 FIM Transfers Therapy Code Descriptions/Definitions Functional [place] Measure: 0=Not Assessed/NA 4=Minimal Assistance 1=Total Assistance 5=Supervision or Setup 2=Maximal Assistance 6=Modified [place] 3=Moderate Assistance 7=Complete [place] Therapy Quality Codes: 6 Independent with activity with or without an assistive device 5 Patient requires set up or clean up by helper. Patient completes activity by themselves 4 Supervision or touching assist (CGA). [place] provide cues , steadying assist 3 The helper provides less than half the effort to complete the activity 2 The helper provides more than half the effort to complete the activity 1 Dependent. The helper does all the effort to complete an activity 7 Patient refused to complete or attempt activity 9 The patient did not perform the activity before the current illness or injury 88 Not attempted due to Medical conditions or safety concerns Transfers (B, C, W/C) (FIM): 5 Scootin Rollin Roll Left to Right (QC): 4 Supine to/from Sit: 6 Sit to/from Stand: 6 Sit to Lying (QC): 3 Sit to Stand (QC): 3 (mod assist with skilled cues for hand placement) Chair/Dlp-df-Wdnxr Xfer(QC): 4 Bed to/from Chair: 5 Car Transfer (QC): 3 Gait Training Does the Patient Walk?: Yes Gait (FIM): 3 Distance (FIM): 3=150 ft (150x2) Distance: 10', 20' Walk 10 feet (QC): 4 Walk 50 ft with 2 Turns(QC): 88 (pt unable to walk this distance) Walk 150 ft (QC): 88 Walking 10ft/uneven surface-QC: 4 Gait Level of Assist: 5 Gait Persons Needed: 1 Gait Assistive Device: FWW Wheelchair Training Does the Pt Use a Wheelchair?: No Stair Training Stairs (FIM): 1 #of Steps: 1 1 Step (curb) (QC): 3 (mod assist to step up and to control to lower) 4 Steps (QC): 88 12 Steps (QC): 88 Level of Assist: 3 Balance Picking up an Object (QC): 88 Mental Status/Objective Comprehension: 7 Expression: 7 Social Interaction: 7 Problem Solvin Memory: 7 ADL-Treatment Feedin Eating (QC): 6 Groomin Oral Hygiene (QC): 4 Bathin Bathing Location: L Arm, R Arm, L Upper Leg, R Upper Leg, L Lower Leg (including foot) (LH sponge), R Lower Leg (including foot) (LH sponge), Chest, Abdomen, Buttocks, Perineal Area Shower/Bathe Self (QC): 4 Upper Extremity Dressin Upper Body Dressing (QC): 5 Lower Extremity Dressin Lower Body Dressing (QC): 4 On/Off Footwear (QC): 4 Toiletin Toileting Hygiene (QC): 4 Toilet/Commode Transfer: 5 Toilet Transfer (QC): 4 Shower: 3 Assessment/Plan Assessment and Plan Assess & Plan/Chief Complaint Assessment: Left femur fracture open type s/p repair Ligament strain in left knee with left knee pain and restricted ROM Deep femoral artery vascular compromise Dilated Cardiomyopathy nonischemic type Dr Sandoval follows appreciate Dr. Erazo following while Dr. Sandoval is out of town Microcytic anemia Medication induced RTA Orthostatic hypotension BPPV Pre-renal azotemia due to low cardiac output Stress induced hyperglycemia Acid reflux Seasonal allergies MARIO on CPAP Plan: Dressing and wound care Hold Cozaar and Coreg CBC CMP prn Glucometer testing and monitor Reviewed medication Assistance with therapy until regains independence Appreciate Cardiology Maintain CPAP (1) Femur fracture (2) Hypotension Status: Acute Qualifiers: Hypotension type: orthostatic hypotension Qualified Codes: I95.1 - Orthostatic hypotension (3) History of pancreatitis Status: Chronic (4) GERD without esophagitis Status: Chronic (5) Postoperative anemia Status: Acute (6) DVT prophylaxis Status: Acute (7) Dilated cardiomyopathy Status: Chronic (8) Orthostasis Status: Acute (9) MARIO on CPAP Status: Chronic CHITRA SIERRA DO Nov 15, 2018 08:45
[2018-11-15] MEDS: POLYETHYLENE GLYCOL 17 GM (MIRALAX) PACK PO SCH ×2 (09:00→20:58)
[2018-11-15] MEDS: CARVEDILOL 6.25 MG (COREG) TAB PO SCH ×2 (09:00→20:58)
[2018-11-15] MEDS: SENNA W/DOCUSATE (SENOKOT S) TABLET PO SCH ×2 (09:00→20:58)
--- NOTE | 2018-11-15 09:29 | Progress Note - Cardiology ---
Cardiology SOAP Progress Note Subjective: Sitting up in chair at the bedside. States since the reduction of her Coreg the dizziness is better, but still has occ episodes with position changes. No c/o CP, palpitations, syncope or near syncope. Objective: I&O/Vital Signs 11/15/18 11/15/18 11/15/18 06:00 09:00 09:32 Temp 99.6 Pulse 86 94 Resp 16 B/P (MAP) 107/70 (82) 92/61 (71) Pulse Ox 95 O2 Delivery Room Air Room Air 11/15/18 00:00 Intake Total 1000 ml Balance 1000 ml Weight (Pounds): 202 Weight (Ounces): 1.6 Weight (Calculated Kilograms): 91.464120 Constitutional: AAO x 3, well-developed, well-nourished Respiratory: No accessory muscle use, No respiratory distress; chest expansion is symmetric, chest is bilaterally symmetric Cardiovascular: regular rate-rhythm; No JVD; S1 and S2 Gastrointestional: No tender; soft, round, audible bowel sounds Extremities: no lower extremity edema bilateral Neurologic/Psychiatric: grossly intact Skin: warm/dry; No rash on exposed areas, No ulcerations on exposed areas A/P: Assessment: Open femur fracture occurred 11/06/18, s/p repair. No syncope Orthostatic hypotension - improved following reduction of BB, but not resolved Chronic systolic CHF - clinically compensated NICM - LVEF 40-45% per echo of 07-05-18 Normal coronary arteries. Mild MR. per cardiac cath of 02-09-17 Echocardiogram of July 05, 2018 showed 40-45%. Mild to mod hyokinesis of the interventricular septum. Grade 1 diastolic dysfunction. LA dilated. Mild MR. PASP approx 25-30mmHg. Previous echo of 01/28/17 is reported have shown diff hypokinesia of the LV, LVEF 30-35% History of intolerance to HELNEA-I secondary to cough. Obesity with BMI approx 37 Quit smoking in 1984 GERD Sleep apnea - uses CPAP H/O Vertigo Plan: Overall she is feeling better, but continues to report episodes of dizziness with position changes - will reduce Losartan to 25mg daily Monitor lab Physician Assessment Physician Assessment Postural dizziness improving; no cp or palp or syncope. Gen malaise present Lungs: good bilat air entry Cor: reg Ext: no c/c/e A&R * As documented in our note above that I updated (italics) and as noted below * Monitor labs * I spoke with her and answered questions MARCO NATHAN APPLICATION PENETRATION TESTER Nov 15, 2018 09:28 IGNACIO CAN MD [facility] Nov 15, 2018 12:16
[2018-11-15 09:32] VITALS: BP 92/61
[2018-11-15] MEDS: ASPIRIN E.C. 81 MG (ECOTRIN) TAB PO SCH (09:33)
[2018-11-15] MEDS: ENOXAPARIN 40 MG/0.4 ML (LOVENOX) SYR SC SCH (09:34)
[2018-11-15] MEDS: HYDROcodone/APAP 5 MG/325 MG (LORTAB) TAB PO PRN ×2 (09:34→20:58)
--- NOTE | 2018-11-15 11:55 | Occupational Ther Daily Note ---
OT Current Status-Daily Note Subjective Pt in bed, agrees to treatment. Pt reports 3/10 pain in left LE. Mental Status/Objective Therapy Code Descriptions/Definitions Functional [place] Measure: 0=Not Assessed/NA 4=Minimal Assistance 1=Total Assistance 5=Supervision or Setup 2=Maximal Assistance 6=Modified [place] 3=Moderate Assistance 7=Complete [place] ADL-Treatment Supine to sit without assist. Gait to restroom with FWW, no LOB noted. Pt transferred to walk in shower with SBA. Doffed shirt without assist. Pt doffed lower body clothing with SBA using adaptive equipment. Seated bathing completed using hand held shower and long handled sponge. Pt able to wash all areas. Don pullover shirt with set up. Pt required assist to don MARCIA hose, but was then able to don lower body clothing with SBA using adaptive equipment. Pt stood at sink to dry/comb hair and brush teeth with SBA. Therapy Code Descriptions/Definitions Functional [place] Measure: 0=Not Assessed/NA 4=Minimal Assistance 1=Total Assistance 5=Supervision or Setup 2=Maximal Assistance 6=Modified [place] 3=Moderate Assistance 7=Complete [place] Therapy Quality Codes: 6 Independent with activity with or without an assistive device 5 Patient requires set up or clean up by helper. Patient completes activity by themselves 4 Supervision or touching assist (CGA). [place] provide cues , steadying assist 3 The helper provides less than half the effort to complete the activity 2 The helper provides more than half the effort to complete the activity 1 Dependent. The helper does all the effort to complete an activity 7 Patient refused to complete or attempt activity 9 The patient did not perform the activity before the current illness or injury 88 Not attempted due to Medical conditions or safety concerns Grooming (FIM): 5 Bathing (FIM): 5 Shower/Bathe Self (QC): 4 Upper Body (FIM): 5 Upper Body Dressing (QC): 5 Lower Body Dressing (FIM): 5 Lower Body Dressing (QC): 4 On/Off Footwear (QC): 5 Shower Transfer(FIM): 5 Other Treatment Pt completed bilateral UE exercises to increase strength needed for ADLs and transfers. Pt performed shoulder flexion, abduction, biceps curls, and triceps extension exercises x10 reps with moderate resistance theraband. Rest breaks taken between exercises. Skilled cues for proper exercise technique. Pt sitting in chair with needs met after session. OT Short Term Goals Short Term Goals Time Frame: Nov 17, 2018 Eating(FIM): 7 Grooming(FIM): 5 Bathing(FIM): 4 Upper Body Dressing(FIM): 5 Lower Body Dressing(FIM): 4 Toileting(FIM): 4 Transfers (B,C,W/C) (FIM): 4 Toilet/Commode Transfer(FIM): 4 Shower Transfer(FIM): 4 Additional Short Term Goals: 1-Demonstrate ADL Tasks, 2-Verbalize Understanding, 3-ImproveStrength/[place]ef[place] 1=Demonstrate adherence to instructed precautions during ADL tasks. 2=Patient will verbalize/demonstrate understanding of assistive devices/modifications for ADL. 3=Patient will improve strength/tolerance for activity to enable patient to perform ADL's. OT Senior Care Goals Systematic Theology Professor Goals Time Frame: Nov 24, 2018 Eating (FIM): 7 Eating (QC): 6 Groomin Oral Hygiene (QC): 6 Bathing(FIM): 5 Shower/Bathe Self (QC): 5 Upper Body Dressing(FIM): 6 Upper Body Dressing (QC): 6 Lower Body Dressing(FIM): 6 Lower Body Dressing (QC): 6 On/Off Footwear (QC): 6 Toileting(FIM): 6 Toileting Hygiene (QC): 6 Transfers (B,C,W/C) (FIM): 6 Toilet/Commode Transfer(FIM): 6 Toilet/Commode Transfer (QC): 6 Shower Transfer(FIM): 6 Additional Goals: 1-Demonstrate ADL Tasks, 2-Verbalize Understanding, 3- ImproveStrength/Lefty 1=Demonstrate adherence to instructed precautions during ADL tasks. 2=Patient will verbalize/demonstrate understanding of assistive devices/modifications for ADL. 3=Patient will improve strength/tolerance for activity to enable patient to perform ADL's. OT Education/Plan Discharge Recommendations Plan/Recommendations: Continue POC Treatment Plan/Plan of Care Patient would benefit from OT for education, treatment and training to promote independence in ADL's, mobility, safety and/or upper extremity function for ADL's. Plan of Care: ADL Retraining, Functional Mobility, UE Funct Exercise/Act Treatment Duration: Nov 24, 2018 Frequency: At least 5 of 7 days/Wk (IRF) Estimated Hrs Per Day: 1.5 hours per day Agreement: Yes Rehab Potential: Good Time/GCodes Start Time: 08:00 Stop Time: 09:30 Total Time Billed (hr/min): 90 Billed Treatment Time 1 visit, ADLx4(65minutes), EXx2(25minutes) JASMYNE LEE OT Nov 15, 2018 11:55
--- NOTE | 2018-11-15 12:13 | Physical Therapy Daily Note ---
PT Daily Note-Current Subjective Pt sitting in lift chair upon arrival. Pt agrees to PT. Pain Numeric Pain Scale: 4 Location: Left Location Body Site: Thigh Pain Description: Ache, Tightness Mental Status Patient Orientation: Person, Place, Time, Situation Transfers Therapy Code Descriptions/Definitions Functional [place] Measure: 0=Not Assessed/NA 4=Minimal Assistance 1=Total Assistance 5=Supervision or Setup 2=Maximal Assistance 6=Modified [place] 3=Moderate Assistance 7=Complete [place] Therapy Quality Codes: 6 Independent with activity with or without an assistive device 5 Patient requires set up or clean up by helper. Patient completes activity by themselves 4 Supervision or touching assist (CGA). [place] provide cues , steadying assist 3 The helper provides less than half the effort to complete the activity 2 The helper provides more than half the effort to complete the activity 1 Dependent. The helper does all the effort to complete an activity 7 Patient refused to complete or attempt activity 9 The patient did not perform the activity before the current illness or injury 88 Not attempted due to Medical conditions or safety concerns Scootin Sit to/from Stand: 4 Sit to Stand (QC): 4 Weight Bearing Right Lower Extremity: Right Full Weight Bearing Left Lower Extremity: Left Weight Bearing/Tolerated Gait Training Does the Patient Walk?: Yes Gait (FIM): 5 Distance (FIM): 3=150 ft Distance: 150' Walk 10 feet (QC): 5 Walk 50 ft with 2 Turns(QC): 5 Walk 150 ft (QC): 5 Gait Level of Assist: 5 Gait Persons Needed: 1 Gait Assistive Device: FWW Pt walks with slow lucho, slightly antalgic. Wheelchair Training Does the Pt Use a Wheelchair?: No Exercises Supine Ex: Rolling, Heel Slides Supine Reps: 15 NuStep Minutes: 14 NuStep Workload: 4 Treatments Pt transfers from lift chair to standing and ambulates using FWW in hallway. Pt uses NuStep for 14m at WL 4 followed by short RB. Pt transfers to elevated T herapy mat to practice transfer at home bed height as well as laying Supine for HS to flex B knees as much as possible. Pt returns to room. SALES FLOOR ASSOCIATE and pt discuss pain management at hospital and after D/C. Pt asks progress of D/C from ARU and continued Therapy options after D/C. Pt resting at end of tx with all needs met, call light in hand. Hydrology Technician visiting with pt at end of tx. Assessment Current Status: Good Progress Pt is tolerating WB on L LE as well as flexing L knee more each day. PT Short Term Goals Short Term Goals Time Frame: Nov 17, 2018 Transfers (B,C,W/C) (FIM): 4 Gait (FIM): 4 PT Mechanical Specialist Goals Mechanical Specialist Goals PT Mechanical Specialist Goals Time Frame: Nov 24, 2018 Transfers (B,C,W/C) (FIM): 7 Sit to Lying (QC): 6 Lying-Sitting on Side/Bed(QC): 6 Sit to Stand (QC): 6 Rollin Roll Left to Right (QC): 6 Chair/Uqj-cz-Klgxj Xfer(QC): 6 Car Transfer (QC): 6 Does the Patient Walk: Yes Gait (FIM): 6 Gait distance (FIM): 3=150 ft Walk 10 feet (QC): 6 Walk 10ft-Uneven Surface(QC): 6 Walk 50ft with 2 Turns (QC): 6 Walk 150 ft (QC): 6 Gait Assistive Device: FWW Does the Pt use WC or Scooter?: No Stairs (FIM): 5 (household) # of Steps: 4 1 Step (curb) (QC): 6 4 Steps (QC): 6 12 Steps (QC): 88 Stairs Level Of Assist: 6 Picking up an Object (QC): 88 PT Plan Problem List Problem List: Activity Tolerance, Functional Strength, Gait, Transfer Treatment/Plan Treatment Plan: Continue Plan of Care Treatment Plan: Bed Mobility, Education, Functional Activity Lefty, Functional Strength, Group Therapy, Gait, Safety, Therapeutic Exercise, Transfers Treatment Duration: Nov 24, 2018 Frequency: At least 5 of 7 days/Wk (IRF) Estimated Hrs Per Day: 1.5 hours per day Patient and/or Family Agrees t: Yes Safety Risks/Education Patient Education: Gait Training, Transfer Techniques, Correct Positioning, Safety Issues Teaching Recipient: Patient Teaching Methods: Discussion Response to Teaching: Verbalize Understanding Time/GCodes Time In: 1100 Time Out: 1200 Total Billed Treatment Time: 60 Total Billed Treatment 1, GT (15m), EX x2 (30m) & FA (15m) G Codes Necessary: No GRISELDA DRIVER SALES FLOOR ASSOCIATE Nov 15, 2018 12:13
--- NOTE | 2018-11-15 15:02 | Physical Therapy Daily Note ---
PT Daily Note-Current Subjective Pt asleep in lift chair upon arrival. Pt agrees to PT. Pain Numeric Pain Scale: 5-Moderate Pain Location: Left Location Body Site: Knee Pain Description: Ache, Tightness Mental Status Patient Orientation: Person, Place, Time, Situation Transfers Therapy Code Descriptions/Definitions Functional [place] Measure: 0=Not Assessed/NA 4=Minimal Assistance 1=Total Assistance 5=Supervision or Setup 2=Maximal Assistance 6=Modified [place] 3=Moderate Assistance 7=Complete [place] Therapy Quality Codes: 6 Independent with activity with or without an assistive device 5 Patient requires set up or clean up by helper. Patient completes activity by themselves 4 Supervision or touching assist (CGA). [place] provide cues , steadying assist 3 The helper provides less than half the effort to complete the activity 2 The helper provides more than half the effort to complete the activity 1 Dependent. The helper does all the effort to complete an activity 7 Patient refused to complete or attempt activity 9 The patient did not perform the activity before the current illness or injury 88 Not attempted due to Medical conditions or safety concerns Scootin Sit to/from Stand: 5 Sit to Stand (QC): 5 Weight Bearing Right Lower Extremity: Right Full Weight Bearing Left Lower Extremity: Left Weight Bearing/Tolerated Gait Training Does the Patient Walk?: Yes Gait (FIM): 5 Distance (FIM): 3=150 ft Distance: 150' Walk 10 feet (QC): 5 Walk 50 ft with 2 Turns(QC): 5 Walk 150 ft (QC): 5 Gait Level of Assist: 5 Gait Persons Needed: 1 Gait Assistive Device: FWW Exercises Seated Therapy Exercises: Ankle pumps, Long arc quads, Kicking activity, Hamstring Curls, Hip abd/add Seated Reps: 20 Treatments Pt completes Seated EX in lift chair before transferring to standing. Pt ambulates in Therapy Commons before returning to lift chair to rest. Pt has all needs met including ice pack and call light. Assessment Current Status: Good Progress Pt tolerates tx well and continues to work in flexion of B knees. PT Short Term Goals Short Term Goals Time Frame: Nov 17, 2018 Transfers (B,C,W/C) (FIM): 4 Gait (FIM): 4 PT Fci Goals Fci Goals PT Cartridge Loader Goals Time Frame: Nov 24, 2018 Transfers (B,C,W/C) (FIM): 7 Sit to Lying (QC): 6 Lying-Sitting on Side/Bed(QC): 6 Sit to Stand (QC): 6 Rollin Roll Left to Right (QC): 6 Chair/Ayb-rw-Vtljk Xfer(QC): 6 Car Transfer (QC): 6 Does the Patient Walk: Yes Gait (FIM): 6 Gait distance (FIM): 3=150 ft Walk 10 feet (QC): 6 Walk 10ft-Uneven Surface(QC): 6 Walk 50ft with 2 Turns (QC): 6 Walk 150 ft (QC): 6 Gait Assistive Device: FWW Does the Pt use WC or Scooter?: No Stairs (FIM): 5 (household) # of Steps: 4 1 Step (curb) (QC): 6 4 Steps (QC): 6 12 Steps (QC): 88 Stairs Level Of Assist: 6 Picking up an Object (QC): 88 PT Plan Problem List Problem List: Activity Tolerance, Functional Strength Treatment/Plan Treatment Plan: Continue Plan of Care Treatment Plan: Bed Mobility, Education, Functional Activity [place], Functional Strength, Group Therapy, Gait, Safety, Therapeutic Exercise, Transfers Treatment Duration: Nov 24, 2018 Frequency: At least 5 of 7 days/Wk (IRF) Estimated Hrs Per Day: 1.5 hours per day Patient and/or Family Agrees t: Yes Safety Risks/Education Patient Education: Gait Training, Transfer Techniques, Correct Positioning, Safety Issues Teaching Recipient: Patient Teaching Methods: Discussion Response to Teaching: Verbalize Understanding Time/GCodes Time In: 1345 Time Out: 1415 Total Billed Treatment 1, GT (10m) & EX (20m) G Codes Necessary: GRISELDA [place] PTA Nov 15, 2018 15:02
[2018-11-15] MEDS: ACETAMINOPHEN 500 MG TAB (TYLENOL) PO PRN (15:08)
[2018-11-15 17:07] VITALS: BP 126/80
[2018-11-15 20:50] VITALS: BP 115/80
[2018-11-15] MEDS: LOSARTAN 25 MG (COZAAR) TAB PO SCH (20:57)
[2018-11-16 05:41] LABS: MEAN PLATELET VOLUME 9.2 FL (7.4-10.4); RED CELL DISTRIBUTION WIDTH 22.1 % (10.0-14.5); WHITE BLOOD COUNT 13.9 10^3/uL (4.3-11.0)
[2018-11-16 05:50] VITALS: BP 125/65
[2018-11-16 06:06] LABS: BUN/CREATININE RATIO 31; CALCIUM 9.3 MG/DL (8.5-10.1); CARBON DIOXIDE 25 MMOL/L (21-32); CHLORIDE 101 MMOL/L (98-107); CREATININE SERUM 0.64 MG/DL (0.60-1.30); GFR ESTIMATED > 60; GLUCOSE 88 MG/DL (70-105); MAGNESIUM 2.1 MG/DL (1.6-2.4); POTASSIUM 4.6 MMOL/L (3.6-5.0); SODIUM 135 MMOL/L (135-145)
--- NOTE | 2018-11-16 07:21 | Occupational Ther Daily Note ---
OT Current Status-Daily Note Subjective Pt was in bathroom prior to OT arrival. Pt asked to brush teeth before OT session. Mental Status/Objective Patient Orientation: Person, Place, Time, Situation Therapy Code Descriptions/Definitions Functional [place] Measure: 0=Not Assessed/NA 4=Minimal Assistance 1=Total Assistance 5=Supervision or Setup 2=Maximal Assistance 6=Modified [place] 3=Moderate Assistance 7=Complete [place] Comprehension(FIM): 7 Expression(FIM): 7 Social Interaction(FIM): 7 Problem Solving(FIM): 7 Memory(FIM): 7 ADL-Treatment Pt stated that she has elevated toilet seat, architectural technologist, sock aide and walk in shower at home. Therapy Code Descriptions/Definitions Functional [place] Measure: 0=Not Assessed/NA 4=Minimal Assistance 1=Total Assistance 5=Supervision or Setup 2=Maximal Assistance 6=Modified [place] 3=Moderate Assistance 7=Complete [place] Therapy Quality Codes: 6 Independent with activity with or without an assistive device 5 Patient requires set up or clean up by helper. Patient completes activity by themselves 4 Supervision or touching assist (CGA). [place] provide cues , steadying assist 3 The helper provides less than half the effort to complete the activity 2 The helper provides more than half the effort to complete the activity 1 Dependent. The helper does all the effort to complete an activity 7 Patient refused to complete or attempt activity 9 The patient did not perform the activity before the current illness or i njury 88 Not attempted due to Medical conditions or safety concerns Grooming (FIM): 6 (Mod I using FWW. Pt stood at sink to complete own grooming.) Oral Hygiene (QC): 6 Upper Body (FIM): 6 (Pt used FFW to retrieve clothing then dressed upper body by self in standing.) Upper Body Dressing (QC): 6 On/Off Footwear (QC): 3 (Pt needed min assistance donning left shoe using AE, able to don R shoe by self using AE. Assist to don MARCIA hose.) Toileting (FIM): 6 (Using grabbar, BSC and FWW pt able to manipulate clothing and cleansing self.) Toileting Hygiene (QC): 6 Transfers (B, C, W/C) (FIM): 4 (Min A sit to stand from low surface using FWW.) Toilet/Commode Transfer (FIM): 5 (SBA using FWW, BSC and grabbars.) Toilet Transfer (QC): 4 Other Treatment Pt ambulated to therapy gym using FWW with CGA. Completed UE exercises to increase strength and activity tolerance for daily functional tasks. Pt complete arm bike at 20 diaz resistance for 15 min, 2 recovery breaks. 3 wrist exercises each hand completed with 2# wt, 3 sets 10 reps. Resistive clothes pins completed with each hand, 1x. Dowel kristie exercises for shldr strengthening, initially with 2# wt then pt became fatigued and dizzy, completed without wt. Dowel kristie exercises, 3 sets 10 reps. After therapy, pt sitting in recliner with call light/phone in reach. Nrsg in room. All needs met in room. OT Short Term Goals Short Term Goals Time Frame: Nov 17, 2018 Eating(FIM): 7 Grooming(FIM): 5 Bathing(FIM): 4 Upper Body Dressing(FIM): 5 Lower Body Dressing(FIM): 4 Toileting(FIM): 4 Transfers (B,C,W/C) (FIM): 4 Toilet/Commode Transfer(FIM): 4 Shower Transfer(FIM): 4 Additional Short Term Goals: 1-Demonstrate ADL Tasks, 2-Verbalize Understanding, 3-ImproveStrength/[place] 1=Demonstrate adherence to instructed precautions during ADL tasks. 2=Patient will verbalize/demonstrate understanding of assistive devices/modifications for ADL. 3=Patient will improve strength/tolerance for activity to enable patient to perform ADL's. OT Halfway Goals Shoe Cobbler Goals Time Frame: Nov 24, 2018 Eating (FIM): 7 Eating (QC): 6 Groomin Oral Hygiene (QC): 6 Bathing(FIM): 5 Shower/Bathe Self (QC): 5 Upper Body Dressing(FIM): 6 Upper Body Dressing (QC): 6 Lower Body Dressing(FIM): 6 Lower Body Dressing (QC): 6 On/Off Footwear (QC): 6 Toileting(FIM): 6 Toileting Hygiene (QC): 6 Transfers (B,C,W/C) (FIM): 6 Toilet/Commode Transfer(FIM): 6 Toilet/Commode Transfer (QC): 6 Shower Transfer(FIM): 6 Additional Goals: 1-Demonstrate ADL Tasks, 2-Verbalize Understanding, 3- ImproveStrength/[place] 1=Demonstrate adherence to instructed precautions during ADL tasks. 2=Patient will verbalize/demonstrate understanding of assistive devices/modifications for ADL. 3=Patient will improve strength/tolerance for activity to enable patient to perform ADL's. OT Education/Plan Problem List/Assessment Assessment: Decreased UE Strength, Impaired Self-Care Skills Discharge Recommendations Plan/Recommendations: Continue POC Treatment Plan/Plan of Care Patient would benefit from OT for education, treatment and training to promote independence in ADL's, mobility, safety and/or upper extremity function for ADL's. Plan of Care: ADL Retraining, Functional Mobility, UE Funct Exercise/Act Treatment Duration: Nov 24, 2018 Frequency: At least 5 of 7 days/Wk (IRF) Estimated Hrs Per Day: 1.5 hours per day Agreement: Yes Rehab Potential: Good Time/GCodes Start Time: 07:00 Stop Time: 08:30 Total Time Billed (hr/min): 90 Billed Treatment Time 1 visit-ADL 2 (30 min) EX 4 (60 min) DAVINA RAMIREZ Nov 16, 2018 07:21
[2018-11-16 08:00] VITALS: BP 104/67
--- NOTE | 2018-11-16 08:00 | NUR ---
MINIMAL DRAINAGE LEFT HIP INCISION AND INCISION HEALING WELL. DR. SIERRA AWARE OF LOW GRADE TEMP, ACCOMPANIED BY RISING WBD AND PLATELET LEVELS. OCCASIONAL NONPRODUCTIVE COUGH. BP STABLE. CONTINUES TO GET ADEQUATE PAIN RELIEF WHEN TAKES LORTAB PRIOR TO THERAPY.
[2018-11-16] MEDS: SENNA W/DOCUSATE (SENOKOT S) TABLET PO SCH ×2 (08:20→20:43)
[2018-11-16] MEDS: POLYETHYLENE GLYCOL 17 GM (MIRALAX) PACK PO SCH ×2 (08:20→20:43)
[2018-11-16] MEDS: CARVEDILOL 6.25 MG (COREG) TAB PO SCH ×2 (08:24→20:39)
[2018-11-16] MEDS: ACETAMINOPHEN 500 MG TAB (TYLENOL) PO PRN (08:25)
[2018-11-16] MEDS: ENOXAPARIN 40 MG/0.4 ML (LOVENOX) SYR SC SCH (08:26)
[2018-11-16] MEDS: ASPIRIN E.C. 81 MG (ECOTRIN) TAB PO SCH (08:28)
--- NOTE | 2018-11-16 08:41 | PM&R Progress Note ---
Subjective HPI/CC On Admission Date Seen by Provider: Nov 16, 2018 Time Seen by Provider: 08:45 Chief complaint: Debility following open left femur fracture History of present illness: This is a 63-year-old white female clinic patient of Dr. Hurt at [facility] who presents to the inpatient rehab unit following an open left femur fracture when she was trying to put the camper on the trailer hitch when she became pinned in between the camper and the truck and sustained the injury. She had an uncomplicated repair at [facility] and now she presents for recovery in order to regain independence and return living at home and returning to work at the [employer] office in [facility]. She quit smoking many years ago and she sees cardiology Dr. Sandoval for nonischemic dilated cardiomyopathy of uncertain etiology and was at 10% on echocardiogram it is improved to 45% on the most recent echo July 2018. She also has a history of acute pancreatitis due to gallbladder disease status post cholecystectomy and occasional GERD. I reviewed labs from [facility] and I have ordered repeat tomorrow and she reports that her bowels are moving very well after multiple laxatives given prior to discharge at [facility]. She reports pain is tolerable takes hydrocodone and Tylenol with good results. Prior level of functioning was completely independent without the use of assistive devices and completely independent with ADLs. Barriers to returning home will include the need to ambulate at least with a walker to get around the house and be able to regain the ability to shower and perform activities of daily living in order to return home. She does have a recent onset of orthostatic hypotension and because of that I will provide a slower paced rehab process with 17/10 in order to assure she can be successful in this unit. I have consulted Dr. Erazo on-call for Dr. Sandoval and his help is much appreciated. Subjective/Events-last exam Low-grade fever noted . Platelet count is 619,000. It is noted that she did have an open femur fracture so will monitor that cl osely along with the low-grade fever. She does have two stairs making it a little more of a barrier to return home but will work towards that with PT. Orthostatic hypotension improved. Checked meds and labs. Appreciate cardiology consultation Conferred with RN Reviewed therapy notes Check meds and labs Thought her leg was not aligned so xrays were ordered and they all appeared to be stable Review of Systems General: Fatigue Musculoskeletal: leg pain Objective Exam Vital Signs Vital Signs Date Time Temp Pulse Resp B/P (MAP) Pulse Ox O2 Delivery O2 Flow Rate FiO2 11/16/18 17:20 98.6 67 20 130/78 (95) 97 Room Air Capillary Refill : Less Than 3 Seconds General Appearance: No Apparent Distress, WD/WN, Chronically ill HEENT: PERRL/EOMI, Normal ENT Inspection, Pharynx Normal Neck: Full Range of Motion, Normal Inspection, Non Tender, Supple Respiratory: Chest Non Tender, Lungs Clear, Normal Breath Sounds, No Accessory Muscle Use, No Respiratory Distress Cardiovascular: Regular Rate, Rhythm, No Gallop, No JVD, No Murmur Gastrointestinal: Normal Bowel Sounds, Non Tender, Soft Rectal: Deferred Back: No CVA Tenderness Extremity: Normal Capillary Refill, Normal Inspection, Non Tender, No Calf Tenderness, Pedal Edema, Other (limited ROM left leg) Neurologic/Psychiatric: Alert, Oriented x3, No Motor/Sensory Deficits, Normal Mood/Affect, lead painter II-XII Norm as Tested, Motor Weakness (left leg) Skin: Normal Color, Warm/Dry Lymphatic: No Adenopathy Results/Procedures Lab Laboratory Tests 11/16/18 05:00 11/16/18 05:20 Patient resulted labs reviewed. FIM Transfers Therapy Code Descriptions/Definitions Functional [place] Measure: 0=Not Assessed/NA 4=Minimal Assistance 1=Total Assistance 5=Supervision or Setup 2=Maximal Assistance 6=Modified [place] 3=Moderate Assistance 7=Complete [place] Therapy Quality Codes: 6 Independent with activity with or without an assistive device 5 Patient requires set up or clean up by helper. Patient completes activity by themselves 4 Supervision or touching assist (CGA). [place] provide cues , steadying assist 3 The helper provides less than half the effort to complete the activity 2 The helper provides more than half the effort to complete the activity 1 Dependent. The helper does all the effort to complete an activity 7 Patient refused to complete or attempt activity 9 The patient did not perform the activity before the current illness or injury 88 Not attempted due to Medical conditions or safety concerns Transfers (B, C, W/C) (FIM): 5 Scootin Rollin Roll Left to Right (QC): 4 Supine to/from Sit: 6 Sit to/from Stand: 5 Sit to Lying (QC): 3 Sit to Stand (QC): 5 Chair/Kfr-kf-Hrhwl Xfer(QC): 4 Bed to/from Chair: 5 Car Transfer (QC): 3 Gait Training Does the Patient Walk?: Yes Gait (FIM): 5 Distance (FIM): 3=150 ft Distance: 150' Walk 10 feet (QC): 5 Walk 50 ft with 2 Turns(QC): 5 Walk 150 ft (QC): 5 Walking 10ft/uneven surface-QC: 4 Gait Level of Assist: 5 Gait Persons Needed: 1 Gait Assistive Device: FWW Wheelchair Training Does the Pt Use a Wheelchair?: No Stair Training Stairs (FIM): 1 #of Steps: 1 1 Step (curb) (QC): 3 (mod assist to step up and to control to lower) 4 Steps (QC): 88 12 Steps (QC): 88 Level of Assist: 3 Balance Picking up an Object (QC): 88 Mental Status/Objective Comprehension: 7 Expression: 7 Social Interaction: 7 Problem Solvin Memory: 7 ADL-Treatment Feedin Eating (QC): 6 Groomin Oral Hygiene (QC): 4 Bathin Bathing Location: L Arm, R Arm, L Upper Leg, R Upper Leg, L Lower Leg (including foot) (LH sponge), R Lower Leg (including foot) (LH sponge), Chest, Abdomen, Buttocks, Perineal Area Shower/Bathe Self (QC): 4 Upper Extremity Dressin Upper Body Dressing (QC): 5 Lower Extremity Dressin Lower Body Dressing (QC): 4 On/Off Footwear (QC): 5 Toiletin Toileting Hygiene (QC): 4 Toilet/Commode Transfer: 5 Toilet Transfer (QC): 4 Shower: 5 Assessment/Plan Assessment and Plan Assess & Plan/Chief Complaint Assessment: Left femur fracture open type s/p repair Ligament strain in left knee with left knee pain and restricted ROM Deep femoral artery vascular compromise Dilated Cardiomyopathy nonischemic type Dr Sandoval follows appreciate Dr. Erazo following while Dr. Sandoval is out of town Microcytic anemia Medication induced RTA Orthostatic hypotension BPPV Pre-renal azotemia due to low cardiac output Stress induced hyperglycemia Acid reflux Seasonal allergies MAIRO on CPAP Low grade fever Plan: Dressing and wound care Hold Cozaar and Coreg CBC CMP prn Glucometer testing and monitor Reviewed medication Assistance with therapy until regains independence Appreciate Cardiology Maintain CPAP Monitor low grade fever (1) Femur fracture (2) Hypotension Status: Acute Qualifiers: Hypotension type: orthostatic hypotension Qualified Codes: I95.1 - Orthostatic hypotension (3) History of pancreatitis Status: Chronic (4) GERD without esophagitis Status: Chronic (5) Postoperative anemia Status: Acute (6) DVT prophylaxis Status: Acute (7) Dilated cardiomyopathy Status: Chronic (8) Orthostasis Status: Acute (9) MARIO on CPAP Status: Chronic (10) Fever, low grade CHITRA SIERRA DO Nov 16, 2018 08:41
--- NOTE | 2018-11-16 10:18 | Progress Note - Hospitalist ---
[facility] 11/16/18 1018: Progress Note Ms. Fernandez had no acute events overnight. Routine CBC shows mild leukocytosis and thrombocytosis. She has an occasional cough, but feels in her normal health. Wound is slean and dry without increased drainage. Continue to monitor. Barriers to discharge: Patient states she has has a small house that is open and accessible. Bathroom is with 30 feet of the bed, kitchen and living room are central. Son and daughter live with her and are available each evening. She feels confident in her ability to navigate around her house with no assistance, and may need occasional assistance in getting up from chair. Her only concern is the 2 stairs on entry to house. She feels she can ascend fine, but is nervous with descending to leave the house. Will ask OT/PT to work with her on this today. Laboratory Tests 11/16/18 05:00: Blood Urea Nitrogen 20H 11/16/18 05:20: White Blood Count 13.9H, Red Blood Count 3.63L, Hemoglobin 9.0L, Hematocrit 30L, Mean Corpuscular Hemoglobin Concent 30L, Red Cell Distribution Width 22.1H, Platelet Count 619H YUID SIERRA DO 11/16/18 2107: Supervisory-Addendum Brief Verification & Attestation Participated in pt care: history, MDM, physical Personally performed: exam, history, MDM, supervision of care Care discussed with: Medical Student Procedures: n/a Results interpretation: Verified all documentation Verification and Attestation of Medical Student E/M Service A medical student performed and documented this service in my presence. I reviewed and verified all information documented by the medical student and made modifications to such information, when appropriate. I personally performed the physical exam and medical decision making. Yudi Sierra Nov 16, 2018,21:07 [facility] Nov 16, 2018 10:18 YUDI SIERRA DO Nov 16, 2018 21:07
[2018-11-16] MEDS: HYDROcodone/APAP 5 MG/325 MG (LORTAB) TAB PO PRN ×2 (10:30→20:41)
--- NOTE | 2018-11-16 12:16 | Physical Therapy Daily Note ---
PT Daily Note-Current Subjective Pt sitting in recliner upon arrival. Pt agrees to PT. Pt reports would like to D/C Wednesday (11/18). Pain Numeric Pain Scale: 4 Location: Left Location Body Site: Knee Pain Description: Ache, Tightness Mental Status Patient Orientation: Person, Place, Time, Situation Transfers Therapy Code Descriptions/Definitions Functional [place] Measure: 0=Not Assessed/NA 4=Minimal Assistance 1=Total Assistance 5=Supervision or Setup 2=Maximal Assistance 6=Modified [place] 3=Moderate Assistance 7=Complete [place] Therapy Quality Codes: 6 Independent with activity with or without an assistive device 5 Patient requires set up or clean up by helper. Patient completes activity by themselves 4 Supervision or touching assist (CGA). [place] provide cues , steadying assist 3 The helper provides less than half the effort to complete the activity 2 The helper provides more than half the effort to complete the activity 1 Dependent. The helper does all the effort to complete an activity 7 Patient refused to complete or attempt activity 9 The patient did not perform the activity before the current illness or injury 88 Not attempted due to Medical conditions or safety concerns Scootin Sit to/from Stand: 5 Sit to Stand (QC): 5 Weight Bearing Right Lower Extremity: Right Full Weight Bearing Left Lower Extremity: Left Weight Bearing/Tolerated Gait Training Does the Patient Walk?: Yes Gait (FIM): 5 Distance (FIM): 3=150 ft Distance: 150' Walk 10 feet (QC): 5 Walk 50 ft with 2 Turns(QC): 5 Walk 150 ft (QC): 5 Gait Level of Assist: 5 Gait Persons Needed: 1 Gait Assistive Device: FWW Pt walks with antalgic gait and slow lucho. Pt walks gingerly on L LE, WB more through UE. PRESIDENT encourages more WB through LE. Wheelchair Training Does the Pt Use a Wheelchair?: No Stair Training Stair Training: Handrails/: 2 handrails #of Steps: 4 1 Step (curb) (QC): 4 4 Steps (QC): 4 Stairs: Pattern: Step to Level of Assist: 4 PRESIDENT gives VC for sequencing & foot placement. Exercises NuStep Minutes: 15 NuStep Workload: 4 Treatments Pt transfers from recliner to standing then uses restroom before ambulating in hallway. Pt attempts single step in //bars then completes 4 steps in staircase. Pt uses NuStep then short RB before returning to room to rest at end of tx. Pt rests in recliner with all needs met, call light next to pt. Assessment Current Status: Good Progress PRESIDENT encourages pt to WB through LE and need for hand rails for ambulating stairs. PT Short Term Goals Short Term Goals Time Frame: Nov 17, 2018 Transfers (B,C,W/C) (FIM): 4 Gait (FIM): 4 PT Intermediate Goals Intermediate Goals PT Entry Engineer Goals Time Frame: Nov 24, 2018 Transfers (B,C,W/C) (FIM): 7 Sit to Lying (QC): 6 Lying-Sitting on Side/Bed(QC): 6 Sit to Stand (QC): 6 Rollin Roll Left to Right (QC): 6 Chair/Ppu-qw-Hwawf Xfer(QC): 6 Car Transfer (QC): 6 Does the Patient Walk: Yes Gait (FIM): 6 Gait distance (FIM): 3=150 ft Walk 10 feet (QC): 6 Walk 10ft-Uneven Surface(QC): 6 Walk 50ft with 2 Turns (QC): 6 Walk 150 ft (QC): 6 Gait Assistive Device: FWW Does the Pt use WC or Scooter?: No Stairs (FIM): 5 (household) # of Steps: 4 1 Step (curb) (QC): 6 4 Steps (QC): 6 12 Steps (QC): 88 Stairs Level Of Assist: 6 Picking up an Object (QC): 88 PT Plan Problem List Problem List: Activity Tolerance, Gait Treatment/Plan Treatment Plan: Continue Plan of Care Treatment Plan: Bed Mobility, Education, Functional Activity Lefty, Functional Strength, Group Therapy, Gait, Safety, Therapeutic Exercise, Transfers Treatment Duration: Nov 24, 2018 Frequency: At least 5 of 7 days/Wk (IRF) Estimated Hrs Per Day: 1.5 hours per day Patient and/or Family Agrees t: Yes Safety Risks/Education Patient Education: Gait Training, Steps, Correct Positioning, Safety Issues Teaching Recipient: Patient Teaching Methods: Discussion Response to Teaching: Verbalize Understanding Time/GCodes Time In: 1115 Time Out: 1215 Total Billed Treatment Time: 60 Total Billed Treatment 1, GT (15m), FA x2 (30m) & EX (15m) G Codes Necessary: No GRISELDA DRIVER PRESIDENT Nov 16, 2018 12:16
--- NOTE | 2018-11-16 14:25 | Physical Therapy Daily Note ---
PT Daily Note-Current Subjective Pt. questioning whether o not she needs HC PT vs out pt PT after DC. This CHEF UNDER recommends HC PT as pt. is still having some challenges with knee flexion on left as well as hip extension and ascending and descending stairs. Pt. does not comment on any pain this Rx but does comment on edema in LLE. Pt. elevated LEs in lift recliner with head down. Mental Status Patient Orientation: Normal For Age Transfers Therapy Code Descriptions/Definitions Functional [place] Measure: 0=Not Assessed/NA 4=Minimal Assistance 1=Total Assistance 5=Supervision or Setup 2=Maximal Assistance 6=Modified [place] 3=Moderate Assistance 7=Complete [place] Therapy Quality Codes: 6 Independent with activity with or without an assistive device 5 Patient requires set up or clean up by helper. Patient completes activity by themselves 4 Supervision or touching assist (CGA). [place] provide cues , steadying reza t 3 The helper provides less than half the effort to complete the activity 2 The helper provides more than half the effort to complete the activity 1 Dependent. The helper does all the effort to complete an activity 7 Patient refused to complete or attempt activity 9 The patient did not perform the activity before the current illness or injury 88 Not attempted due to Medical conditions or safety concerns in out bed and chair SBA Weight Bearing Right Lower Extremity: Right Full Weight Bearing Left Lower Extremity: Left Weight Bearing/Tolerated Gait Training Does the Patient Walk?: Yes Gait Assistive Device: FWW 150x2 SBA no LOB, improved hip ext on left Stair Training up down 4 steps using one rail and PARADICHLOROBENZENE MACHINE OPERATOR other side. Pt. states she feels a shift in her knee and thigh with wt bearing at times, Exercises Seated Therapy Exercises: Ankle pumps, Sit to stand, Long arc quads, Hip flexion Seated Reps: 12 Treatments knee flexion slides for knee flexion stretches with 20 sec hold x 5 left knee Assessment Current Status: Good Progress left knee flexion to 55 degrees today PT Short Term Goals Short Term Goals Time Frame: Nov 17, 2018 Transfers (B,C,W/C) (FIM): 4 Gait (FIM): 4 PT Compounding Pharmacy Technician Goals Mcc Goals PT Mcc Goals Time Frame: Nov 24, 2018 Transfers (B,C,W/C) (FIM): 7 Sit to Lying (QC): 6 Lying-Sitting on Side/Bed(QC): 6 Sit to Stand (QC): 6 Rollin Roll Left to Right (QC): 6 Chair/Vwi-xm-Ruxzn Xfer(QC): 6 Car Transfer (QC): 6 Does the Patient Walk: Yes Gait (FIM): 6 Gait distance (FIM): 3=150 ft Walk 10 feet (QC): 6 Walk 10ft-Uneven Surface(QC): 6 Walk 50ft with 2 Turns (QC): 6 Walk 150 ft (QC): 6 Gait Assistive Device: FWW Does the Pt use WC or Scooter?: No Stairs (FIM): 5 (household) # of Steps: 4 1 Step (curb) (QC): 6 4 Steps (QC): 6 12 Steps (QC): 88 Stairs Level Of Assist: 6 Picking up an Object (QC): 88 PT Plan Treatment/Plan Treatment Plan: Continue Plan of Care Treatment Plan: Bed Mobility, Education, Functional Activity [place]ef[place], Functional Strength, Group Therapy, Gait, Safety, Therapeutic Exercise, Transfers Treatment Duration: Nov 24, 2018 Frequency: At least 5 of 7 days/Wk (IRF) Estimated Hrs Per Day: 1.5 hours per day Patient and/or Family Agrees t: Yes Safety Risks/Education Patient Education: Gait Training, Transfer Techniques, Steps Teaching Recipient: Patient Teaching Methods: Demonstration, Discussion Response to Teaching: Verbalize Understanding, Return Demonstration, Reinforcement Needed Time/GCodes Time In: 1335 Time Out: 1405 Total Billed Treatment Time: 30 Total Billed Treatment 1,FA15m,GT15m G Codes Necessary: CURT Fowler CHEF UNDER Nov 16, 2018 14:25
--- NOTE | 2018-11-16 15:00 | NUR ---
PT VOICES CONCERN THAT PATIENT COMPLAINS OF LEFT KNEE AND THIGH "SHIFTING" AT TIMES WITH WEIGHT BEARING AND RECOMMEND XRAY. DR. SIERRA NOTIFIED AND ORDERS RECEIVED.
--- NOTE | 2018-11-16 15:40 | NUR ---
Team conference Discussed team conference with patient. Team in agreement with requested discharge date of 11/19/18. Patient requesting outpatient PT and has signed choice form. She will utilize [facility] outpatient therapy and an appointment has been made for 11/25/18 at 1430. Patient verbalizes understanding and is in agreement with discharge plan. Addendum: 11/21/18 at 1141 by RAYO LUNDY RN Patient reports her son is adding a rail to the front entry steps. Patient also states she will purchase a dressing stick if needed.
--- NOTE | 2018-11-16 16:00 | NUR ---
DOWNSTAIRS FOR XRAYS.
--- NOTE | 2018-11-16 16:58 | Diagnostic Imaging Report ---
INDICATION: Left knee pain. FINDINGS: Three views of the left knee show no fracture, dislocation or other acute abnormalities. There are some small osteophytes forming at the medial tibiofemoral joint space. Joint spaces are well-maintained. The patient has a long intramedullary kristie anchored in the distal femur. IMPRESSION: Mild degenerative changes of the medial compartment of the left knee. No acute abnormality is seen. Dictated by: Dictated on workstation # [id number]
--- NOTE | 2018-11-16 16:58 | Diagnostic Imaging Report ---
INDICATION: Left hip pain. FINDINGS: AP and lateral views of the left femur show postop changes from internal fixation of the left hip with a dynamic compression device. There is a long intramedullary kristie extending to the distal femoral metaphysis. There is a comminuted oblique fracture of the distal femoral shaft which appears to be transfixed in good alignment with only slight lateral offset of the distal component by less than the width of the cortex. IMPRESSION: Good alignment of the distal left femur following internal fixation. There is no appreciable callus formation. Dictated by: Dictated on workstation # [id number]
--- NOTE | 2018-11-16 17:00 | Diagnostic Imaging Report ---
INDICATION: Hip pain with weightbearing. FINDINGS: AP view pelvis shows postop changes from internal fixation of the left hip. Fracture appears to have healed in good alignment. There is no acute fracture or dislocation. Hip joint spaces are well-maintained. IMPRESSION: Postop changes from internal fixation of the left hip. No acute abnormality is seen. Dictated by: Dictated on workstation # [id number]
[2018-11-16 17:20] VITALS: BP 130/78
--- NOTE | 2018-11-16 19:12 | NUR ---
bedside report received from DEBORA RUBI, assume care of pt
[2018-11-16] MEDS: LOSARTAN 25 MG (COZAAR) TAB PO SCH (20:41)
--- NOTE | 2018-11-16 20:41 | NUR ---
c/o lt hip pain level 4/10, Lortab 5 1 tab po given
--- NOTE | 2018-11-16 20:45 | NUR ---
assessments & interventions completed, see assessments & interventions, remains up in the chair, refused [place] [facility] [place] states had good BM today
--- NOTE | 2018-11-16 21:20 | NUR ---
rates pain 0/10 on numeric scale
--- NOTE | 2018-11-16 22:00 | NUR ---
to bathroom then back to bed with 1 person assist & walker
[2018-11-17 06:33] VITALS: BP 124/74
--- NOTE | 2018-11-17 07:12 | Occupational Ther Daily Note ---
OT Current Status-Daily Note Subjective Pt alert, lying in bed. Pt agrees to therapy. Pt states that pain is not bad this morning. Mental Status/Objective Therapy Code Descriptions/Definitions Functional [place] Measure: 0=Not Assessed/NA 4=Minimal Assistance 1=Total Assistance 5=Supervision or Setup 2=Maximal Assistance 6=Modified [place] 3=Moderate Assistance 7=Complete [place] Comprehension(FIM): 7 Expression(FIM): 7 Social Interaction(FIM): 7 ADL-Treatment Pt completed sponge bath sitting on toilet. Therapy Code Descriptions/Definitions Functional [place] Measure: 0=Not Assessed/NA 4=Minimal Assistance 1=Total Assistance 5=Supervision or Setup 2=Maximal Assistance 6=Modified [place] 3=Moderate Assistance 7=Complete [place] Therapy Quality Codes: 6 Independent with activity with or without an assistive device 5 Patient requires set up or clean up by helper. Patient completes activity by themselves 4 Supervision or touching assist (CGA). [place] provide cues , steadying assist 3 The helper provides less than half the effort to complete the activity 2 The helper provides more than half the effort to complete the activity 1 Dependent. The helper does all the effort to complete an activity 7 Patient refused to complete or attempt activity 9 The patient did not perform the activity before the current illness or injury 88 Not attempted due to Medical conditions or safety concerns Grooming (FIM): 6 (Pt stood at sink using FFW to complete grooming activity. ) Bathing (FIM): 7 Bathing Location: L Arm, R Arm, Chest Upper Body (FIM): 5 (Pt completed upper body dressing activity sitting EOB after set up. ) Upper Body Dressing (QC): 5 Lower Body Dressing (FIM): 4 (Pt able to don underwear and pants using AE, FFW, and grabbar. Assist to don MARCIA hose and fasten L shoe.) Lower Body Dressing (QC): 3 On/Off Footwear (QC): 3 Toileting (FIM): 6 (Pt able to manage clothing properly and complete hygiene. Pt used FFW and grabbar. ) Toileting Hygiene (QC): 6 Transfers (B, C, W/C) (FIM): 6 (Pt used FFW to ambulate around room. ) Toilet/Commode Transfer (FIM): 6 (Pt used FFW and grabbar. ) Toilet Transfer (QC): 6 Other Treatment Pt ambulated from room to therapy gym using FWW and CGA. Pt completed upper body exercise to increase activity tolerance and strength for daily functional task. Arm bike duration 15 min with 15 RPM resistance without recovery breaks. Pt use 2# wt for 3 wrist exercises, 3 sets 10 reps, then 2# wt for R/L upper arm exercises 3 sets 10 reps each . Pt left seated in chair, call light in reach. Pts needs met. Reported to nrsg pt needed pain meds. PT took over care of pt. Education OT Patient Education: Modified ADL techniques Teaching Recipient: Patient Teaching Methods: Demonstration Response to Teaching: Verbalize Understanding OT Short Term Goals Short Term Goals Time Frame: Nov 17, 2018 Eating(FIM): 7 Grooming(FIM): 5 Bathing(FIM): 4 Upper Body Dressing(FIM): 5 Lower Body Dressing(FIM): 4 Toileting(FIM): 4 Transfers (B,C,W/C) (FIM): 4 Toilet/Commode Transfer(FIM): 4 Shower Transfer(FIM): 4 Additional Short Term Goals: 1-Demonstrate ADL Tasks, 2-Verbalize Understanding, 3-ImproveStrength/Lefty 1=Demonstrate adherence to instructed precautions during ADL tasks. 2=Patient will verbalize/demonstrate understanding of assistive devices/modifications for ADL. 3=Patient will improve strength/tolerance for activity to enable patient to perform ADL's. OT Mutuel Cashier Goals Mutuel Cashier Goals Time Frame: Nov 24, 2018 Eating (FIM): 7 Eating (QC): 6 Groomin Oral Hygiene (QC): 6 Bathing(FIM): 5 Shower/Bathe Self (QC): 5 Upper Body Dressing(FIM): 6 Upper Body Dressing (QC): 6 Lower Body Dressing(FIM): 6 Lower Body Dressing (QC): 6 On/Off Footwear (QC): 6 Toileting(FIM): 6 Toileting Hygiene (QC): 6 Transfers (B,C,W/C) (FIM): 6 Toilet/Commode Transfer(FIM): 6 Toilet/Commode Transfer (QC): 6 Shower Transfer(FIM): 6 Additional Goals: 1-Demonstrate ADL Tasks, 2-Verbalize Understanding, 3- ImproveStrength/Lefty 1=Demonstrate adherence to instructed precautions during ADL tasks. 2=Patient will verbalize/demonstrate understanding of assistive devices/modifications for ADL. 3=Patient will improve strength/tolerance for activity to enable patient to perform ADL's. OT Education/Plan Problem List/Assessment Assessment: Decreased Activ Tolerance, Decreased UE Strength, Impaired Self- Care Skills Discharge Recommendations Plan/Recommendations: Continue POC Treatment Plan/Plan of Care Patient would benefit from OT for education, treatment and training to promote independence in ADL's, mobility, safety and/or upper extremity function for ADL's. Plan of Care: ADL Retraining, Functional Mobility, UE Funct Exercise/Act Treatment Duration: Nov 24, 2018 Frequency: At least 5 of 7 days/Wk (IRF) Estimated Hrs Per Day: 1.5 hours per day Agreement: Yes Rehab Potential: Good Time/GCodes Start Time: 07:00 Stop Time: 08:30 Total Time Billed (hr/min): 90 Billed Treatment Time 1 visit-ADL 3 (45 min) EX 3 (45 min) DAVINA RAMIREZ Nov 17, 2018 07:12
--- NOTE | 2018-11-17 07:16 | NUR ---
bedside report given to DEBORA RUBI
--- NOTE | 2018-11-17 08:22 | PM&R Progress Note ---
Subjective HPI/CC On Admission Date Seen by Provider: Nov 17, 2018 Time Seen by Provider: 08:15 Chief complaint: Debility following open left femur fracture History of present illness: This is a 63-year-old white female clinic patient of Dr. Hurt at [facility] who presents to the inpatient rehab unit following an open left femur fracture when she was trying to put the camper on the trailer hitch when she became pinned in between the camper and the truck and sustained the injury. She had an uncomplicated repair at [facility] and now she presents for recovery in order to regain independence and return living at home and returning to work at the [employer] office in [facility]. She quit smoking many years ago and she sees cardiology Dr. Sandoval for nonischemic dilated cardiomyopathy of uncertain etiology and was at 10% on echocardiogram it is improved to 45% on the most recent echo July 2018. She also has a history of acute pancreatitis due to gallbladder disease status post cholecystectomy and occasional GERD. I reviewed labs from [facility] and I have ordered repeat tomorrow and she reports that her bowels are moving very well after multiple laxatives given prior to discharge at [facility]. She reports pain is tolerable takes hydrocodone and Tylenol with good results. Prior level of functioning was completely independent without the use of assistive devices and completely independent with ADLs. Barriers to returning home will include the need to ambulate at least with a walker to get around the house and be able to regain the ability to shower and perform activities of daily living in order to return home. She does have a recent onset of orthostatic hypotension and because of that I will provide a slower paced rehab process with 17/10 in order to assure she can be successful in this unit. I have consulted Dr. Erazo on-call for Dr. Sandoval and his help is much appreciated. Subjective/Events-last exam X-rays were evaluated since she felt like the left leg had some slippage She remains afebrile CPAP use at night Plans for Wednesday discharge as long as no fever and the CBC abnormalities resolve She's going to work on the stairs today Checked meds and labs. Appreciate cardiology consultation Conferred with RN Reviewed therapy notes Check meds and labs Review of Systems Musculoskeletal: leg pain Objective Exam Vital Signs Vital Signs Date Time Temp Pulse Resp B/P (MAP) Pulse Ox O2 Delivery O2 Flow Rate FiO2 8/15/19 18:00 98.6 88 20 107/67 (80) 94 Room Air Capillary Refill : Less Than 3 Seconds General Appearance: No Apparent Distress, WD/WN, Chronically ill HEENT: PERRL/EOMI, Normal ENT Inspection, Pharynx Normal Neck: Full Range of Motion, Normal Inspection, Non Tender, Supple Respiratory: Chest Non Tender, Lungs Clear, Normal Breath Sounds, No Accessory Muscle Use, No Respiratory Distress Cardiovascular: Regular Rate, Rhythm, No Gallop, No JVD, No Murmur Gastrointestinal: Normal Bowel Sounds, Non Tender, Soft Rectal: Deferred Back: No CVA Tenderness Extremity: Normal Capillary Refill, Normal Inspection, Non Tender, No Calf Tenderness, Pedal Edema, Other (limited ROM left leg) Neurologic/Psychiatric: Alert, Oriented x3, No Motor/Sensory Deficits, Normal Mood/Affect, admiralty lawyer II-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 FIM Transfers Therapy Code Descriptions/Definitions Functional [place] Measure: 0=Not Assessed/NA 4=Minimal Assistance 1=Total Assistance 5=Supervision or Setup 2=Maximal Assistance 6=Modified [place] 3=Moderate Assistance 7=Complete [place] Therapy Quality Codes: 6 Independent with activity with or without an assistive device 5 Patient requires set up or clean up by helper. Patient completes activity by themselves 4 Supervision or touching assist (CGA). [place] provide cues , steadying assist 3 The helper provides less than half the effort to complete the activity 2 The helper provides more than half the effort to complete the activity 1 Dependent. The helper does all the effort to complete an activity 7 Patient refused to complete or attempt activity 9 The patient did not perform the activity before the current illness or injury 88 Not attempted due to Medical conditions or safety concerns Transfers (B, C, W/C) (FIM): 4 (Min A sit to stand from low surface using FWW.) Scootin Rollin Roll Left to Right (QC): 4 Supine to/from Sit: 6 Sit to/from Stand: 5 Sit to Lying (QC): 3 Sit to Stand (QC): 5 Chair/Lnv-rz-Xodah Xfer(QC): 4 Bed to/from Chair: 5 Car Transfer (QC): 3 Gait Training Does the Patient Walk?: Yes Gait (FIM): 5 Distance (FIM): 3=150 ft Distance: 150' Walk 10 feet (QC): 5 Walk 50 ft with 2 Turns(QC): 5 Walk 150 ft (QC): 5 Walking 10ft/uneven surface-QC: 4 Gait Level of Assist: 5 Gait Persons Needed: 1 Gait Assistive Device: FWW Wheelchair Training Does the Pt Use a Wheelchair?: No Stair Training Stair Training: Handrails/: 2 handrails Stairs (FIM): 1 #of Steps: 4 1 Step (curb) (QC): 4 4 Steps (QC): 4 12 Steps (QC): 88 Stairs: Pattern: Step to Level of Assist: 4 Balance Picking up an Object (QC): 88 Mental Status/Objective Comprehension: 7 Expression: 7 Social Interaction: 7 Problem Solvin Memory: 7 ADL-Treatment Feedin Eating (QC): 6 Groomin (Mod I using FWW. Pt stood at sink to complete own grooming.) Oral Hygiene (QC): 6 Bathin Bathing Location: L Arm, R Arm, L Upper Leg, R Upper Leg, L Lower Leg (including foot) (LH sponge), R Lower Leg (including foot) (LH sponge), Chest, Abdomen, Buttocks, Perineal Area Shower/Bathe Self (QC): 4 Upper Extremity Dressin (Pt used FFW to retrieve clothing then dressed upper body by self in standing.) Upper Body Dressing (QC): 6 Lower Extremity Dressin Lower Body Dressing (QC): 4 On/Off Footwear (QC): 3 (Pt needed min assistance donning left shoe using AE, able to don R shoe by self using AE. Assist to don MARCIA hose.) Toiletin (Using grabbar, BSC and FWW pt able to manipulate clothing and cleansing self.) Toileting Hygiene (QC): 6 Toilet/Commode Transfer: 5 (SBA using FWW, BSC and grabbars.) Toilet Transfer (QC): 4 Shower: 5 Assessment/Plan Assessment and Plan Assess & Plan/Chief Complaint Assessment: Left femur fracture open type s/p repair Ligament strain in left knee with left knee pain and restricted ROM Deep femoral artery vascular compromise Dilated Cardiomyopathy nonischemic type Dr Sandoval follows appreciate Dr. Erazo following while Dr. Sandoval is out of town Microcytic anemia Medication induced RTA Orthostatic hypotension BPPV Pre-renal azotemia due to low cardiac output Stress induced hyperglycemia Acid reflux Seasonal allergies MARIO on CPAP Low grade fever resolved. Plan: Dressing and wound care Hold Cozaar and Coreg CBC CMP prn Glucometer testing and monitor Reviewed medication Assistance with therapy until regains independence Appreciate Cardiology Maintain CPAP Monitor low grade fever Check labs in am (1) Femur fracture (2) Hypotension Status: Acute Qualifiers: Hypotension type: orthostatic hypotension Qualified Codes: I95.1 - Orthostatic hypotension (3) History of pancreatitis Status: Chronic (4) GERD without esophagitis Status: Chronic (5) Postoperative anemia Status: Acute (6) DVT prophylaxis Status: Acute (7) Dilated cardiomyopathy Status: Chronic (8) Orthostasis Status: Acute (9) MARIO on CPAP Status: Chronic (10) Fever, low grade CHITRA SIERRA DO Nov 17, 2018 08:22
[2018-11-17] MEDS: HYDROcodone/APAP 5 MG/325 MG (LORTAB) TAB PO PRN ×2 (08:36→21:29)
[2018-11-17] MEDS: CARVEDILOL 6.25 MG (COREG) TAB PO SCH ×2 (08:38→21:27)
[2018-11-17] MEDS: ASPIRIN E.C. 81 MG (ECOTRIN) TAB PO SCH (08:38)
[2018-11-17] MEDS: ENOXAPARIN 40 MG/0.4 ML (LOVENOX) SYR SC SCH (08:39)
[2018-11-17] MEDS: SENNA W/DOCUSATE (SENOKOT S) TABLET PO SCH ×2 (08:40→21:28)
[2018-11-17] MEDS: POLYETHYLENE GLYCOL 17 GM (MIRALAX) PACK PO SCH ×2 (08:40→21:28)
--- NOTE | 2018-11-17 09:56 | Progress Note - Hospitalist ---
SUDARSHAN EID [facility] 11/17/18 0956: Progress Note Ms. Fernandez continues to progress nicely. She is compliant with all OT/PT. She was able to complete exercise with stairs and is having a railing installed on her home stairs. During her rehab yestery, she felt like "things were moving inside" her leg. Hip/knee/femur XRays were ordered which showed no acute process and stable hardware, but a lack of callus formation on the fracture sight, perhaps leading to the sensation of instability. Plan include continuing OT/PT and CBC with Diff tomorrow to follow up on leukocytosis, and probable Dispo home on Wednesday. YUDI MEDINA DO 11/17/18 2131: Supervisory-Addendum Brief Verification & Attestation Participated in pt care: history, MDM, physical Personally performed: exam, history, MDM, supervision of care Care discussed with: Medical Student Procedures: n/a Results interpretation: Verified all documentation Verification and Attestation of Medical Student E/M Service A medical student performed and documented this service in my presence. I reviewed and verified all information documented by the medical student and made modifications to such information, when appropriate. I personally performed the physical exam and medical decision making. Yudi Medina, Nov 17, 2018,21:31 SUDARSHAN EID [facility] Nov 17, 2018 09:56 YUDI MEDINA DO Nov 17, 2018 21:31
--- NOTE | 2018-11-17 10:30 | Physical Therapy Daily Note ---
PT Daily Note-Current Subjective Pt sitting in recliner after just finishing with OT. Pt agrees to PT but does ask for pain meds so they will start working during tx. Pain Numeric Pain Scale: 4 Location: Left Location Body Site: Knee Pain Description: Ache, Tightness Mental Status Patient Orientation: Person, Place, Time, Situation Transfers Therapy Code Descriptions/Definitions Functional [place] Measure: 0=Not Assessed/NA 4=Minimal Assistance 1=Total Assistance 5=Supervision or Setup 2=Maximal Assistance 6=Modified [place] 3=Moderate Assistance 7=Complete [place] Therapy Quality Codes: 6 Independent with activity with or without an assistive device 5 Patient requires set up or clean up by helper. Patient completes activity by themselves 4 Supervision or touching assist (CGA). [place] provide cues , steadying assist 3 The helper provides less than half the effort to complete the activity 2 The helper provides more than half the effort to complete the activity 1 Dependent. The helper does all the effort to complete an activity 7 Patient refused to complete or attempt activity 9 The patient did not perform the activity before the current illness or in jury 88 Not attempted due to Medical conditions or safety concerns Scootin Sit to/from Stand: 6 Sit to Stand (QC): 6 Weight Bearing Right Lower Extremity: Right Full Weight Bearing Left Lower Extremity: Left Weight Bearing/Tolerated Gait Training Does the Patient Walk?: Yes Gait (FIM): 5 Distance: 150' Walk 10 feet (QC): 5 Walk 50 ft with 2 Turns(QC): 5 Walk 150 ft (QC): 5 Gait Level of Assist: 5 Gait Persons Needed: 1 Gait Assistive Device: FWW Pt walks with antalgic gait, PANEL BEATER encourages normalized gait. Wheelchair Training Does the Pt Use a Wheelchair?: No Exercises Seated Therapy Exercises: Ankle pumps, Long arc quads, Hip flexion, Kicking activity, Hamstring Curls, Hip abd/add Seated Reps: 20 NuStep Minutes: 15 NuStep Workload: 4 Treatments Pt receives pain med from Nurse to begin tx and completes Seated EX. PANEL BEATER & pt also discuss pain management techniques, HH vs OP PT and need to continue to pus h self then elevate B LE for decreased swelling. Pt transfers from chair to standing then ambulates in hallway. Pt uses NuStep for 15m at WL 4. Pt takes short RB before returning to room. Pt resting in chair with all needs met, call light next to pt. Assessment Current Status: Good Progress Pt reports feeling of instability with L knee. PANEL BEATER reassures pt that Xray returned with no results. PT Short Term Goals Short Term Goals Time Frame: Nov 17, 2018 Transfers (B,C,W/C) (FIM): 4 Gait (FIM): 4 PT Gear Tester Goals Fdc Goals PT Fdc Goals Time Frame: Nov 24, 2018 Transfers (B,C,W/C) (FIM): 7 Sit to Lying (QC): 6 Lying-Sitting on Side/Bed(QC): 6 Sit to Stand (QC): 6 Rollin Roll Left to Right (QC): 6 Chair/Dvm-sr-Lwtga Xfer(QC): 6 Car Transfer (QC): 6 Does the Patient Walk: Yes Gait (FIM): 6 Gait distance (FIM): 3=150 ft Walk 10 feet (QC): 6 Walk 10ft-Uneven Surface(QC): 6 Walk 50ft with 2 Turns (QC): 6 Walk 150 ft (QC): 6 Gait Assistive Device: FWW Does the Pt use WC or Scooter?: No Stairs (FIM): 5 (household) # of Steps: 4 1 Step (curb) (QC): 6 4 Steps (QC): 6 12 Steps (QC): 88 Stairs Level Of Assist: 6 Picking up an Object (QC): 88 PT Plan Problem List Problem List: Activity Tolerance, Gait Treatment/Plan Treatment Plan: Continue Plan of Care Treatment Plan: Bed Mobility, Education, Functional Activity [place], Functional Strength, Group Therapy, Gait, Safety, Therapeutic Exercise, Transfers Treatment Duration: Nov 24, 2018 Frequency: At least 5 of 7 days/Wk (IRF) Estimated Hrs Per Day: 1.5 hours per day Patient and/or Family Agrees t: Yes Safety Risks/Education Patient Education: Gait Training, Correct Positioning, Safety Issues Teaching Recipient: Patient Teaching Methods: Discussion Response to Teaching: Verbalize Understanding Time/GCodes Time In: 830 Time Out: 930 Total Billed Treatment Time: 60 Total Billed Treatment 1, GT (15m), EX x2 (30m) & FA (15m) G Codes Necessary: No GRISELDA DRIVER PANEL BEATER Nov 17, 2018 10:30
--- NOTE | 2018-11-17 15:16 | Physical Therapy Daily Note ---
PT Daily Note-Current Subjective Pt sitting in recliner upon arrival. Pt agrees to PT. Pain Numeric Pain Scale: 4 Location: Left Location Body Site: Knee Pain Description: Ache, Tightness Mental Status Patient Orientation: Person, Place, Time, Situation Transfers Therapy Code Descriptions/Definitions Functional [place] Measure: 0=Not Assessed/NA 4=Minimal Assistance 1=Total Assistance 5=Supervision or Setup 2=Maximal Assistance 6=Modified [place] 3=Moderate Assistance 7=Complete [place] Therapy Quality Codes: 6 Independent with activity with or without an assistive device 5 Patient requires set up or clean up by helper. Patient completes activity by themselves 4 Supervision or touching assist (CGA). [place] provide cues , steadying assist 3 The helper provides less than half the effort to complete the activity 2 The helper provides more than half the effort to complete the activity 1 Dependent. The helper does all the effort to complete an activity 7 Patient refused to complete or attempt activity 9 The patient did not perform the activity before the current illness or injury 88 Not attempted due to Medical conditions or safety concerns Scootin Sit to/from Stand: 6 Sit to Stand (QC): 6 Weight Bearing Right Lower Extremity: Right Full Weight Bearing Left Lower Extremity: Left Weight Bearing/Tolerated Gait Training Does the Patient Walk?: Yes Gait (FIM): 5 Distance (FIM): 3=150 ft Distance: 150' Walk 10 feet (QC): 5 Walk 50 ft with 2 Turns(QC): 5 Walk 150 ft (QC): 5 Gait Level of Assist: 5 Gait Persons Needed: 1 Gait Assistive Device: FWW Wheelchair Training Does the Pt Use a Wheelchair?: No Stair Training Stair Training: Handrails/: 1 handrail #of Steps: 4 1 Step (curb) (QC): 4 4 Steps (QC): 4 Stairs: Pattern: Step to Level of Assist: 4 Pt is very nervous about stairs and sometimes overthinks it needing reassurance to complete task. Treatments Pt transfers from recliner to standing and ambulates in hallway. Pt attempts steps with instruction from INSURANCE PROCESSOR. Pt having son build railing on one side for ambulation. Pt returns to room at end of tx with all needs met, call light next to pt. Assessment Current Status: Good Progress Pt will sometimes let her nerves get the best of her and needs encouragement to proceed with task. PT Short Term Goals Short Term Goals Time Frame: Nov 17, 2018 Transfers (B,C,W/C) (FIM): 4 Gait (FIM): 4 PT Long-Term Goals Surg Tech Goals PT Surg Tech Goals Time Frame: Nov 24, 2018 Transfers (B,C,W/C) (FIM): 7 Sit to Lying (QC): 6 Lying-Sitting on Side/Bed(QC): 6 Sit to Stand (QC): 6 Rollin Roll Left to Right (QC): 6 Chair/Fbk-ty-Xvxkm Xfer(QC): 6 Car Transfer (QC): 6 Does the Patient Walk: Yes Gait (FIM): 6 Gait distance (FIM): 3=150 ft Walk 10 feet (QC): 6 Walk 10ft-Uneven Surface(QC): 6 Walk 50ft with 2 Turns (QC): 6 Walk 150 ft (QC): 6 Gait Assistive Device: FWW Does the Pt use WC or Scooter?: No Stairs (FIM): 5 (household) # of Steps: 4 1 Step (curb) (QC): 6 4 Steps (QC): 6 12 Steps (QC): 88 Stairs Level Of Assist: 6 Picking up an Object (QC): 88 PT Plan Problem List Problem List: Activity Tolerance, Functional Strength Treatment/Plan Treatment Plan: Continue Plan of Care Treatment Plan: Bed Mobility, Education, Functional Activity [place], Functional Strength, Group Therapy, Gait, Safety, Therapeutic Exercise, Transfers Treatment Duration: Nov 24, 2018 Frequency: At least 5 of 7 days/Wk (IRF) Estimated Hrs Per Day: 1.5 hours per day Patient and/or Family Agrees t: Yes Safety Risks/Education Patient Education: Gait Training, Transfer Techniques, Steps, Correct Positioning, Safety Issues Teaching Recipient: Patient Teaching Methods: Discussion Response to Teaching: Verbalize Understanding Time/GCodes Time In: 1300 Time Out: 1330 Total Billed Treatment Time: 30 Total Billed Treatment 1, GT (15m), FA (15m) G Codes Necessary: GRISELDA [place] INSURANCE PROCESSOR Nov 17, 2018 15:16
[2018-11-17 18:00] VITALS: BP 107/67
[2018-11-17] MEDS: MELATONIN 3 MG TABLET PO PRN (21:28)
[2018-11-17] MEDS: LOSARTAN 25 MG (COZAAR) TAB PO SCH (21:28)
[2018-11-18 05:43] VITALS: BP 127/70
[2018-11-18 06:48] LABS: BASOPHILS # (AUTO) 0.1 10^3/uL (0.0-0.1); BASOPHILS % (AUTO) 1 % (0-10); EOSINOPHILS # (AUTO) 0.6 10^3/uL (0.0-0.3); EOSINOPHILS % (AUTO) 5 % (0-10); HEMATOCRIT 29 % (35-52); HEMOGLOBIN 8.9 G/DL (11.5-16.0); LYMPHOCYTES # (AUTO) 3.1 X 10^3 (1.0-4.0); LYMPHOCYTES % (AUTO) 26 % (12-44); MEAN CORPUSCULAR HEMOGLOBIN 25 PG (25-34); MEAN CORPUSCULAR HGB CONC 31 G/DL (32-36); MEAN CORPUSCULAR VOLUME 82 FL (80-99); MEAN PLATELET VOLUME 9.2 FL (7.4-10.4); MONOCYTES # (AUTO) 0.8 X 10^3 (0.0-1.0); MONOCYTES % (AUTO) 7 % (0-12); NEUTROPHILS # (AUTO) 7.1 X 10^3 (1.8-7.8); NEUTROPHILS % (AUTO) 61 % (42-75); PLATELET COUNT 671 10^3/uL (130-400); RED CELL DISTRIBUTION WIDTH 22.8 % (10.0-14.5); WHITE BLOOD COUNT 11.7 10^3/uL (4.3-11.0)
[2018-11-18 07:09] LABS: ALANINE AMINOTRANSFERASE 31 U/L (0-55); ALBUMIN 3.1 GM/DL (3.2-4.5); ALKALINE PHOSPHATASE 98 U/L (40-136); BILIRUBIN,TOTAL 0.5 MG/DL (0.1-1.0); BUN/CREATININE RATIO 32; CALCIUM 9.7 MG/DL (8.5-10.1); CARBON DIOXIDE 25 MMOL/L (21-32); CHLORIDE 103 MMOL/L (98-107); CREATININE SERUM 0.63 MG/DL (0.60-1.30); GFR ESTIMATED > 60; GLUCOSE 80 MG/DL (70-105); POTASSIUM 4.4 MMOL/L (3.6-5.0); SODIUM 137 MMOL/L (135-145); TOTAL PROTEIN 6.3 GM/DL (6.4-8.2)
--- NOTE | 2018-11-18 07:26 | Occupational Ther Daily Note ---
OT Current Status-Daily Note Subjective Pt alert and in bed. Pt agrees to therapy. Pt states that she is tired this morning. No c/o pain though does request pain medication prior to PT, reported to nrsg. Mental Status/Objective Patient Orientation: Person, Place, Time, Situation Therapy Code Descriptions/Definitions Functional [place] Measure: 0=Not Assessed/NA 4=Minimal Assistance 1=Total Assistance 5=Supervision or Setup 2=Maximal Assistance 6=Modified [place] 3=Moderate Assistance 7=Complete [place] ADL-Treatment Therapy Code Descriptions/Definitions Functional [place] Measure: 0=Not Assessed/NA 4=Minimal Assistance 1=Total Assistance 5=Supervision or Setup 2=Maximal Assistance 6=Modified [place] 3=Moderate Assistance 7=Complete [place] Therapy Quality Codes: 6 Independent with activity with or without an assistive device 5 Patient requires set up or clean up by helper. Patient completes activity by themselves 4 Supervision or touching assist (CGA). [place] provide cues , steadying assist 3 The helper provides less than half the effort to complete the activity 2 The helper provides more than half the effort to complete the activity 1 Dependent. The helper does all the effort to complete an activity 7 Patient refused to complete or attempt activity 9 The patient did not perform the activity before the current illness or injury 88 Not attempted due to Medical conditions or safety concerns Eating (FIM): 7 (Pt has demonstrated ability to complete own set up for meal and uses regular utensils.) Eating (QC): 6 Grooming (FIM): 6 (Pt used FWW at sink to brush hair and teeth. Pt sat in chair to apply make up. ) Oral Hygiene (QC): 6 Bathing (FIM): 6 (Using grabbar, long handle sponge, hand held shower and shower bench pt able to rinse, wash, and dry self. ) Bathing Location: L Arm, R Arm, L Upper Leg, R Upper Leg, L Lower Leg (including foot), R Lower Leg (including foot), Chest, Abdomen, Buttocks, Perineal Area Shower/Bathe Self (QC): 6 Upper Body (FIM): 6 (Pt able to retrieve clothes from chair and transport using FWW. Pt able to don pullover garments and upper body dressing independently. ) Upper Body Dressing (QC): 6 Lower Body Dressing (FIM): 6 (Pt able to retrieve clothes from chair and transport using FWW. Pt able to don pants independently. Needed AE to put on L sock. Pt needed AE to pull strap within reach to velcro L shoe. ) Lower Body Dressing (QC): 6 On/Off Footwear (QC): 6 Toileting (FIM): 6 (Pt able to cleanse self after voiding and BM. Pt required FWW and grabbar. Pt has toilet tongs to use as needed for cleansing buttocks.) Toileting Hygiene (QC): 6 Transfers (B, C, W/C) (FIM): 6 (Using FWW pt transfers by self.) Toilet/Commode Transfer (FIM): 6 (Pt used FWW and grabbar. ) Toilet Transfer (QC): 6 Shower Transfer(FIM): 6 (Pt required FWW, grabbar, and bench. ) Other Treatment Pt was given instruction on home exercise program to strengthen upper body using medium resistance bands to increase upper body strength for daily functional tasks. Pt participated in exercises once through to indicate understanding. After therapy, pt sitting in recliner with call light/phone in reach. All needs met in room. Education OT Patient Education: Home exercise program Teaching Recipient: Patient Teaching Methods: Demonstration Response to Teaching: Verbalize Understanding OT Short Term Goals Short Term Goals Time Frame: Nov 17, 2018 Eating(FIM): 7 Grooming(FIM): 5 Bathing(FIM): 4 Upper Body Dressing(FIM): 5 Lower Body Dressing(FIM): 4 Toileting(FIM): 4 Transfers (B,C,W/C) (FIM): 4 Toilet/Commode Transfer(FIM): 4 Shower Transfer(FIM): 4 Additional Short Term Goals: 1-Demonstrate ADL Tasks, 2-Verbalize Understanding, 3-ImproveStrength/[place]ef[place] 1=Demonstrate adherence to instructed precautions during ADL tasks. 2=Patient will verbalize/demonstrate understanding of assistive devices/modifications for ADL. 3=Patient will improve strength/tolerance for activity to enable patient to perform ADL's. OT Alf Goals Air Defense Artillery Officer Goals Time Frame: Nov 24, 2018 Eating (FIM): 7 (met-11/18/18) Eating (QC): 6 (met-11/18/18) Groomin (met-11/18/18) Oral Hygiene (QC): 6 (met-11/18/18) Bathing(FIM): 5 (met-11/18/18) Shower/Bathe Self (QC): 5 (met-11/18/18) Upper Body Dressing(FIM): 6 (met-11/18/18) Upper Body Dressing (QC): 6 (met-11/18/18) Lower Body Dressing(FIM): 6 (met-11/18/18) Lower Body Dressing (QC): 6 (met-11/18/18) On/Off Footwear (QC): 6 (met-11/18/18) Toileting(FIM): 6 (-11/18/18) Toileting Hygiene (QC): 6 (met-11/18/18) Transfers (B,C,W/C) (FIM): 6 (met-11/18/18) Toilet/Commode Transfer(FIM): 6 (met-11/18/18) Toilet/Commode Transfer (QC): 6 (met-11/18/18) Shower Transfer(FIM): 6 (-11/18/18) Additional Goals: 1-Demonstrate ADL Tasks, 2-Verbalize Understanding, 3- ImproveStrength/Lefty 1=Demonstrate adherence to instructed precautions during ADL tasks. 2=Patient will verbalize/demonstrate understanding of assistive devices/modifications for ADL. 3=Patient will improve strength/tolerance for activity to enable patient to perform ADL's. OT Education/Plan Problem List/Assessment Assessment: Decreased UE Strength, Impaired Self-Care Skills Discharge Recommendations Plan/Recommendations: Continue POC Therapy D/C Recommendations: Home w/ Family Support Equpiment Recommendations-D/C: Sock Aide Comment Pt has shower seat, reach, rails on stairs, elevated toilet seat, FWW and basket Treatment Plan/Plan of Care Patient would benefit from OT for education, treatment and training to promote independence in ADL's, mobility, safety and/or upper extremity function for ADL's. Plan of Care: ADL Retraining, Functional Mobility, UE Funct Exercise/Act Treatment Duration: Nov 24, 2018 Frequency: At least 5 of 7 days/Wk (IRF) Estimated Hrs Per Day: 1.5 hours per day Agreement: Yes Rehab Potential: Good Time/GCodes Start Time: 07:00 Stop Time: 08:30 Total Time Billed (hr/min): 90 Billed Treatment Time 1 visit-ADL 5 (75 min) EX 1 (15 min) DAVINA RAMIREZ Nov 18, 2018 07:26
--- NOTE | 2018-11-18 08:39 | PM&R Progress Note ---
Subjective HPI/CC On Admission Date Seen by Provider: Nov 18, 2018 Time Seen by Provider: 08:45 Chief complaint: Debility following open left femur fracture History of present illness: This is a 63-year-old white female clinic patient of Dr. Hurt at [facility] who presents to the inpatient rehab unit following an open left femur fracture when she was trying to put the camper on the trailer hitch when she became pinned in between the camper and the truck and sustained the injury. She had an uncomplicated repair at [facility] and now she presents for recovery in order to regain independence and return living at home and returning to work at the [employer] office in [facility]. She quit smoking many years ago and she sees cardiology Dr. Sandoval for nonischemic dilated cardiomyopathy of uncertain etiology and was at 10% on echocardiogram it is improved to 45% on the most recent echo July 2018. She also has a history of acute pancreatitis due to gallbladder disease status post cholecystectomy and occasional GERD. I reviewed labs from [facility] and I have ordered repeat tomorrow and she reports that her bowels are moving very well after multiple laxatives given prior to discharge at [facility]. She reports pain is tolerable takes hydrocodone and Tylenol with good results. Prior level of functioning was completely independent without the use of assistive devices and completely independent with ADLs. Barriers to returning home will include the need to ambulate at least with a walker to get around the house and be able to regain the ability to shower and perform activities of daily living in order to return home. She does have a recent onset of orthostatic hypotension and because of that I will provide a slower paced rehab process with 17/10 in order to assure she can be successful in this unit. I have consulted Dr. Erazo on-call for Dr. Sandoval and his help is much appreciated. Subjective/Events-last exam X-rays were updated to the patient She remains afebrile CPAP use at night every night Plans for Wednesday discharge She's going to work on the stairs more each day Checked meds and labs. Appreciate cardiology consultation Conferred with RN Reviewed therapy notes Check meds and labs Review of Systems Musculoskeletal: leg pain Objective Exam Vital Signs Vital Signs Date Time Temp Pulse Resp B/P (MAP) Pulse Ox O2 Delivery O2 Flow Rate FiO2 11/18/18 15:35 98.8 67 16 110/69 (83) 95 Room Air Capillary Refill : Less Than 3 Seconds General Appearance: No Apparent Distress, WD/WN, Chronically ill HEENT: PERRL/EOMI, Normal ENT Inspection, Pharynx Normal Neck: Full Range of Motion, Normal Inspection, Non Tender, Supple Respiratory: Chest Non Tender, Lungs Clear, Normal Breath Sounds, No Accessory Muscle Use, No Respiratory Distress Cardiovascular: Regular Rate, Rhythm, No Gallop, No JVD, No Murmur Gastrointestinal: Normal Bowel Sounds, Non Tender, Soft Rectal: Deferred Back: No CVA Tenderness Extremity: Normal Capillary Refill, Normal Inspection, Non Tender, No Calf Tenderness, Pedal Edema, Other (limited ROM left leg) Neurologic/Psychiatric: Alert, Oriented x3, No Motor/Sensory Deficits, Normal Mood/Affect, record changer tester II-XII Norm as Tested, Motor Weakness (left leg) Skin: Normal Color, Warm/Dry Lymphatic: No Adenopathy Results/Procedures Lab Laboratory Tests 11/18/18 05:45 Patient resulted labs reviewed. FIM Transfers Therapy Code Descriptions/Definitions Functional [place] Measure: 0=Not Assessed/NA 4=Minimal Assistance 1=Total Assistance 5=Supervision or Setup 2=Maximal Assistance 6=Modified [place] 3=Moderate Assistance 7=Complete [place] Therapy Quality Codes: 6 Independent with activity with or without an assistive device 5 Patient requires set up or clean up by helper. Patient completes activity by themselves 4 Supervision or touching assist (CGA). [place] provide cues , steadying assist 3 The helper provides less than half the effort to complete the activity 2 The helper provides more than half the effort to complete the activity 1 Dependent. The helper does all the effort to complete an activity 7 Patient refused to complete or attempt activity 9 The patient did not perform the activity before the current illness or injury 88 Not attempted due to Medical conditions or safety concerns Transfers (B, C, W/C) (FIM): 6 (Pt used FFW to ambulate around room. ) Scootin Rollin Roll Left to Right (QC): 4 Supine to/from Sit: 6 Sit to/from Stand: 6 Sit to Lying (QC): 3 Sit to Stand (QC): 6 Chair/Hoh-zb-Ngcbl Xfer(QC): 4 Bed to/from Chair: 5 Car Transfer (QC): 3 Gait Training Does the Patient Walk?: Yes Gait (FIM): 5 Distance (FIM): 3=150 ft Distance: 150' Walk 10 feet (QC): 5 Walk 50 ft with 2 Turns(QC): 5 Walk 150 ft (QC): 5 Walking 10ft/uneven surface-QC: 4 Gait Level of Assist: 5 Gait Persons Needed: 1 Gait Assistive Device: FWW Wheelchair Training Does the Pt Use a Wheelchair?: No Stair Training Stair Training: Handrails/: 1 handrail Stairs (FIM): 1 #of Steps: 4 1 Step (curb) (QC): 4 4 Steps (QC): 4 12 Steps (QC): 88 Stairs: Pattern: Step to Level of Assist: 4 Balance Picking up an Object (QC): 88 Mental Status/Objective Comprehension: 7 Expression: 7 Social Interaction: 7 Problem Solvin Memory: 7 ADL-Treatment Feedin Eating (QC): 6 Groomin (Pt used FWW at sink to brush hair and teeth. Pt sat in chair to apply make up. ) Oral Hygiene (QC): 6 Bathin (Pt ambulated to shower using FWW. Pt able to rinse, wash, and dry self. ) Bathing Location: L Arm, R Arm, L Upper Leg, R Upper Leg, L Lower Leg (including foot), R Lower Leg (including foot), Chest, Abdomen, Buttocks, Perineal Area Shower/Bathe Self (QC): 4 Upper Extremity Dressin (Pt able to retrieve clothes from chair and transport using FWW. Pt able to don pullover garments and upper body dressing independently. ) Upper Body Dressing (QC): 5 Lower Extremity Dressin (Pt able to don pants independently. Needed AE to put on L sock. Pt needed AE to pull strap within reach to velcro L shoe. ) Lower Body Dressing (QC): 3 On/Off Footwear (QC): 3 Toiletin (Pt able to cleanse self after voiding and BM. Pt required FWW and grabbar. ) Toileting Hygiene (QC): 6 Toilet/Commode Transfer: 6 (Pt used FWW and grabbar. ) Toilet Transfer (QC): 6 Shower: 6 (Pt required FWW, grabbar, and bench. ) Assessment/Plan Assessment and Plan Assess & Plan/Chief Complaint Assessment: Left femur fracture open type s/p repair Ligament strain in left knee with left knee pain and restricted ROM Deep femoral artery vascular compromise Dilated Cardiomyopathy nonischemic type Dr Sandoval follows appreciate Dr. Kacey montero while Dr. Sandoval is out of town Microcytic anemia Medication induced RTA Orthostatic hypotension BPPV Pre-renal azotemia due to low cardiac output Stress induced hyperglycemia Acid reflux Seasonal allergies MARIO on CPAP Low grade fever resolved. Plan: Dressing and wound care Hold Cozaar and Coreg CBC CMP prn Glucometer testing and monitor Reviewed medication Assistance with therapy until regains independence Appreciate Cardiology Maintain CPAP DC Wednesday (1) Femur fracture (2) Hypotension Status: Acute Qualifiers: Hypotension type: orthostatic hypotension Qualified Codes: I95.1 - Orthostatic hypotension (3) History of pancreatitis Status: Chronic (4) GERD without esophagitis Status: Chronic (5) Postoperative anemia Status: Acute (6) DVT prophylaxis Status: Acute (7) Dilated cardiomyopathy Status: Chronic (8) Orthostasis Status: Acute (9) MARIO on CPAP Status: Chronic (10) Fever, low grade CHITRA SIERRA DO Nov 18, 2018 08:39
[2018-11-18] MEDS: POLYETHYLENE GLYCOL 17 GM (MIRALAX) PACK PO SCH ×2 (08:54→20:39)
[2018-11-18] MEDS: CARVEDILOL 6.25 MG (COREG) TAB PO SCH ×2 (08:55→20:38)
[2018-11-18] MEDS: SENNA W/DOCUSATE (SENOKOT S) TABLET PO SCH ×2 (08:55→20:39)
[2018-11-18] MEDS: ASPIRIN E.C. 81 MG (ECOTRIN) TAB PO SCH (08:55)
[2018-11-18] MEDS: ENOXAPARIN 40 MG/0.4 ML (LOVENOX) SYR SC SCH (08:56)
[2018-11-18] MEDS: HYDROcodone/APAP 5 MG/325 MG (LORTAB) TAB PO PRN ×2 (08:56→20:39)
--- NOTE | 2018-11-18 10:00 | Physical Therapy Daily Note ---
PT Daily Note-Current Subjective Pt. agrees to Rx. States she feels she could be up ad tio confidently. No pain at this time Pain Location: No Pain Reported Appearance decreased step length on right avoiding hip extension on left as well as heavy wt bearing on FWW Mental Status Patient Orientation: Normal For Age Transfers Therapy Code Descriptions/Definitions Functional Thornton Measure: 0=Not Assessed/NA 4=Minimal Assistance 1=Total Assistance 5=Supervision or Setup 2=Maximal Assistance 6=Modified [place] 3=Moderate Assistance 7=Complete Thornton Therapy Quality Codes: 6 Independent with activity with or without an assistive device 5 Patient requires set up or clean up by helper. Patient completes activity by themselves 4 Supervision or touching assist (CGA). Morenci provide cues , steadying assist 3 The helper provides less than half the effort to complete the activity 2 The helper provides more than half the effort to complete the activity 1 Dependent. The helper does all the effort to complete an activity 7 Patient refused to complete or attempt activity 9 The patient did not perform the activity before the current illness or injury 88 Not attempted due to Medical conditions or safety concerns Transfers (B, C, W/C) (FIM): 6 Scootin Rollin Roll Left to Right (QC): 6 Supine to/from Sit: 6 Sit to/from Stand: 6 Sit to Lying (QC): 6 Sit to Stand (QC): 6 Chair/Rap-bj-Aukgq Xfer(QC): 6 Bed to/from Chair: 6 Car Transfer (QC): 6 Weight Bearing Right Lower Extremity: Right Full Weight Bearing Left Lower Extremity: Left Weight Bearing/Tolerated Gait Training Does the Patient Walk?: Yes Gait (FIM): 6 Distance (FIM): 3=150 ft (180x2) Walk 10 feet (QC): 6 Walk 50 ft with 2 Turns(QC): 6 Walk 150 ft (QC): 6 Walking 10ft/uneven surface-QC: 6 Gait Level of Assist: 6 Gait Persons Needed: 0 Gait Assistive Device: FWW up ad tio, uneven step length, heavy wt bearing on FWW, lacks full ext left hip , lacks full flexion left knee Stair Training Stair Training: Handrails/: 1 handrail (and RN CLINICIAN) Stairs (FIM): 2 #of Steps: 4 1 Step (curb) (QC): 4 4 Steps (QC): 4 Stairs: Pattern: Step to Level of Assist: 4 has some difficulty when descending to wt bear on affected LE Balance Special Test Comments not safe to trial picking object up off floor Exercises Supine Ex: Ankle pumps, Quad Set, Rolling, Glut sets, Heel Slides, Short Arc Quads, Scooting, Straight leg raise (indep), Hip abd/add Supine Reps: 15 Seated Therapy Exercises: Ankle pumps, Sit to stand, Long arc quads Seated Reps: 15 Assessment Current Status: Good Progress PT Short Term Goals Short Term Goals Time Frame: Nov 17, 2018 Transfers (B,C,W/C) (FIM): 4 Gait (FIM): 4 PT Asp Web Developer Goals Asp Web Developer Goals PT [facility] Goals Time Frame: Nov 24, 2018 Transfers (B,C,W/C) (FIM): 7 Sit to Lying (QC): 6 Lying-Sitting on Side/Bed(QC): 6 Sit to Stand (QC): 6 Rollin Roll Left to Right (QC): 6 Chair/Drk-ao-Hxtej Xfer(QC): 6 Car Transfer (QC): 6 Does the Patient Walk: Yes Gait (FIM): 6 Gait distance (FIM): 3=150 ft Walk 10 feet (QC): 6 Walk 10ft-Uneven Surface(QC): 6 Walk 50ft with 2 Turns (QC): 6 Walk 150 ft (QC): 6 Gait Assistive Device: FWW Does the Pt use WC or Scooter?: No Stairs (FIM): 5 (household) # of Steps: 4 1 Step (curb) (QC): 6 4 Steps (QC): 6 12 Steps (QC): 88 Stairs Level Of Assist: 6 Picking up an Object (QC): 88 PT Plan Treatment/Plan Treatment Plan: Continue Plan of Care Treatment Plan: Bed Mobility, Education, Functional Activity Lefty, Functional Strength, Group Therapy, Gait, Safety, Therapeutic Exercise, Transfers Treatment Duration: Nov 24, 2018 Frequency: At least 5 of 7 days/Wk (IRF) Estimated Hrs Per Day: 1.5 hours per day Patient and/or Family Agrees t: Yes Safety Risks/Education Patient Education: Gait Training, Transfer Techniques, Steps, Correct Positioning, Disease Process, Safety Issues Teaching Recipient: Patient Teaching Methods: Demonstration, Discussion Response to Teaching: Verbalize Understanding, Return Demonstration needs cuing for step length atec. Time/GCodes Time In: 900 Time Out: 1000 Total Billed Treatment Time: 60 Total Billed Treatment 1,FA25m,GT20m,EX15m G Codes Necessary: CURT Fowler FRACTIONATION SUPERVISOR Nov 18, 2018 10:00
--- NOTE | 2018-11-18 10:26 | Progress Note - Hospitalist ---
[facility] 11/18/18 1026: Progress Note Ms Jim continues her recovery She is a full, active participant in all therapy Leukocytosis resolving, continued thrombocytosis. No clinical signs of infection. Afebrile Monitor outpatient. Planned discharge tomorrow AM with son in private vehicle. YUDI MEDINA DO 11/18/18 2134: Supervisory-Addendum Brief Verification & Attestation Participated in pt care: history, MDM, physical Personally performed: exam, history, MDM, supervision of care Care discussed with: Medical Student Procedures: n/a Results interpretation: Verified all documentation Verification and Attestation of Medical Student E/M Service A medical student performed and documented this service in my presence. I reviewed and verified all information documented by the medical student and made modifications to such information, when appropriate. I personally performed the physical exam and medical decision making. Yudi Medina, Nov 18, 2018,21:34 [facility] Nov 18, 2018 10:26 YUDI MEDINA DO Nov 18, 2018 21:34
--- NOTE | 2018-11-18 11:55 | NUR ---
[facility] Prescription faxed to patient's PCP, Dr. Shayla Hurt, for signature.
--- NOTE | 2018-11-18 14:39 | Therapy Group Daily Note ---
Therapy Daily Group Note Patient Education Topic Other List Below (explain pain , ways to manage pain) Exercises LE Seated Exercise, UE Exercise Session Ratio (pt:therapist): 4:1 Goal of Session: Education on ARU Expectations, Other (list) (ways to manage pain) Goal Met for this Session: Yes Pt Benefit of Group: F/U Use of Strategies @Home, Socialization Other/Notes Pt. participated in group PT OT session. Pt. ambulated to from group with SBA and FWW. Pts shared their names, home town and a little about themselves. Education focused on orientation to ARU as well as ways to manage pain ie, massage, positioning, monitored heat and cold, vibration, trigger point release tools etc. Pt. utilized ice pack on her left thigh/femur during group and was educated on its use. Pts. were taught and participated in seated thoracic extension stretch, hamstring stretch as well as prayer hand stretches and UE stretches. Pts were all interactive and shared ideas and experiences regarding pain management. Pt. to room after Rx . Radha at hand Start Time: 13:00 Stop Time: 14:20 Total Billed Treatment Time: 80 Total Billed Treatment 1, GRP CURT HERNDON PRESS SERVICE READER Nov 18, 2018 14:39
[2018-11-18 15:35] VITALS: BP 110/69
[2018-11-18] MEDS: MELATONIN 3 MG TABLET PO PRN (20:38)
[2018-11-18] MEDS: LOSARTAN 25 MG (COZAAR) TAB PO SCH (20:38)
[2018-11-19 05:45] VITALS: BP 113/70
[2018-11-19] MEDS: CARVEDILOL 6.25 MG (COREG) TAB PO SCH (10:18)
[2018-11-19] MEDS: ASPIRIN E.C. 81 MG (ECOTRIN) TAB PO SCH (10:19)
[2018-11-19] MEDS: SENNA W/DOCUSATE (SENOKOT S) TABLET PO SCH (10:20)
[2018-11-19] MEDS: POLYETHYLENE GLYCOL 17 GM (MIRALAX) PACK PO SCH (10:20)
[2018-11-19] MEDS: ENOXAPARIN 40 MG/0.4 ML (LOVENOX) SYR SC SCH (10:21)
[2018-11-19] MEDS ORDERED: CARV6.252 PO (10:39)
[2018-11-19] MEDS ORDERED: ACHD5005 PO (10:39)
[2018-11-19] MEDS ORDERED: LOSA25TA41 PO (10:39)
--- NOTE | 2018-11-19 10:42 | Discharge Summary ---
Diagnosis/Chief Complaint Date of Admission Nov 10, 2018 at 12:25 Date of Discharge Discharge Date: Nov 19, 2018 Discharge Diagnosis Assessment: Left femur fracture open type s/p repair Ligament strain in left knee with left knee pain and restricted ROM Deep femoral artery vascular compromise Dilated Cardiomyopathy nonischemic type Dr Sandoval follows appreciate Dr. Erazo following while Dr. Sandoval is out of town Microcytic anemia Medication induced RTA Orthostatic hypotension BPPV Pre-renal azotemia due to low cardiac output Stress induced hyperglycemia Acid reflux Seasonal allergies MARIO on CPAP Low grade fever resolved. Plan: Dressing and wound care Hold Cozaar and Coreg CBC CMP prn Glucometer testing and monitor Reviewed medication Assistance with therapy until regains independence Appreciate Cardiology Maintain CPAP DC Wednesday (1) Femur fracture (2) Hypotension Status: Acute Qualifiers: Hypotension type: orthostatic hypotension Qualified Codes: I95.1 - Or thostatic hypotension (3) History of pancreatitis Status: Chronic (4) GERD without esophagitis Status: Chronic (5) Postoperative anemia Status: Acute (6) DVT prophylaxis Status: Acute (7) Dilated cardiomyopathy Status: Chronic (8) Orthostasis Status: Acute (9) MARIO on CPAP Status: Chronic (10) Fever, low grade Discharge Summary Discharge Physical Examination Allergies: Coded Allergies: No Known Allergies (Unverified Allergy, Unknown, 02/09/17) Vitals & I&Os Vital Signs Date Time Temp Pulse Resp B/P (MAP) Pulse Ox O2 Delivery O2 Flow Rate FiO2 11/19/18 15:20 84 18 109/68 Room Air 11/19/18 05:45 99.0 94 General Appearance: Alert, Oriented X3, Cooperative Respiratory: Clear to Auscultation, Normal Air Movement Cardiovascular: Regular Rate, Normal S1, Normal S2 Neuro: Normal Gait, Normal Speech, Strength at 5/5 X4 Ext Psych/Mental Status: Mental Status NL, Mood NL Hospital Course Was the Problem List Reviewed?: Yes Hospital course: patient was admitted to IRF following an open left femur fracture with significant disability due to pain. Pain meds were maintained with good results along with Cardiology consultation for orthostatic hypotension which resulted in decreased dose of HTN meds with good results. Patient regained independent ADLs' and able to walk with FWW and was ready for DC. Labs (last 24 hrs) Laboratory Tests 11/11/18 05:50: White Blood Count 10.1, Red Blood Count 3.62L, Hemoglobin 8.9L, Hematocrit 28L, Mean Corpuscular Volume 78L, Mean Corpuscular Hemoglobin 25, Mean Corpuscular Hemoglobin Concent 32, Red Cell Distribution Width 20.5H, Platelet Count 349, Mean Platelet Volume 9.6, Neutrophils (%) (Auto) 64, Lymphocytes (%) (Auto) 21, Monocytes (%) (Auto) 9, Eosinophils (%) (Auto) 5, Basophils (%) (Auto) 1, Neutrophils # (Auto) 6.4, Lymphocytes # (Auto) 2.2, Monocytes # (Auto) 0.9, Eosinophils # (Auto) 0.5H, Basophils # (Auto) 0.1, Sodium Level 136, Potassium Level 4.0, Chloride Level 104, Carbon Dioxide Level 25, Anion Gap 7, Blood Urea Nitrogen 13, Creatinine 0.61, Estimat Glomerular Filtration Rate > 60, BUN/Creatinine Ratio 21, Glucose Level 103, Calcium Level 9.6, Corrected Calcium 10.4H, Total Bilirubin 0.6, Aspartate Amino Transf (AST/SGOT) 35H, Alanine Aminotransferase (ALT/SGPT) 37, Alkaline Phosphatase 88, Total Protein 6.1L, Albumin 3.0L 11/16/18 05:00: Sodium Level 135, Potassium Level 4.6, Chloride Level 101, Carbon Dioxide Level 25, Anion Gap 9, Blood Urea Nitrogen 20H, Creatinine 0.64, Estimat Glomerular Filtration Rate > 60, BUN/Creatinine Ratio 31, Glucose Level 88, Calcium Level 9.3, Magnesium Level 2.1 11/16/18 05:20: White Blood Count 13.9H, Red Blood Count 3.63L, Hemoglobin 9.0L, Hematocrit 30L, Mean Corpuscular Volume 82, Mean Corpuscular Hemoglobin 25, Mean Corpuscular Hemoglobin Concent 30L, Red Cell Distribution Width 22.1H, Platelet Count 619H, Mean Platelet Volume 9.2 11/18/18 05:45: White Blood Count 11.7H, Red Blood Count 3.53L, Hemoglobin 8.9L, Hematocrit 29L, Mean Corpuscular Volume 82, Mean Corpuscular Hemoglobin 25, Mean Corpuscular Hemoglobin Concent 31L, Red Cell Distribution Width 22.8H, Platelet Count 671H, Mean Platelet Volume 9.2, Neutrophils (%) (Auto) 61, Lymphocytes (%) (Auto) 26, Monocytes (%) (Auto) 7, Eosinophils (%) (Auto) 5, Basophils (%) (Auto) 1, Neutrophils # (Auto) 7.1, Lymphocytes # (Auto) 3.1, Monocytes # (Auto) 0.8, Eosinophils # (Auto) 0.6H, Basophils # (Auto) 0.1, Sodium Level 137, Potassium Level 4.4, Chloride Level 103, Carbon Dioxide Level 25, Anion Gap 9, Blood Urea Nitrogen 20H, Creatinine 0.63, Estimat Glomerular Filtration Rate > 60, BUN/Creatinine Ratio 32, Glucose Level 80, Calcium Level 9.7, Corrected Calcium 10.4H, Total Bilirubin 0.5, Aspartate Amino Transf (AST/SGOT) 23, Alanine Aminotransferase (ALT/SGPT) 31, Alkaline Phosphatase 98, Total Protein 6.3L, Albumin 3.1L Pending Labs Laboratory Tests 11/11/18 05:50: White Blood Count 10.1, Red Blood Count 3.62, Hemoglobin 8.9, Hematocrit 28, Mean Corpuscular Volume 78, Mean Corpuscular Hemoglobin 25, Mean Corpuscular Hemoglobin Concent 32, Red Cell Distribution Width 20.5, Platelet Count 349, Mean Platelet Volume 9.6, Neutrophils (%) (Auto) 64, Lymphocytes (%) (Auto) 21, Monocytes (%) (Auto) 9, Eosinophils (%) (Auto) 5, Basophils (%) (Auto) 1, Neutrophils # (Auto) 6.4, Lymphocytes # (Auto) 2.2, Monocytes # (Auto) 0.9, Eosinophils # (Auto) 0.5, Basophils # (Auto) 0.1, Sodium Level 136, Potassium Level 4.0, Chloride Level 104, Carbon Dioxide Level 25, Anion Gap 7, Blood Urea Nitrogen 13, Creatinine 0.61, Estimat Glomerular Filtration Rate > 60, BUN/Creatinine Ratio 21, Glucose Level 103, Calcium Level 9.6, Corrected Calcium 10.4, Total Bilirubin 0.6, Aspartate Amino Transf (AST/SGOT) 35, Alanine Aminotransferase (ALT/SGPT) 37, Alkaline Phosphatase 88, Total Protein 6.1, Albumin 3.0 11/16/18 05:00: Sodium Level 135, Potassium Level 4.6, Chloride Level 101, Carbon Dioxide Level 25, Anion Gap 9, Blood Urea Nitrogen 20, Creatinine 0.64, Estimat Glomerular Filtration Rate > 60, BUN/Creatinine Ratio 31, Glucose Level 88, Calcium Level 9.3, Magnesium Level 2.1 11/16/18 05:20: White Blood Count 13.9, Red Blood Count 3.63, Hemoglobin 9.0, Hematocrit 30, Mean Corpuscular Volume 82, Mean Corpuscular Hemoglobin 25, Mean Corpuscular Hemoglobin Concent 30, Red Cell Distribution Width 22.1, Platelet Count 619, Mean Platelet Volume 9.2 11/18/18 05:45: White Blood Count 11.7, Red Blood Count 3.53, Hemoglobin 8.9, Hematocrit 29, Mean Corpuscular Volume 82, Mean Corpuscular Hemoglobin 25, Mean Corpuscular Hemoglobin Concent 31, Red Cell Distribution Width 22.8, Platelet Count 671, Mean Platelet Volume 9.2, Neutrophils (%) (Auto) 61, Lymphocytes (%) (Auto) 26, Monocytes (%) (Auto) 7, Eosinophils (%) (Auto) 5, Basophils (%) (Auto) 1, Neutrophils # (Auto) 7.1, Lymphocytes # (Auto) 3.1, Monocytes # (Auto) 0.8, Eosinophils # (Auto) 0.6, Basophils # (Auto) 0.1, Sodium Level 137, Potassium Level 4.4, Chloride Level 103, Carbon Dioxide Level 25, Anion Gap 9, Blood Urea Nitrogen 20, Creatinine 0.63, Estimat Glomerular Filtration Rate > 60, BUN/Creatinine Ratio 32, Glucose Level 80, Calcium Level 9.7, Corrected Calcium 10.4, Total Bilirubin 0.5, Aspartate Amino Transf (AST/SGOT) 23, Alanine Aminotransferase (ALT/SGPT) 31, Alkaline Phosphatase 98, Total Protein 6.3, Albumin 3.1 Discharge Home Medications: Active Scripts Active Carvedilol 6.25 Mg Tablet 6.25 Mg PO BID Losartan Potassium 25 Mg Tablet 25 Mg PO HS Hydrocodone/Acetaminophen 5/325mg Tablet (Acetaminophen/Hydrocodone Bitart) 1 Tab Tab 1 Tab PO Q4H PRN Reported Furosemide 40 Mg Tablet 40 Mg PO DAILY Aspirin EC (Aspirin) 81 Mg Tablet.dr 81 Mg PO DAILY Potassium Chloride 10 Meq Capsule.er 10 Meq PO BID Instructions to patient/family Please see electronic discharge instructions given to patient. Diagnosis/Problems Diagnosis/Problems (1) Femur fracture Qualifiers: Qualified Codes: S72.8X9D - Other fracture of unspecified femur, subsequent encounter for closed fracture with routine healing (2) Hypotension Status: Acute Qualifiers: Qualified Codes: I95.1 - Orthostatic hypotension (3) History of pancreatitis Status: Chronic (4) GERD without esophagitis Status: Chronic (5) Postoperative anemia Status: Acute (6) DVT prophylaxis Status: Acute (7) Dilated cardiomyopathy Status: Chronic (8) Orthostasis Status: Acute (9) MARIO on CPAP Status: Chronic (10) Fever, low grade Clinical Quality Measures DVT/VTE Risk/Contraindication: Risk Factor Score Per Nursin RFS Level Per Nursing on Admit: 4+=Very High CHITRA SIERRA DO Nov 19, 2018 10:42
[2018-11-19 15:20] VITALS: BP 109/68
--- NOTE | 2018-11-21 09:21 | Therapy Team Discharge Summary ---
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 Upon admission, she was mod assist with transfers walked short distances with CGA and went across 1 step with assist. Treatment has consisted of functional strength and balance to progress transfers and gait to a mod indep level. She has made good progress and achieved all goals to a satisfactory level. Pt to discharge home with family support and outpt PT to follow. DC from ARU at this time. 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 Time Frame: Nov 24, 2018 Transfers (B,C,W/C) (FIM): 7 (scored a 6) Roll Left to Right (QC): 6 Sit to Lying (QC): 6 Lying-Sitting on Side/Bed(QC): 6 Sit to Stand (QC): 6 Chair/Usl-ai-Aqpnq Xfer(QC): 6 Car Transfer (QC): 6 Does the Patient Walk: Yes Gait (FIM): 6 (met) Gait distance (FIM): 3=150 ft Walk 10 feet (QC): 6 Walk 10ft-Uneven Surface(QC): 6 Walk 50ft with 2 Turns (QC): 6 Walk 150 ft (QC): 6 Gait Assistive Device: FWW Does the Pt use WC or Scooter?: No Stairs (FIM): 5 (household) # of Steps: 4 1 Step (curb) (QC): 6 4 Steps (QC): 6 12 Steps (QC): 88 Stairs Level Of Assist: 6 Picking up an Object (QC): 88 goals met to a satisfactory level OT Nursing Home Goals Nursing Home Goals Time Frame: Nov 24, 2018 Eating (FIM): 7 (met-11/18/18) Eating (QC): 6 (met-11/18/18) Oral Hygiene (QC): 6 (met-11/18/18) Grooming(FIM): 6 (met-11/18/18) Bathing(FIM): 5 (met-11/18/18) Shower/Bathe Self (QC): 5 (-11/18/18) Upper Body Dressing(FIM): 6 (met-11/18/18) Upper Body Dressing (QC): 6 (met-11/18/18) Lower Body Dressing(FIM): 6 (met-11/18/18) Lower Body Dressing (QC): 6 (met-11/18/18) On/Off Footwear (QC): 6 (-11/18/18) Toileting(FIM): 6 (-11/18/18) Toileting Hygiene (QC): 6 (met-11/18/18) Transfers (B,C,W/C) (FIM): 6 (-11/18/18) Toilet/Commode Transfer(FIM): 6 (-11/18/18) Toilet/Commode Transfer (QC): 6 (-11/18/18) Shower Transfer(FIM): 6 (-11/18/18) Additional Goals: 1-Demonstrate ADL Tasks, 2-Verbalize Understanding, 3-Imp roveStrength/Lefty 1=Demonstrate adherence to instructed precautions during ADL tasks. 2=Patient will verbalize/demonstrate understanding of assistive devices/modifications for ADL. 3=Patient will improve strength/tolerance for activity to enable patient to perform ADL's. DAVINA GIBBS PT Nov 21, 2018 09:21
--- NOTE | 2018-11-22 09:22 | Therapy Team Discharge Summary ---
Therapy Discharge Summary Discharge Recommendations Date of Discharge Nov 19, 2018 at 12:10 Therapy D/C Recommendations: Home w/ Family Support, Physical Therapy Outpatient Occupational Therapy Pt. seen by occupational therapy to increase overall strength and independence. Pt. has met all goals and has discharged home with family support. Pt. has needed equipment. Pt. does not need further OT assessment at this time. No Skilled OT Needs ID'd PT Scaffolder Goals Scaffolder Goals PT Jail Goals Time Frame: Nov 24, 2018 Transfers (B,C,W/C) (FIM): 7 (scored a 6) Roll Left to Right (QC): 6 Sit to Lying (QC): 6 Lying-Sitting on Side/Bed(QC): 6 Sit to Stand (QC): 6 Chair/Ikv-gu-Ucutm Xfer(QC): 6 Car Transfer (QC): 6 Does the Patient Walk: Yes Gait (FIM): 6 (met) Gait distance (FIM): 3=150 ft Walk 10 feet (QC): 6 Walk 10ft-Uneven Surface(QC): 6 Walk 50ft with 2 Turns (QC): 6 Walk 150 ft (QC): 6 Gait Assistive Device: FWW Does the Pt use WC or Scooter?: No Stairs (FIM): 5 (household) # of Steps: 4 1 Step (curb) (QC): 6 4 Steps (QC): 6 12 Steps (QC): 88 Stairs Level Of Assist: 6 Picking up an Object (QC): 88 OT Jail Goals Jail Goals Time Frame: Nov 24, 2018 Eating (FIM): 7 (met-11/18/18) Eating (QC): 6 (met-11/18/18) Oral Hygiene (QC): 6 (met-11/18/18) Grooming(FIM): 6 (met-11/18/18) Bathing(FIM): 5 (met-11/18/18) Shower/Bathe Self (QC): 5 (met-11/18/18) Upper Body Dressing(FIM): 6 (met-11/18/18) Upper Body Dressing (QC): 6 (met-11/18/18) Lower Body Dressing(FIM): 6 (met-11/18/18) Lower Body Dressing (QC): 6 (met-11/18/18) On/Off Footwear (QC): 6 ([facility]-11/18/18) Toileting(FIM): 6 ([facility]-11/18/18) Toileting Hygiene (QC): 6 ([facility]-11/18/18) Transfers (B,C,W/C) (FIM): 6 ([facility]-11/18/18) Toilet/Commode Transfer(FIM): 6 ([facility]-11/18/18) Toilet/Commode Transfer (QC): 6 ([facility]-11/18/18) Shower Transfer(FIM): 6 ([facility]-11/18/18) Additional Goals: 1-Demonstrate ADL Tasks, 2-Verbalize Understanding, 3- ImproveStrength/Lefty 1=Demonstrate adherence to instructed precautions during ADL tasks. 2=Patient will verbalize/demonstrate understanding of assistive devices/modifications for ADL. 3=Patient will improve strength/tolerance for activity to enable patient to perform ADL's. EDIL EUBANKS OT Nov 22, 2018 09:22
== END 2018-11-19 12:10 | disposition home or self-care (01) | DRG 560 ==
PROVIDERS: ADMIT Internal Medicine; ATTEND Internal Medicine
DX: S72.402E Unspecified fracture of lower end of left femur, subsequent encounter for open fracture type I or II with routine healing (principal); S86.912D Strain of unspecified muscle(s) and tendon(s) at lower leg level, left leg, subsequent encounter; S75.092 Other specified injury of femoral artery, left leg; I42.0 Dilated cardiomyopathy; I11.0 Hypertensive heart disease with heart failure; I50.22 Chronic systolic (congestive) heart failure; I25.10 Atherosclerotic heart disease of native coronary artery without angina pectoris; I95.1 Orthostatic hypotension; H81.10 Benign paroxysmal vertigo, unspecified ear; G47.33 Obstructive sleep apnea (adult) (pediatric); I08.0 Rheumatic disorders of both mitral and aortic valves; E66.9 Obesity, unspecified; K21.9 Gastro-esophageal reflux disease without esophagitis; R79.89 Other specified abnormal findings of blood chemistry; R73.9 Hyperglycemia, unspecified; D64.9 Anemia, unspecified; J44.9 Chronic obstructive pulmonary disease, unspecified; R50.9 Fever, unspecified
CPT/HCPCS: 36415; 72170; 73552; 73562; 80048; 80053; 83735; 85025; 85027; 93005

== ENCOUNTER → 2019-02-23 | Outpatient (RCR) | payer BC ==
[~2019-02-23] MED LIST changes: +ACHD5005 PO; +ASPI-983 PO; +CARV12.53 PO; +CARV6.252 PO; +ENOX40DI13 SQ; +HYDR-3816 PO; +LOSA25TA41 PO; +LOSA50TA63 PO; +POTA10CA43 PO
== END | disposition home or self-care (01) ==
PROVIDERS: ATTEND Nurse Practitioner Family
DX: S72.402E Unspecified fracture of lower end of left femur, subsequent encounter for open fracture type I or II with routine healing (principal); W23.0XXD Caught, crushed, jammed, or pinched between moving objects, subsequent encounter

== ENCOUNTER 2019-05-02 16:26 | Outpatient (RCR) | payer BC ==
[~2019-05-02 16:26] MED LIST changes: -SACU1TAB PO; +SACU1TAB2 PO
== END 2019-05-04 14:16 | disposition home or self-care (01) ==
PROVIDERS: ATTEND Nurse Practitioner Family
DX: S72.92XA Unspecified fracture of left femur, initial encounter for closed fracture (principal); W20.8XXA Other cause of strike by thrown, projected or falling object, initial encounter

== ENCOUNTER → 2019-09-08 | Outpatient (CLI) | payer BC ==
[~2019-09-08] MED LIST changes: +HYDR-34 PO; -HYDR-3816 PO
== END ==
LOC: CARD 12:34
PROVIDERS: ATTEND Internal Medicine Cardiovascular Disease
DX: I42.9 Cardiomyopathy, unspecified (principal); I50.9 Heart failure, unspecified; G47.33 Obstructive sleep apnea (adult) (pediatric)
CPT/HCPCS: 93306

== ENCOUNTER → 2020-10-16 | Outpatient (CLI) | payer BC ==
[~2020-10-16] MED LIST changes: +ASPI-1238 PO; -ASPI-983 PO; -LISI-552 PO; +LISI20TA26 PO
== END ==
LOC: CARD 09:00
PROVIDERS: ATTEND Nurse Practitioner Family
DX: I51.7 Cardiomegaly (principal); I42.0 Dilated cardiomyopathy
CPT/HCPCS: 93306

== ENCOUNTER 2020-12-02 10:45 | Outpatient (CLI) | payer BC | END 2020-12-02 11:05 | LOC: SLEEP 10:45 | PROVIDERS: ATTEND Otolaryngology Otolaryngology/Facial Plastic Surgery | DX: G47.33 Obstructive sleep apnea (adult) (pediatric) (principal); G47.10 Hypersomnia, unspecified; I11.0 Hypertensive heart disease with heart failure; I50.9 Heart failure, unspecified | CPT/HCPCS: G0399 ==

== ENCOUNTER → 2021-07-23 | Outpatient (CLI) | payer BC ==
[2021-07-23 16:09] LABS: POTASSIUM 3.9 MMOL/L (3.6-5.0)
[2021-07-23 16:10] LABS: CALCIUM 10.1 MG/DL (8.5-10.1)
[2021-07-23 16:14] LABS: CREATININE SERUM 0.96 MG/DL (0.60-1.30)
[2021-07-23 16:17] LABS: MAGNESIUM 1.9 MG/DL (1.6-2.4)
== END ==
LOC: LAB 15:46
PROVIDERS: ATTEND Internal Medicine Cardiovascular Disease
DX: I42.0 Dilated cardiomyopathy (principal); G47.33 Obstructive sleep apnea (adult) (pediatric); I50.22 Chronic systolic (congestive) heart failure
CPT/HCPCS: 36415; 80048; 83735

== ENCOUNTER → 2022-09-10 | Outpatient (CLI) | payer BC ==
[~2022-09-10] MED LIST changes: -POTA10CA43 PO; +POTA10CA44 PO
== END ==
LOC: CARD 13:58
PROVIDERS: ATTEND Nurse Practitioner Family
DX: I35.1 Nonrheumatic aortic (valve) insufficiency (principal); I50.22 Chronic systolic (congestive) heart failure
CPT/HCPCS: 93306